=== PATIENT | female | born 1985 | race Caucasian/White ===

== ENCOUNTER 2016-12-07 17:28 | Emergency (ER) | payer BC ==
[2016-12-07 18:07] VITALS: BP 111/76
[2016-12-07] MEDS ORDERED: Ondansetron ODT TAB* 4 MG PO ONE (18:43)
--- NOTE | 2016-12-07 18:56 | UC ---
Ishan Calabrese Rebecca, scribed for Malathi Kohli MD on 12/07/16 at 1820 . GI Bleed HPI - HPI Summary HPI Summary: Pt is a 31 y/o F accompanied by her friend who presents to [facility] c/o hematemesis and acute on chronic abd pain. Symptoms began a few hours ago and abd pain has been constant since onset. Pain is in the RLQ, is currently ranked 7/10 and characterized as sharp. Reports two episodes of hematemesis while at work, the first more severe than the latter, with a small amount of blood present. Sx aggravated and alleviated by nothing. Pt has been taking Excedrin to treat the pain. LAst dose this am. Additionally c/o nausea, lightheadedness and dizziness. Pt attributes lightheadedness and dizziness as being secondary to a nasal cyst that is being surgically removed in 2 weeks. Denies dysuria and melena. Current abdominal pain is unlike previous pain associated with gastritis. 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 PSHx Rashad fundoplication. Denies recent sick contacts. Current menses, day #2, no h/o ovarian cysts - History Of Current Complaint Chief Complaint: [facility] [place] Stated Complaint: VOMITING Time Seen by Provider: 12/07/16 18:13 Hx Obtained From: Patient Hx Last Menstrual Period: 12/06/16 Onset/Duration: Sudden Onset, Still Present Timing: Constant Severity: Hematemesis Severity Initially: Moderate Severity Currently: Severe Pain Intensity: 7 Pain Scale Used: 0-10 Numeric Associated Pain: Discrete @ - RLQ Character: Sharp Aggravating Factor(s): Other - Nothing Alleviating Factor(s): Other - Nothing Associated Signs And Symptoms: Positive: Dizziness, Nausea, Other - Lightheadedness - Allergies/Home medications Allergies/Adverse Reactions: Allergies Allergy/AdvReac Type Severity Reaction Status Date / Time Pregabalin [From Lyrica] Allergy Severe Anaphylatic Verified 07/31/15 08:17 Shock Gabapentin Allergy Intermediate Hives Verified 07/31/15 08:17 Sulfa Drugs Allergy Intermediate Hives Verified 07/31/15 08:17 Amitriptyline [From Elavil] Allergy Unknown Verified 07/31/15 08:17 Reaction Details Amoxicillin Allergy Anaphylatic Verified 07/31/15 08:17 Shock [place] Blue FCF Allergy Unknown Verified 07/31/15 08:17 [From Jolessa] Reaction Details Bupropion [From Wellbutrin] Allergy Unknown Verified 07/31/15 08:17 Reaction Details Butalbital Allergy Unknown Verified 07/31/15 08:17 Reaction Details Carisoprodol Allergy Unknown Verified 07/31/15 08:17 Reaction Details Cefaclor Allergy Unknown Verified 07/31/15 08:17 Reaction Details Cefadroxil Allergy Unknown Verified 07/31/15 08:17 Reaction Details Cefdinir Allergy Unknown Verified 07/31/15 08:17 Reaction Details Celecoxib [From Celebrex] Allergy Unknown Verified 07/31/15 08:17 Reaction Details Cephalexin Allergy Unknown Verified 07/31/15 08:17 Reaction Details CI Pigment Blue 63 Allergy Unknown Verified 07/31/15 08:17 [From Cymbalta] Reaction Details Ciprofloxacin [From Cipro] Allergy Numbness Verified 07/31/15 08:17 And Tingling Clarithromycin Allergy Unknown Verified 07/31/15 08:17 Reaction Details Clindamycin Allergy Unknown Verified 07/31/15 08:17 [From Cleocin HCl] Reaction Details Codeine Allergy Unknown Verified 07/31/15 08:17 Reaction Details Desogestrel [From Kariva] Allergy Unknown Verified 07/31/15 08:17 Reaction Details Donepezil [From Aricept] Allergy Unknown Verified 07/31/15 08:17 Reaction Details Doxycycline Allergy Unknown Verified 07/31/15 08:17 Reaction Details Drospirenone [From Annabella] Allergy Unknown Verified 07/31/15 08:17 Reaction Details Duloxetine [From Cymbalta] Allergy Unknown Verified 07/31/15 08:17 Reaction Details Eletriptan [From Relpax] Allergy Unknown Verified 07/31/15 08:17 Reaction Details Escitalopram [From Lexapro] Allergy Unknown Verified 07/31/15 08:17 Reaction Details Ethinyl Estradiol Allergy Unknown Verified 07/31/15 08:17 [From Jolessa] Reaction Details Fluoxetine Allergy Unknown Verified 07/31/15 08:17 Reaction Details Hydrocodone Allergy Unknown Verified 07/31/15 08:17 Reaction Details Ibuprofen Allergy Unknown Verified 07/31/15 08:17 Reaction Details Lamotrigine [From Lamictal] Allergy Unknown Verified 07/31/15 08:17 Reaction Details Levofloxacin [From Levaquin] Allergy Unknown Verified 07/31/15 08:17 Reaction Details Levonorgestrel [From Jolessa] Allergy Unknown Verified 07/31/15 08:17 Reaction Details [place] Allergy Unknown Verified 07/31/15 08:17 Reaction Details Loratadine Allergy Unknown Verified 07/31/15 08:17 Reaction Details Meloxicam Allergy Unknown Verified 07/31/15 08:17 Reaction Details Metformin [From Glucophage] Allergy Unknown Verified 07/31/15 08:17 Reaction Details Metoclopramide [From Reglan] Allergy Unknown Verified 07/31/15 08:17 Reaction Details Naproxen [From Treximet] Allergy Unknown Verified 07/31/15 08:17 Reaction Details Norethindrone [From Necon] Allergy Unknown Verified 07/31/15 08:17 Reaction Details Pioglitazone [From Actos] Allergy Unknown Verified 07/31/15 08:17 Reaction Details Propranolol Allergy Unknown Verified 07/31/15 08:17 Reaction Details Red Dye [From Jolessa] Allergy Unknown Verified 07/31/15 08:17 Reaction Details Rizatriptan [From Maxalt] Allergy Unknown Verified 07/31/15 08:17 Reaction Details Sertraline [From Zoloft] Allergy Unknown Verified 07/31/15 08:17 Reaction Details Sulfamethoxazole Allergy Unknown Verified 07/31/15 08:17 w/Trimethoprim Reaction [From Bactrim] Details Sumatriptan [From Imitrex] Allergy Unknown Verified 07/31/15 08:17 Reaction Details Topiramate [From Topamax] Allergy Unknown Verified 07/31/15 08:17 Reaction Details Tramadol Allergy Unknown Verified 07/31/15 08:17 Reaction Details Trazodone Allergy Unknown Verified 07/31/15 08:17 Reaction Details Venlafaxine [From Effexor] Allergy Unknown Verified 07/31/15 08:17 Reaction Details Zolmitriptan [From Zomig] Allergy Unknown Verified 07/31/15 08:17 Reaction Details sprintec Allergy Unknown Uncoded 07/31/15 08:17 Reaction Details VINYL Allergy problems Uncoded 07/31/15 08:17 with breathing PMH/Surg Hx/FS Hx/Imm Hx Previously Healthy: No - insulin resistance, pcos, sinus cysts Endocrine History Of: Reports: Thyroid Disease - Hoshimotos Denies: Diabetes, Hyperthyroidism, Hypothyroidism, Dyslipidemia Cardiovascular History Of: Denies: Cardiac Disorders, Hypertension, Pacemaker/ICD, Myocardial Infarction , Congestive Heart Failure, Atrial Fibrillation, Deep Vein Thrombosis, Bleeding Disorders Respiratory History Of: Reports: Asthma Denies: COPD, Bronchitis, Pneumonia, Pulmonary Embolism GI/ History Of: Denies: Gastroesophageal Reflux, Ulcer, Gastrointestinal Bleed, Gall Bladder Disease, Kidney Stones, Diverticulitis, Renal Disease, Urosepsis Neurological History Of: Reports: Migraine - ROUTINE MEDICATION FOR Denies: TIA, CVA, Dementia, Seizures Psychological History Of: Denies: Anxiety, Depression, Bipolar Disorder, Schizophrenia, Post Traumatic Stress Disorder Cancer History Of: Denies: Lung Cancer, Colorectal Cancer, Breast Cancer, Prostate Cancer, Cervical Cancer Other History Of: Negative For: HIV, Hepatitis B, Hepatitis C, Anticoagulant Therapy - Surgical History Surgical History: Yes Surgery Procedure, Year, and Place: leep procedure 2013, foot operation 2015, fundoplication - Family History Known Family History: Positive: Cardiac Disease, Hypertension - Social History Occupation: Employed Full-time Lives: Alone Alcohol Use: None Substance Use Type: None Smoking Status (MU): Former Smoker Amount Used/How Often: 1 PPD X 6 MONTHS Have You Smoked in the Last Year: No When Did the Patient Quit Smoking/Using Tobacco: 2009 Review of Systems Constitutional: Negative Skin: Negative Eyes: Negative ENT: Negative Respiratory: Negative Cardiovascular: Negative Gastrointestinal: Abdominal Pain - RLQ, Other - nausea, hematemesis 2x Genitourinary: Negative Motor: Negative Neurovascular: Negative Musculoskeletal: Negative Neurological: Other - Lightheadedness and dizziness (secondary to nasal cyst) Psychological: Negative All Other Systems Reviewed And Are Negative: Yes Physical Exam Triage Information Reviewed: Yes Appearance: Well-Appearing, No Pain Distress, Well-Nourished, Other: - Pt laughing, interacting, intermittently expresses pain Vital Signs: Initial Vital Signs Temp 98.0 F 12/07/16 18:01 Pulse 68 12/07/16 18:01 Resp 18 12/07/16 18:01 BP 111/76 12/07/16 18:01 Pulse Ox 100 12/07/16 18:01 Vital Signs Reviewed: Yes Eye Exam: Normal ENT Exam: Normal Dental Exam: Normal Neck exam: Normal Neck: Positive: Supple, Nontender, No Lymphadenopathy Respiratory Exam: Normal Respiratory: Positive: Chest non-tender Cardiovascular Exam: Normal Cardiovascular: Positive: RRR, No Murmur Abdomen Description: Positive: Soft. Negative: Nontender - + TTP right mid abdomen. No guarding , no rebound. abd soft + BS No suprapubic discomfort Bowel Sounds: Positive: Present Musculoskeletal Exam: Normal Musculoskeletal: Positive: Strength Intact Neurological Exam: Normal Neurological: Positive: Alert Skin Exam: Normal Bleed Course/Dx - Course Course Of Treatment: Pt with right LQ pain, vomit x 2 with hemetemsis today. Pt with h/o gastritis s/p fundoplication - states feels different. Pt is taking excedrin for sinus cyst- scheduled for surgery. diff includes gastroenteritis, gastris, low suspicion but possible appendicitis. will give zofran ODT. transfer to ED for further eval. Pt by private car - in agreement with plan - Differential Dx/Diagnosis Provider Diagnoses: hematemesis. RLQ abd pain - Physician Notification/Consults Discussed Patient Care With: Dr. Angelo - [facility] [place] to ED for eval Time Discussed With Above Provider: 18:45 Instructed by Provider To: Transfer Discharge - Discharge Plan Condition: Stable Disposition: OTHER Discharge Disposition Comment: transfer to [facility] [place] for further eval Patient Education Materials: Abdominal Pain (ED), Hematemesis (ED) Referrals: Maritza Hector NP [Primary Care Provider] - Additional Instructions: Go directly to the emergency department at [facility]. They are expecting you Do not eat or drink anything until you are further evaluated Contact your doctor or return with questions or concerns The documentation as recorded by the Ishan larsen Rebecca accurately reflects the service I personally performed and the decisions made by me, Malathi Kohli MD.
== END 2016-12-07 19:05 | disposition left against medical advice (07) ==
LOC: UCEAST 17:28
DX: K92.0 Hematemesis (principal); R10.31 Right lower quadrant pain; E06.3 Autoimmune thyroiditis; J45.909 Unspecified asthma, uncomplicated; G43.909 Migraine, unspecified, not intractable, without status migrainosus; Z88.6 Allergy status to analgesic agent; Z88.1 Allergy status to other antibiotic agents; Z88.2 Allergy status to sulfonamides; Z88.8 Allergy status to other drugs, medicaments and biological substances; Z91.048 Other nonmedicinal substance allergy status
CPT/HCPCS: 99212; A9270-GY; G0463

== ENCOUNTER 2016-12-07 19:54 | Emergency (ER) | payer BC ==
[2016-12-07 20:04] VITALS: BP 98/74
[2016-12-07 20:42] LABS: Hematocrit 39 % (35-47); Hemoglobin 12.9 g/dl (12.0-16.0); Mean Corpuscular HGB Conc 33 g/dl (31-36); Mean Corpuscular Hemoglobin 30 pg (27-31); Mean Corpuscular Volume 91 fL (80-97); Mean Platelet Volume 10 um3 (7.4-10.4); Red Cell Distribution Width 13 % (10.5-15); White Blood Count 7.6 10^3/ul (3.5-10.8)
[2016-12-07 20:57] LABS: ALT 27 U/L (7-52); AST 28 U/L (13-39); Albumin 3.8 g/dL (3.2-5.2); Alkaline Phosphatase 59 U/L (34-104); Anion Gap 8 mmol/L (2-11); BUN/Creatinine Ratio 20.5 (8-20); Blood Urea Nitrogen 16 mg/dL (6-24); CO2 Carbon Dioxide 26 mmol/L (22-32); Calcium 9.3 mg/dL (8.6-10.3); Chloride 102 mmol/L (101-111); EGFR African American 110.1 (>60); EGFR Non-African American 85.6 (>60); Globulin 3.2 g/dL (2-4); Glucose 132 mg/dL (70-100); Lipase 19 U/L (11.0-82.0); Potassium 3.4 mmol/L (3.5-5.0); Sodium 136 mmol/L (133-145)
[2016-12-07 21:49] LABS: Urine Bacteria Absent (Absent); Urine Bilirubin Negative (Negative); Urine Glucose Negative (Negative); Urine Nitrite Negative (Negative)
[2016-12-07] MEDS ORDERED: Ondansetron ODT TAB* 4 MG PO ONE (21:53)
[2016-12-07] MEDS ORDERED: Al Hydrox/Mg Hydrox/Simet LIQ* 30 ML UDC PO ONE (21:53)
[2016-12-07] MEDS ORDERED: Lidocaine 2% VISCOUS* 15 ML UDC PO ONE (21:53)
[2016-12-07] MEDS ORDERED: Omeprazole CAP* 20 MG PO ONE (21:53)
--- NOTE | 2016-12-08 06:54 | ED ---
Lakshmi Calabrese Anna, scribed for Devin Callahan MD on 12/07/16 at 2128 . GI/ HPI - HPI Summary HPI Summary: Patient is a 31 y/o female coming to [facility] presenting with the sudden onset of hematemesis that began today. She had two episodes of hematemesis and one episode of emesis without blood, accompanied by nausea. The hematemesis had flecks of blood. She had chills throughout the day. She has had abdominal pain of severity 8/10 that began one week ago. It feels like a burning pain which has not been alleviated by the use of antacids. Denies diarrhea, melena, fever, diaphoresis. She had hematochezia a few weeks ago, which has since resolved. Denies known sick contacts. She has been taking Excedrin for sinus pain secondary to a cyst in the sinus cavity. She is on Abx at baseline. She previously took Zantac 325 mg/day and Omeprazole, but she does not take them anymore. She was seen at [facility] [place] today for the same symptoms before she was sent here. Patient medications were reviewed this visit. 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 Pain Intensity: 8 - Allergy/Home Medications Allergies/Adverse Reactions: Allergies Allergy/AdvReac Type Severity Reaction Status Date / Time Pregabalin [From Lyrica] Allergy Severe Anaphylatic Verified 12/07/16 20:18 Shock Gabapentin Allergy Intermediate Hives Verified 12/07/16 20:18 Sulfa Drugs Allergy Intermediate Hives Verified 12/07/16 20:18 Amitriptyline [From Elavil] Allergy Unknown Verified 12/07/16 20:18 Reaction Details Amoxicillin Allergy Anaphylatic Verified 12/07/16 20:18 Shock [place] Blue FCF Allergy Unknown Verified 12/07/16 20:18 [From Jolessa] Reaction Details Bupropion [From Wellbutrin] Allergy Unknown Verified 12/07/16 20:18 Reaction Details Butalbital Allergy Unknown Verified 12/07/16 20:18 Reaction Details Carisoprodol Allergy Unknown Verified 12/07/16 20:18 Reaction Details Cefaclor Allergy Unknown Verified 12/07/16 20:18 Reaction Details Cefadroxil Allergy Unknown Verified 12/07/16 20:18 Reaction Details Cefdinir Allergy Unknown Verified 12/07/16 20:18 Reaction Details Celecoxib [From Celebrex] Allergy Unknown Verified 12/07/16 20:18 Reaction Details Cephalexin Allergy Unknown Verified 12/07/16 20:18 Reaction Details CI Pigment Blue 63 Allergy Unknown Verified 12/07/16 20:18 [From Cymbalta] Reaction Details Ciprofloxacin [From Cipro] Allergy Numbness Verified 12/07/16 20:18 And Tingling Clarithromycin Allergy Unknown Verified 12/07/16 20:18 Reaction Details Clindamycin Allergy Unknown Verified 12/07/16 20:18 [From Cleocin HCl] Reaction Details Codeine Allergy Unknown Verified 12/07/16 20:18 Reaction Details Desogestrel [From Kariva] Allergy Unknown Verified 12/07/16 20:18 Reaction Details Donepezil [From Aricept] Allergy Unknown Verified 12/07/16 20:18 Reaction Details Doxycycline Allergy Unknown Verified 12/07/16 20:18 Reaction Details Drospirenone [From Annabella] Allergy Unknown Verified 12/07/16 20:18 Reaction Details Duloxetine [From Cymbalta] Allergy Unknown Verified 12/07/16 20:18 Reaction Details Eletriptan [From Relpax] Allergy Unknown Verified 12/07/16 20:18 Reaction Details Escitalopram [From Lexapro] Allergy Unknown Verified 12/07/16 20:18 Reaction Details Ethinyl Estradiol Allergy Unknown Verified 12/07/16 20:18 [From Jolessa] Reaction Details Fluoxetine Allergy Unknown Verified 12/07/16 20:18 Reaction Details Hydrocodone Allergy Unknown Verified 12/07/16 20:18 Reaction Details Ibuprofen Allergy Unknown Verified 12/07/16 20:18 Reaction Details Lamotrigine [From Lamictal] Allergy Unknown Verified 12/07/16 20:18 Reaction Details Levofloxacin [From Levaquin] Allergy Unknown Verified 12/07/16 20:18 Reaction Details Levonorgestrel [From Jolessa] Allergy Unknown Verified 12/07/16 20:18 Reaction Details [place] Allergy Unknown Verified 12/07/16 20:18 Reaction Details Loratadine Allergy Unknown Verified 12/07/16 20:18 Reaction Details Meloxicam Allergy Unknown Verified 12/07/16 20:18 Reaction Details Metformin [From Glucophage] Allergy Unknown Verified 12/07/16 20:18 Reaction Details Metoclopramide [From Reglan] Allergy Unknown Verified 12/07/16 20:18 Reaction Details Naproxen [From Treximet] Allergy Unknown Verified 12/07/16 20:18 Reaction Details Norethindrone [From Necon] Allergy Unknown Verified 12/07/16 20:18 Reaction Details Pioglitazone [From Actos] Allergy Unknown Verified 12/07/16 20:18 Reaction Details Propranolol Allergy Unknown Verified 12/07/16 20:18 Reaction Details Red Dye [From Jolessa] Allergy Unknown Verified 12/07/16 20:18 Reaction Details Rizatriptan [From Maxalt] Allergy Unknown Verified 12/07/16 20:18 Reaction Details Sertraline [From Zoloft] Allergy Unknown Verified 12/07/16 20:18 Reaction Details Sulfamethoxazole Allergy Unknown Verified 12/07/16 20:18 w/Trimethoprim Reaction [From Bactrim] Details Sumatriptan [From Imitrex] Allergy Unknown Verified 12/07/16 20:18 Reaction Details Topiramate [From Topamax] Allergy Unknown Verified 12/07/16 20:18 Reaction Details Tramadol Allergy Unknown Verified 12/07/16 20:18 Reaction Details Trazodone Allergy Unknown Verified 12/07/16 20:18 Reaction Details Venlafaxine [From Effexor] Allergy Unknown Verified 12/07/16 20:18 Reaction Details Zolmitriptan [From Zomig] Allergy Unknown Verified 12/07/16 20:18 Reaction Details sprintec Allergy Unknown Uncoded 12/07/16 20:18 Reaction Details VINYL Allergy problems Uncoded 12/07/16 20:18 with breathing PMH/Surg Hx/FS Hx/Imm Hx Endocrine/Hematology History: Reports: Hx Thyroid Disease - Hoshimotos Denies: Hx Anticoagulant Therapy, Hx Diabetes Cardiovascular History: Reports: Other Cardiovascular Problems/Disorders - HEART RATE GOES UP WHEN BLOOD SUGAR GETS TOO LOW Denies: Hx Congestive Heart Failure, Hx Deep Vein Thrombosis, Hx Hypertension , Hx Myocardial Infarction, Hx Pacemaker/ICD Respiratory History: Reports: Hx Asthma Denies: Hx Chronic Obstructive Pulmonary Disease (COPD), Hx Lung Cancer, Hx Pneumonia, Hx Pulmonary Embolism GI History: Reports: Hx Gastroesophageal Reflux Disease - ON OCCASION, Hx Hiatal Hernia - HAD SURGERY FOR, Other GI Disorders - GASTRITIS Denies: Hx Gall Bladder Disease, Hx Gastrointestinal Bleed, Hx Ulcer, Hx Urosepsis History: Reports: Other Problems/Disorders - KIDNEY INFECTION Denies: Hx Kidney Stones, Hx Renal Disease Musculoskeletal History: Reports: Hx Tendonitis - HX OF Sensory History: Denies: Hx Contacts or Glasses, Hx Hearing Aid Opthamlomology History: Denies: Hx Contacts or Glasses Neurological History: Reports: Hx Headaches - ROUTINE MEDICATION FOR, Hx Migraine - ROUTINE MEDICATION FOR Denies: Hx Dementia, Hx Seizures, Hx Transient Ischemic Attacks (TIA) Psychiatric History: Reports: Hx Panic Disorder - ANXIETY Denies: Hx Anxiety, Hx Depression, Hx Schizophrenia, Hx Bipolar Disorder - Surgical History Surgery Procedure, Year, and Place: leep procedure 2013, foot operation 2016, fundoplication Hx Anesthesia Reactions: No - Immunization History Date of Tetanus Vaccine: utd - 2009 Date of Influenza Vaccine: none Infectious Disease History: No Infectious Disease History: Denies: Hx Clostridium Difficile, Hx Hepatitis, Hx Human Immunodeficiency Virus (HIV), Hx of Known/Suspected MRSA, Hx Shingles, Hx Tuberculosis, Hx Known/ Suspected VRSA, History Other Infectious Disease, Traveled Outside the [place] in Last 30 Days - Family History Known Family History: Positive: Cardiac Disease, Hypertension - Social History Alcohol Use: None Substance Use Type: Reports: None Smoking Status (MU): Former Smoker Amount Used/How Often: 1 PPD X 6 MONTHS Have You Smoked in the Last Year: No Review of Systems Positive: Chills. Negative: Fever, Skin Diaphoresis Negative: Erythema Negative: Sore Throat Negative: Chest Pain Negative: Shortness Of Breath, Cough Gastrointestinal: Other - Denies melena Positive: Abdominal Pain, Vomiting, Nausea. Negative: Diarrhea Negative: dysuria, hematuria Negative: Myalgia, Edema Negative: Rash Neurological: Other - Denies dizziness All Other Systems Reviewed And Are Negative: Yes Physical Exam - Summary Physical Exam Summary: Constitutional: Well-developed, Well-nourished, Alert. (-) Distressed Skin: Warm, Dry HENT: Normocephalic; Atraumatic Eyes: Conjunctiva normal Neck: Musculoskeletal ROM normal neck. (-) JVD, (-) Stridor, (-) Tracheal deviation Cardio: Rhythm regular, rate normal, Heart sounds normal; Intact distal pulses; The pedal pulses are 2+ and symmetric. Radial pulses are 2+ and symmetric. (-) Murmur Pulmonary/Chest wall: Effort normal. (-) Respiratory distress, (-) Wheezes, (-) Rales Abd: Soft, (-) Tenderness, (-) Distension, (-) Guarding, (-) Rebound Musculoskeletal: (-) Edema Lymph: (-) Cervical adenopathy Neuro: Alert, Oriented x3 Psych: Mood and affect Normal Triage Information Reviewed: Yes Vital Signs On Initial Exam: Initial Vitals Temp Pulse Resp BP Pulse Ox 97.8 F 80 18 98/74 100 12/07/16 20:03 12/07/16 20:03 12/07/16 20:03 12/07/16 20:03 12/07/16 20:03 Vital Signs Reviewed: Yes - [place] Coma Scale Coma Scale Total: 15 Diagnostics - Vital Signs Vital Signs Temp Pulse Resp BP Pulse Ox 12/07/16 20:14 98.8 F 66 14 98/74 99 12/07/16 20:03 97.8 F 80 18 98/74 100 - Laboratory Lab Results: Lab Results 12/07/16 12/07/16 Range/Units 20:30 20:30 WBC 7.6 (3.5-10.8) 10^3/ul RBC 4.30 (4.0-5.4) 10^6/ul Hgb 12.9 (12.0-16.0) g/dl Hct 39 (35-47) % MCV 91 (80-97) fL MCH 30 (27-31) pg MCHC 33 (31-36) g/dl RDW 13 (10.5-15) % Plt Count 243 (150-450) 10^3/ul MPV 10 (7.4-10.4) um3 Neut % (Auto) 47.5 (38-83) % Lymph % (Auto) 44.2 (25-47) % [place] % (Auto) 6.5 (1-9) % Eos % (Auto) 1.1 (0-6) % Baso % (Auto) 0.7 (0-2) % Absolute Neuts (auto) 3.6 (1.5-7.7) 10^3/ul Absolute Lymphs (auto) 3.4 (1.0-4.8) 10^3/ul Absolute Monos (auto) 0.5 (0-0.8) 10^3/ul Absolute Eos (auto) 0.1 (0-0.6) 10^3/ul Absolute Basos (auto) 0.1 (0-0.2) 10^3/ul Absolute Nucleated RBC 0.01 10^3/ul Nucleated RBC % 0.1 Sodium 136 (133-145) mmol/L Potassium 3.4 L (3.5-5.0) mmol/L Chloride 102 (101-111) mmol/L Carbon Dioxide 26 (22-32) mmol/L Anion Gap 8 (2-11) mmol/L BUN 16 (6-24) mg/dL Creatinine 0.78 (0.51-0.95) mg/dL Est GFR ( Amer) 110.1 (>60) Est GFR (Non-Af Amer) 85.6 (>60) BUN/Creatinine Ratio 20.5 H (8-20) Glucose 132 H (70-100) mg/dL Calcium 9.3 (8.6-10.3) mg/dL Total Bilirubin 0.20 (0.2-1.0) mg/dL AST 28 (13-39) U/L ALT 27 (7-52) U/L Alkaline Phosphatase 59 (34-104) U/L Total Protein 7.0 (6.4-8.9) g/dL Albumin 3.8 (3.2-5.2) g/dL Globulin 3.2 (2-4) g/dL Albumin/Globulin Ratio 1.2 (1-3) Lipase 19 (11.0-82.0) U/L Beta HCG, Quant < 0.60 mIU/mL Result Diagrams: 12/07/16 20:30 12/07/16 20:30 Lab Statement: Any lab studies that have been ordered have been reviewed, and results considered in the medical decision making process. GIGU Course/Dx - Course Assessment/Plan: Patient is a 31 y/o female coming to [facility] presenting with the sudden onset of hematemesis that began today. Labs reveal potassium of 3.4, BUN/ Creatinine ratio of 20.5, glucose of 132. UA reveals 3+ blood, 3+ RBC, present squamous epithelial cells, and present ascorbic acid. Patient was given GI cocktail, Prilosec, and Zofran in the ED course. Patient was advised to stop using Excedrin. She will be discharged home with instructions for gastritis and a prescription for Zofran and Protonix. - Diagnoses Provider Diagnoses: NSAID induced gastritis Discharge - Discharge Plan Condition: Stable Disposition: HOME Prescriptions: Ondansetron ODT TAB* [Zofran 4 MG Odt TAB*] 4 mg PO Q8H PRN #12 tab.odt PRN Reason: Nausea/Vomiting Pantoprazole Sodium [Protonix] 20 mg PO DAILY #30 tab Patient Education Materials: Ondansetron (By mouth), Pantoprazole (By mouth), Safe Use of NSAIDs (ED) Referrals: Maritza Hector NP [Primary Care Provider] - Additional Instructions: Stop taking Excedrin and follow up with your primary care provider within 48 hours. RETURN TO THE EMERGENCY DEPARTMENT FOR CHANGING OR WORSENING SYMPTOMS The documentation as recorded by the Lakshmi larsen Anna accurately reflects the service I personally performed and the decisions made by , Devin Callahan MD.
== END 2016-12-07 22:28 | disposition home or self-care (01) ==
LOC: ED 19:54
DX: K29.71 Gastritis, unspecified, with bleeding (principal); T39.395A Adverse effect of other nonsteroidal anti-inflammatory drugs [NSAID], initial encounter; Y92.9 Unspecified place or not applicable; E06.3 Autoimmune thyroiditis; K21.9 Gastro-esophageal reflux disease without esophagitis; Z88.2 Allergy status to sulfonamides; Z88.0 Allergy status to penicillin
CPT/HCPCS: 36415; 80053; 81003; 81015; 83690; 84702; 85025; 99282; A9270-GY

== ENCOUNTER 2017-02-01 12:01 | Emergency (ER) | payer BC ==
[2017-02-01 12:44] VITALS: BP 110/64
--- NOTE | 2017-02-01 12:47 | UC ---
Throat Pain/Nasal Foreign HPI - HPI Summary HPI Summary: Sinus pain and cough - History of Current Complaint Hx Obtained From: Patient Hx Last Menstrual Period: 01/31/17 ?: No Onset/Duration: Gradual Onset, Worse Since - past 2 days Severity: Moderate Pain Intensity: 7 Cough: Nonproductive Associated Signs & Symptoms: Positive: Sinus Discomfort, Nasal Discharge, Other - burning in ears <Hailey Larios - Last Filed: 02/01/17 13:42> <Malathi Kohli - Last Filed: 02/03/17 08:03> - History of Current Complaint Chief Complaint: UCRespiratory Stated Complaint: SINUS COMPLAINT Time Seen by Provider: 02/01/17 12:41 - Allergies/Home Medications Allergies/Adverse Reactions: Allergies Allergy/AdvReac Type Severity Reaction Status Date / Time Pregabalin [From Lyrica] Allergy Severe Anaphylatic Verified 02/01/17 12:46 Shock Gabapentin Allergy Intermediate Hives Verified 02/01/17 12:46 Sulfa Drugs Allergy Intermediate Hives Verified 02/01/17 12:46 Amitriptyline [From Elavil] Allergy Unknown Verified 02/01/17 12:46 Reaction Details Amoxicillin Allergy Anaphylatic Verified 02/01/17 12:46 Shock [place] [facility] Allergy Unknown Verified 02/01/17 12:46 [From Jolessa] Reaction Details Bupropion [From Wellbutrin] Allergy Unknown Verified 02/01/17 12:46 Reaction Details Butalbital Allergy Unknown Verified 02/01/17 12:46 Reaction Details Carisoprodol Allergy Unknown Verified 02/01/17 12:46 Reaction Details Cefaclor Allergy Unknown Verified 02/01/17 12:46 Reaction Details Cefadroxil Allergy Unknown Verified 02/01/17 12:46 Reaction Details Cefdinir Allergy Unknown Verified 02/01/17 12:46 Reaction Details Celecoxib [From Celebrex] Allergy Unknown Verified 02/01/17 12:46 Reaction Details Cephalexin Allergy Unknown Verified 02/01/17 12:46 Reaction Details CI Pigment Blue 63 Allergy Unknown Verified 02/01/17 12:46 [From Cymbalta] Reaction Details Ciprofloxacin [From Cipro] Allergy Numbness Verified 02/01/17 12:46 And Tingling Clarithromycin Allergy Unknown Verified 02/01/17 12:45 Reaction Details Clindamycin Allergy Unknown Verified 02/01/17 12:45 [From Cleocin HCl] Reaction Details Codeine Allergy Unknown Verified 02/01/17 12:46 Reaction Details Desogestrel [From Kariva] Allergy Unknown Verified 02/01/17 12:46 Reaction Details Donepezil [From Aricept] Allergy Unknown Verified 02/01/17 12:46 Reaction Details Doxycycline Allergy Unknown Verified 02/01/17 12:46 Reaction Details Drospirenone [From Annabella] Allergy Unknown Verified 02/01/17 12:46 Reaction Details Duloxetine [From Cymbalta] Allergy Unknown Verified 02/01/17 12:46 Reaction Details Eletriptan [From Relpax] Allergy Unknown Verified 02/01/17 12:46 Reaction Details Escitalopram [From Lexapro] Allergy Unknown Verified 02/01/17 12:46 Reaction Details Ethinyl Estradiol Allergy Unknown Verified 02/01/17 12:46 [From Jolessa] Reaction Details Fluoxetine Allergy Unknown Verified 02/01/17 12:46 Reaction Details Hydrocodone Allergy Unknown Verified 02/01/17 12:46 Reaction Details Ibuprofen Allergy Unknown Verified 02/01/17 12:46 Reaction Details Lamotrigine [From Lamictal] Allergy Unknown Verified 02/01/17 12:46 Reaction Details Levofloxacin [From Levaquin] Allergy Unknown Verified 02/01/17 12:46 Reaction Details Levonorgestrel [From Jolessa] Allergy Unknown Verified 02/01/17 12:46 Reaction Details [place] Allergy Unknown Verified 02/01/17 12:46 Reaction Details Loratadine Allergy Unknown Verified 02/01/17 12:46 Reaction Details Meloxicam Allergy Unknown Verified 02/01/17 12:46 Reaction Details Metformin [From Glucophage] Allergy Unknown Verified 02/01/17 12:46 Reaction Details Metoclopramide [From Reglan] Allergy Unknown Verified 12/07/16 20:18 Reaction Details Naproxen [From Treximet] Allergy Unknown Verified 12/07/16 20:18 Reaction Details Norethindrone [From Necon] Allergy Unknown Verified 02/01/17 12:46 Reaction Details Pioglitazone [From Actos] Allergy Unknown Verified 02/01/17 12:46 Reaction Details Propranolol Allergy Unknown Verified 02/01/17 12:46 Reaction Details Red Dye [From Jolessa] Allergy Unknown Verified 02/01/17 12:46 Reaction Details Rizatriptan [From Maxalt] Allergy Unknown Verified 02/01/17 12:46 Reaction Details Sertraline [From Zoloft] Allergy Unknown Verified 02/01/17 12:46 Reaction Details Sulfamethoxazole Allergy Unknown Verified 02/01/17 12:46 w/Trimethoprim Reaction [From Bactrim] Details Sumatriptan [From Imitrex] Allergy Unknown Verified 02/01/17 12:46 Reaction Details Topiramate [From Topamax] Allergy Unknown Verified 02/01/17 12:46 Reaction Details Tramadol Allergy Unknown Verified 02/01/17 12:46 Reaction Details Trazodone Allergy Unknown Verified 02/01/17 12:46 Reaction Details Venlafaxine [From Effexor] Allergy Unknown Verified 02/01/17 12:46 Reaction Details Zolmitriptan [From Zomig] Allergy Unknown Verified 02/01/17 12:46 Reaction Details sprintec Allergy Unknown Uncoded 02/01/17 12:46 Reaction Details VINYL Allergy problems Uncoded 02/01/17 12:46 with breathing PMH/Surg Hx/FS Hx/Imm Hx Previously Healthy: No Endocrine History: Thyroid Disease, Other Other Endocrine History: insulin resistant Respiratory History: Asthma Neurological History: Migraine Other History Of: Negative For: HIV, Hepatitis B, Hepatitis C, Anticoagulant Therapy - Surgical History Surgical History: Yes Surgery Procedure, Year, and Place: leep procedure 2013, foot operation 2016, fundoplication - Family History Known Family History: Positive: Cardiac Disease, Hypertension - Social History Occupation: Employed Full-time Lives: With Family Alcohol Use: None Substance Use Type: None Smoking Status (MU): Former Smoker Amount Used/How Often: 1 PPD X 6 MONTHS Have You Smoked in the Last Year: No When Did the Patient Quit Smoking/Using Tobacco: 2009 - Immunization History Hx Tetanus, Diphtheria Vaccination: Yes Vaccination Up to Date: Yes <Hailey Larios - Last Filed: 02/01/17 13:42> Review of Systems Constitutional: Fatigue Skin: Negative Eyes: Negative ENT: Sore Throat, Ear Ache, Nasal Discharge, Sinus Congestion, Sinus Pain/ Tenderness Respiratory: Cough Cardiovascular: Negative Gastrointestinal: Negative Genitourinary: Negative Motor: Negative Neurovascular: Negative Musculoskeletal: Negative Neurological: Headache Psychological: Negative All Other Systems Reviewed And Are Negative: Yes <Hailey Larios - Last Filed: 02/01/17 13:42> Physical Exam Triage Information Reviewed: Yes Appearance: Well-Nourished, Ill-Appearing - mild, Pain Distress - mild Vital Signs Reviewed: Yes Eye Exam: Normal Eyes: Positive: Conjunctiva Clear, Other: - sinus shiners ENT Exam: Normal ENT: Positive: Normal ENT inspection, Hearing grossly normal, Pharynx normal, Nasal congestion, Nasal drainage, TMs normal. Negative: Tonsillar swelling, Tonsillar exudate, Trismus, Muffled/hoarse voice Dental Exam: Normal Neck exam: Normal Neck: Positive: Supple, Nontender Respiratory Exam: Normal Respiratory: Positive: Chest non-tender, No respiratory distress, No accessory muscle use, Wheezing - bilateral Cardiovascular Exam: Normal Cardiovascular: Positive: RRR, No Murmur, Pulses Normal, Brisk Capillary Refill Musculoskeletal Exam: Normal Musculoskeletal: Positive: Strength Intact, ROM Intact, No Edema Neurological Exam: Normal Neurological: Positive: Alert, Muscle Tone Normal Psychological Exam: Normal Skin Exam: Normal <Hailey Larios - Last Filed: 02/01/17 13:42> Vital Signs: Initial Vital Signs Temp 98.6 F 02/01/17 12:38 Pulse 81 02/01/17 12:38 Resp 20 02/01/17 12:38 BP 110/64 02/01/17 12:38 Pulse Ox 100 02/01/17 12:38 <Malathi Kohli - Last Filed: 02/03/17 08:03> Re-Evaluation - Re-Evaluation First Eval Change: Improved - wheeze resolved increase aeration feeling better <Hailey Larios - Last Filed: 02/01/17 13:42> Throat Pain/Nasal Course/Dx - Course Assessment/Plan: flonase, flovent, z-pac follow with pcp, check with [facility] to see if they can assist you in getting your flovent-- - Differential Dx/Diagnosis Differential Diagnosis/HQI/PQRI: Pharyngitis, Sinusitis, URI Provider Diagnoses: Sinusitis, Bronchospasm <Hailey Larios - Last Filed: 02/01/17 13:42> Discharge <Hailey Larios - Last Filed: 02/01/17 13:42> <Malathi Kohli - Last Filed: 02/03/17 08:03> - Discharge Plan Condition: Stable Disposition: HOME Prescriptions: Azithromycin TAB* [Zithromax TAB (Z-LEILA) 250 mg #6 tabs] 2 tab PO .TODAY, THEN 1 DAILY #1 leila Fluticasone HFA 110 mcg(NF) [Flovent HFA 110 mcg(NF)] 1 puff INH BID #1 mdi Fluticasone NASAL SPRAY 50MCG* [Flonase NASAL SPRAY 50MCG*] 2 spray BOTH NARES DAILY #1 btl Patient Education Materials: Sinusitis (ED), Bronchospasm (ED), How to Use a Metered-Dose Inhaler and a Spacer (ED) Referrals: Maritza Hector CONTRACT NEGOTIATION MANAGER [Primary Care Provider] - 1 Week Additional Instructions: Consider calling the [facility] and /or [facility] for assistance in paying for your medication-- -Best Wishes Niyah Attestation Statement User Type: Provider - I was available for consult. This patient was seen by the ANGELINE. The patient was not presented to, seen by, or examined by me. -Sharon <Malathi Kohli - Last Filed: 02/03/17 08:03>
[2017-02-01] MEDS ORDERED: Albuterol/Ipratropium NEB.SOL* Albuterol 2.5 MG/Ipratropium 0.5 MG 3 ML INH ONE (12:54)
== END 2017-02-01 13:48 | disposition home or self-care (01) ==
LOC: UCEAST 12:01
DX: Z87.891 Personal history of nicotine dependence (principal); J32.9 Chronic sinusitis, unspecified; J98.01 Acute bronchospasm
CPT/HCPCS: 99212; A9270-GY; G0463

== ENCOUNTER 2017-06-16 13:24 | Emergency (ER) | payer BC ==
[2017-06-16 13:46] VITALS: BP 111/79
--- NOTE | 2017-06-16 14:06 | UC ---
Throat Pain/Nasal Foreign HPI - HPI Summary HPI Summary: 32 y/o female DM type I presents to the urgent care c/o sore throat, productive cough and sinus pain and fever sine 06/14/2017. Pt reports she has been coughing on and off since 01/2017 that she was here. However her symptoms are getting worse the past 2 days, with CALDERÓN, sinus pain and SOB. Pt has been using her albuterol inhaler more often. She states Hx of chronic sinusitis. She has an appt with linter operator next week and ENT for surgery on 06/2017. Pt has been taking Tylenol to alleviate symptoms. Pt denies chest pain, abdominal pain, N/V/ D, urinary symptoms. - History of Current Complaint Chief Complaint: UCRespiratory Stated Complaint: CHEEK PAIN, FEVER, SORE THROAT Time Seen by Provider: 06/16/17 14:04 Hx Obtained From: Patient Hx Last Menstrual Period: 03/2017 ?: No Onset/Duration: Gradual Onset, Lasting Weeks - Hx of chronic sinusitis, Still Present, Worse Since - 2 days ago Severity: Moderate Pain Intensity: 7 Pain Scale Used: 0-10 Numeric Cough: Productive - with green sputum Associated Signs & Symptoms: Positive: Wheezing, Sinus Discomfort, Nasal Discharge - yellowish discharge - Epiglottits Risk Factors Epiglottis Risk Factors: Negative - Allergies/Home Medications Allergies/Adverse Reactions: Allergies Allergy/AdvReac Type Severity Reaction Status Date / Time Pregabalin [From Lyrica] Allergy Severe Anaphylatic Verified 06/16/17 13:47 Shock Gabapentin Allergy Intermediate Hives Verified 06/16/17 13:47 Sulfa Drugs Allergy Intermediate Hives Verified 06/16/17 13:47 Amitriptyline [From Elavil] Allergy Unknown Verified 06/16/17 13:47 Reaction Details Amoxicillin Allergy Anaphylatic Verified 06/16/17 13:47 Shock [place] [facility] Allergy Unknown Verified 06/16/17 13:47 [From Jolessa] Reaction Details Bupropion [From Wellbutrin] Allergy Unknown Verified 06/16/17 13:47 Reaction Details Butalbital Allergy Unknown Verified 06/16/17 13:47 Reaction Details Carisoprodol Allergy Unknown Verified 06/16/17 13:47 Reaction Details Cefaclor Allergy Unknown Verified 06/16/17 13:47 Reaction Details Cefadroxil Allergy Unknown Verified 06/16/17 13:47 Reaction Details Cefdinir Allergy Unknown Verified 06/16/17 13:47 Reaction Details Celecoxib [From Celebrex] Allergy Unknown Verified 06/16/17 13:47 Reaction Details Cephalexin Allergy Unknown Verified 06/16/17 13:47 Reaction Details CI Pigment Blue 63 Allergy Unknown Verified 06/16/17 13:47 [From Cymbalta] Reaction Details Ciprofloxacin [From Cipro] Allergy Numbness Verified 06/16/17 13:47 And Tingling Clarithromycin Allergy Unknown Verified 06/16/17 13:47 Reaction Details Clindamycin Allergy Unknown Verified 06/16/17 13:47 [From Cleocin HCl] Reaction Details Codeine Allergy Unknown Verified 06/16/17 13:47 Reaction Details Desogestrel [From Kariva] Allergy Unknown Verified 06/16/17 13:47 Reaction Details Donepezil [From Aricept] Allergy Unknown Verified 06/16/17 13:47 Reaction Details Doxycycline Allergy Unknown Verified 06/16/17 13:47 Reaction Details Drospirenone [From Annabella] Allergy Unknown Verified 06/16/17 13:47 Reaction Details Duloxetine [From Cymbalta] Allergy Unknown Verified 06/16/17 13:47 Reaction Details Eletriptan [From Relpax] Allergy Unknown Verified 06/16/17 13:47 Reaction Details Escitalopram [From Lexapro] Allergy Unknown Verified 06/16/17 13:47 Reaction Details Ethinyl Estradiol Allergy Unknown Verified 06/16/17 13:47 [From Jolessa] Reaction Details Fluoxetine Allergy Unknown Verified 06/16/17 13:47 Reaction Details Hydrocodone Allergy Unknown Verified 06/16/17 13:47 Reaction Details Ibuprofen Allergy Unknown Verified 06/16/17 13:47 Reaction Details Lamotrigine [From Lamictal] Allergy Unknown Verified 06/16/17 13:47 Reaction Details Levofloxacin [From Levaquin] Allergy Unknown Verified 06/16/17 13:47 Reaction Details Levonorgestrel [From Jolessa] Allergy Unknown Verified 06/16/17 13:47 Reaction Details [place] Allergy Unknown Verified 06/16/17 13:47 Reaction Details Loratadine Allergy Unknown Verified 06/16/17 13:47 Reaction Details Meloxicam Allergy Unknown Verified 06/16/17 13:47 Reaction Details Metformin [From Glucophage] Allergy Unknown Verified 06/16/17 13:47 Reaction Details Metoclopramide [From Reglan] Allergy Unknown Verified 06/16/17 13:47 Reaction Details Naproxen [From Treximet] Allergy Unknown Verified 06/16/17 13:47 Reaction Details Norethindrone [From Necon] Allergy Unknown Verified 06/16/17 13:47 Reaction Details Pioglitazone [From Actos] Allergy Unknown Verified 06/16/17 13:47 Reaction Details Propranolol Allergy Unknown Verified 06/16/17 13:47 Reaction Details Red Dye [From Jolessa] Allergy Unknown Verified 06/16/17 13:47 Reaction Details Rizatriptan [From Maxalt] Allergy Unknown Verified 06/16/17 13:47 Reaction Details Sertraline [From Zoloft] Allergy Unknown Verified 06/16/17 13:47 Reaction Details Sulfamethoxazole Allergy Unknown Verified 06/16/17 13:47 w/Trimethoprim Reaction [From Bactrim] Details Sumatriptan [From Imitrex] Allergy Unknown Verified 06/16/17 13:47 Reaction Details Topiramate [From Topamax] Allergy Unknown Verified 06/16/17 13:47 Reaction Details Tramadol Allergy Unknown Verified 06/16/17 13:47 Reaction Details Trazodone Allergy Unknown Verified 06/16/17 13:47 Reaction Details Venlafaxine [From Effexor] Allergy Unknown Verified 06/16/17 13:47 Reaction Details Zolmitriptan [From Zomig] Allergy Unknown Verified 06/16/17 13:47 Reaction Details sprintec Allergy Unknown Uncoded 06/16/17 13:47 Reaction Details VINYL Allergy problems Uncoded 06/16/17 13:47 with breathing PMH/Surg Hx/FS Hx/Imm Hx Previously Healthy: Yes Endocrine History: Diabetes - Type I Other Endocrine History: Hashimotos thyroditis, PCOS Respiratory History: Asthma GI/ History: Ulcer Other History Of: Negative For: HIV, Hepatitis B, Hepatitis C, Anticoagulant Therapy - Surgical History Surgical History: Yes Surgery Procedure, Year, and Place: leep procedure 2013, foot operation 2016, fundoplication - Family History Known Family History: Positive: Cardiac Disease, Hypertension - Social History Occupation: Employed Full-time Lives: With Family Alcohol Use: None Substance Use Type: None Smoking Status (MU): Former Smoker Amount Used/How Often: 1 PPD X 6 MONTHS Have You Smoked in the Last Year: No When Did the Patient Quit Smoking/Using Tobacco: 2009 - Immunization History Most Recent Influenza Vaccination: unknown Hx Tetanus, Diphtheria Vaccination: Yes Vaccination Up to Date: Yes Review of Systems Constitutional: Fever - subjective at home Skin: Negative Eyes: Negative ENT: Sore Throat, Nasal Discharge, Sinus Congestion, Sinus Pain/Tenderness Respiratory: Shortness Of Breath, Cough - productive,, Other - wheezing Cardiovascular: Negative Gastrointestinal: Negative Genitourinary: Negative Motor: Negative Neurovascular: Negative Musculoskeletal: Negative Neurological: Negative Psychological: Negative Is Patient Immunocompromised?: No All Other Systems Reviewed And Are Negative: Yes Physical Exam Triage Information Reviewed: Yes Vital Signs: Initial Vital Signs Temp 97.4 F 06/16/17 13:41 Pulse 88 06/16/17 13:41 Resp 16 06/16/17 13:41 BP 111/79 06/16/17 13:41 Pulse Ox 100 06/16/17 13:41 - Additional Comments Vital Signs Reviewed: Yes General: well developed, well nourished female sitting in the examining table w/ o any apparent distress Eyes: Positive: Conjunctiva Clear - PERRLA, EOMI, fundi grossly normal ENT: Positive: Normal ENT inspection, Hearing grossly normal, Pharynx with mild erythema, Nasal congestion - edematous and erythematous nasal mucosa, Nasal drainage - yellowish drainage, TMs normal. Negative: Tonsillar swelling, Tonsillar exudate Neck: Positive: Supple, Nontender, No Lymphadenopathy Respiratory: no orthopnea or dyspnea. Able to speak in full sentences, no retractions or accessory muscle use, no tripod position, stridor, or head bobbing. mild scattered wheezing and rhonchi in upper posterior lungs, no crackles or rales. Cardiovascular: Positive: RRR, No Murmur, Pulses Normal, Brisk Capillary Refill Abdomen Description: Positive: Nontender, No Organomegaly, Soft. Negative: CVA Tenderness (R), CVA Tenderness (L) Bowel Sounds: Positive: Present Musculoskeletal Exam: Normal Musculoskeletal: Positive: Strength Intact, ROM Intact, No Edema Neurological Exam: Normal Psychological Exam: Normal Skin Exam: Normal Throat Pain/Nasal Course/Dx - Course Assessment/Plan: 32 y/o female DM type I presents to the urgent care c/o sore throat, productive cough and sinus pain and fever sine 06/14/2017. Pt reports she has been coughing on and off since 01/2017 that she was here. However her symptoms are getting worse the past 2 days, with CALDERÓN, sinus pain and SOB. Pt has been using her albuterol inhaler more often. She states Hx of chronic sinusitis. She has an appt with linter operator next week and ENT for surgery on 2016. Pt has been taking Tylenol to alleviate symptoms. Pt denies chest pain, abdominal pain, N/V/D, urinary symptoms. Hx obtained. Pt with acute sinusitis and B/L posterior lungs with wheezing and rhinchi on examination. Chest X-ray ordered r/o pneumonia. Impression: no acute cariopulmonary disease observed. Pt w/ multiplemedication allergies like Prednisone. Pt given albuterol neb treatment. Pt's lungs cleared. Pt Rx Z-michael which she has taking before for sinusitis. Strongly advised to f/u with [place] ENT in [place] for further management. Pt unable to get the nebulizer machine since her insurance doesn't cover for it. Pt explained D/C instructions. Pt understood and agreed with plan of care. - Differential Dx/Diagnosis Differential Diagnosis/HQI/PQRI: Influenza, Laryngitis, Mononucleosis, Pharyngitis, Sinusitis, Tonsillitis, URI, Other - bronchitis, asthma exacerbation, pneumonia Provider Diagnoses: 1- Acute sinustis. 2- Asthma exacerbation Discharge - Discharge Plan Condition: Stable Disposition: HOME Prescriptions: Albuterol HFA INHALER* [Ventolin HFA Inhaler*] 1 - 2 puff INH Q4H PRN #1 mdi PRN Reason: Wheezing Azithromyxin MICHAEL (NF) [Z-Michael (Zithromax) 250 mg tabs #6] 2 tab PO .TODAY, THEN 1 DAILY #6 tab Fluticasone NASAL SPRAY 50MCG* [Flonase NASAL SPRAY 50MCG*] 2 spray BOTH NARES DAILY #1 btl Patient Education Materials: Asthma (ED), Sinusitis (ED) Referrals: Maritza Hector UTILITY TRACTOR OPERATOR [Primary Care Provider] - 2 Days Additional Instructions: 1- Please increase fluid intake and rest. take full course of antibiotic to avoid resistance 2-Use Flonase as directed to help drain fluid. Also buy saline drops to clear sinuses 3-Use the albuterol inhaler to alleviate SOB and wheezing, increase fluid intake , eat well and rest. 4-Return to the clinic or PCP if symptoms do not improve for further management and treatment 5- If you develope severe SOB and wheezing please go immediately to the ER for further management
[2017-06-16] MEDS ORDERED: Albuterol/Ipratropium NEB.SOL* Albuterol 2.5 MG/Ipratropium 0.5 MG 3 ML INH ONE (14:26)
--- NOTE | 2017-06-16 14:54 | RAD ---
INDICATION: Cough, wheezing and shortness of breath COMPARISON: Most recent comparison chest x-rays dated April 23, 2016 TECHNIQUE: PA and lateral views of the chest were obtained. FINDINGS: The heart and mediastinum are normal in size and contour. At the right lung base there is faint linear density unchanged since the prior chest x-ray. Otherwise the lungs are grossly clear. There is no evidence of large pleural effusion. Visualized bones are normal for the patient's age. Surgical clips are again seen overlying the left upper abdomen. There is no radiographic evidence of free air beneath the diaphragm IMPRESSION: LINEAR DENSITY AT THE RIGHT LUNG BASE IS SIMILAR TO THE PRIOR CHEST X-RAY POSSIBLY REPRESENTING SCARRING IN THIS OTHERWISE NONACUTE CHEST X-RAY.
== END 2017-06-16 15:27 | disposition home or self-care (01) ==
LOC: UCEAST 13:24
DX: J01.90 Acute sinusitis, unspecified (principal); J45.901 Unspecified asthma with (acute) exacerbation
CPT/HCPCS: 71020; 87651; 99212; A9270-GY; G0463

== ENCOUNTER 2017-09-21 10:54 | Emergency (ER) | payer BC, OTHER ==
[2017-09-21 11:08] VITALS: BP 123/76
--- NOTE | 2017-09-29 15:05 | UC ---
Lamonte Calabrese Thomas, scribed for Ele Bonner DO on 09/21/17 at 1120 . General HPI - HPI Summary HPI Summary: The patient is a 32 year old female complaining of chills, fever (Tmax 100), dizziness (when lying flat), n/v, body aches, abd dicomfort and generalized weakness that began six days ago. Prior to the last 6 days, pt had other sx of cough, st, sinus congestion that are ongoing and for which she is on azithro. She currently rates the pain 03/30. The patient had episodes of diarrhea between six and three days ago. She reports that she has been vomiting for the last six days. She denies dysuria. The patient is employed at [employer]. She is concerned that she will be fired due to calling off work because she has been sick. pt very concerned about her blood sugar, demanding a finger stick. pt believes that she is at risk of having low blood sugar because she did not take glumetza( metforin) which she refers to as her "insulin pill". - History of Current Complaint Chief Complaint: UCRespiratory Stated Complaint: FEVER, AND SORE THROAT Time Seen by Provider: 09/21/17 11:01 Hx Obtained From: Patient Hx Last Menstrual Period: 09/10/17 Onset/Duration: Lasting Days - 6, Still Present Timing: Constant Onset Severity: Moderate Current Severity: Severe Pain Intensity: 9 Associated Signs & Symptoms: Positive: Agitation, Abdominal Pain, Cough, Dizziness, Diarrhea, Decreased Oral Intake, Fever, Headache, Nausea, Vomiting, Weakness, Other - chills, subjective fever, vomiting, dizziness, body aches, generalized weakness - Allergy/Home Medications Allergies/Adverse Reactions: Allergies Allergy/AdvReac Type Severity Reaction Status Date / Time amitriptyline Allergy Unknown Verified 09/21/17 11:34 Reaction Details amoxicillin Allergy Anaphylatic Verified 09/21/17 11:34 Shock bupropion Allergy Unknown Verified 09/21/17 11:34 Reaction Details butalbital Allergy Unknown Verified 09/21/17 11:34 Reaction Details carisoprodol Allergy Unknown Verified 09/21/17 11:36 Reaction Details cefaclor Allergy Unknown Verified 09/21/17 11:34 Reaction Details cefadroxil Allergy Unknown Verified 09/21/17 11:34 Reaction Details cefdinir Allergy Unknown Verified 09/21/17 11:39 Reaction Details celecoxib Allergy Unknown Verified 09/21/17 11:41 Reaction Details cephalexin Allergy Unknown Verified 09/21/17 11:39 Reaction Details ciprofloxacin Allergy Numbness Verified 09/21/17 11:39 And Tingling clarithromycin Allergy Unknown Verified 09/21/17 11:39 Reaction Details clindamycin Allergy Unknown Verified 09/21/17 11:44 Reaction Details codeine Allergy Unknown Verified 09/21/17 11:44 Reaction Details desogestrel Allergy Unknown Verified 09/21/17 11:44 Reaction Details donepezil Allergy Unknown Verified 09/21/17 11:44 Reaction Details doxycycline Allergy Unknown Verified 09/21/17 11:44 Reaction Details drospirenone Allergy Unknown Verified 09/21/17 11:44 Reaction Details duloxetine [From Cymbalta] Allergy Unknown Verified 09/21/17 11:39 Reaction Details eletriptan Allergy Unknown Verified 09/21/17 11:49 Reaction Details escitalopram Allergy Unknown Verified 09/21/17 11:49 Reaction Details ethinyl estradiol Allergy Unknown Verified 09/21/17 11:34 [From Jolessa] Reaction Details fluoxetine Allergy Unknown Verified 09/21/17 11:49 Reaction Details gabapentin Allergy Hives Verified 09/21/17 11:34 hydrocodone Allergy Unknown Verified 09/21/17 11:49 Reaction Details ibuprofen Allergy Unknown Verified 09/21/17 11:53 Reaction Details lamotrigine [From Lamictal] Allergy Unknown Verified 09/21/17 11:53 Reaction Details levofloxacin [From Levaquin] Allergy Unknown Verified 09/21/17 11:53 Reaction Details levonorgestrel [From Jolessa] Allergy Unknown Verified 09/21/17 11:34 Reaction Details lithium Allergy Unknown Verified 09/21/17 11:53 Reaction Details loratadine Allergy Unknown Verified 09/21/17 11:53 Reaction Details meloxicam Allergy Unknown Verified 09/21/17 11:53 Reaction Details metformin Allergy Unknown Verified 09/21/17 11:53 Reaction Details metoclopramide [From Reglan] Allergy Unknown Verified 09/21/17 11:57 Reaction Details naproxen Allergy Unknown Verified 09/21/17 11:58 Reaction Details norethindrone Allergy Unknown Verified 09/21/17 11:57 [From Necon 0.5/35 (21)] Reaction Details pioglitazone [From Actos] Allergy Unknown Verified 09/21/17 11:57 Reaction Details pregabalin Allergy Anaphylatic Verified 09/21/17 11:34 Shock propranolol Allergy Unknown Verified 09/21/17 11:58 Reaction Details red dye Allergy Unknown Verified 09/21/17 11:57 Reaction Details rizatriptan [From Maxalt] Allergy Unknown Verified 09/21/17 11:57 Reaction Details sertraline [From Zoloft] Allergy Unknown Verified 09/21/17 11:57 Reaction Details Sulfa (Sulfonamide Allergy Hives Verified 09/21/17 11:34 Antibiotics) sulfamethoxazole Allergy Unknown Verified 09/21/17 12:01 [From Bactrim] Reaction Details sumatriptan [From Imitrex] Allergy Unknown Verified 09/21/17 12:01 Reaction Details topiramate [From Topamax] Allergy Unknown Verified 09/21/17 12:01 Reaction Details tramadol Allergy Unknown Verified 09/21/17 12:01 Reaction Details trazodone Allergy Unknown Verified 09/21/17 12:01 Reaction Details trimethoprim [From Bactrim] Allergy Unknown Verified 09/21/17 12:01 Reaction Details venlafaxine [From Effexor] Allergy Unknown Verified 09/21/17 12:01 Reaction Details zolmitriptan [From Zomig] Allergy Unknown Verified 09/21/17 12:02 Reaction Details CI pigment blue Allergy Unknown Uncoded 09/21/17 11:57 Reaction Details sprintec Allergy Unknown Uncoded 06/16/17 13:47 Reaction Details triximet Allergy Unknown Uncoded 09/21/17 11:57 Reaction Details VINYL Allergy problems Uncoded 06/16/17 13:47 with breathing Home Medications: Home Medications Acetaminophen [Acetaminophen Extra Strength] 500 mg PO Q6H PRN 09/21/17 [ History Confirmed 09/21/17] Azelastine 0.15% NASAL(NF) [Astepro 0.15% NASAL (NF)] 1 spray NASAL BID [History Confirmed 09/21/17] Budesonide/Formote 80/4.5(NF) [Symbicort 80/4.5 (NF)] 1 puff INH BID PRN [History Confirmed 09/21/17] metFORMIN* [Glucophage 500 MG TAB *] 500 mg PO DAILY 09/21/17 [History Confirmed 09/21/17] PMH/Surg Hx/FS Hx/Imm Hx Endocrine History: Diabetes - prediabetic, Other - Noy Other Endocrine History: Noy Neurological History: Migraine Other History Of: Negative For: HIV, Hepatitis B, Hepatitis C, Anticoagulant Therapy - Surgical History Surgical History: Yes Surgery Procedure, Year, and Place: leep procedure 2013, foot operation 2016, fundoplication - Family History Known Family History: Positive: Cardiac Disease, Hypertension - Social History Occupation: Employed Full-time Alcohol Use: None Substance Use Type: None Smoking Status (MU): Former Smoker Amount Used/How Often: 1 PPD X 6 MONTHS Have You Smoked in the Last Year: No When Did the Patient Quit Smoking/Using Tobacco: 2009 - Immunization History Most Recent Influenza Vaccination: unknown Hx Tetanus, Diphtheria Vaccination: Yes Vaccination Up to Date: Yes Review of Systems Constitutional: Fever - subjective, Chills ENT: Sore Throat, Ear Ache, Sinus Congestion, Sinus Pain/Tenderness Respiratory: Cough Gastrointestinal: Vomiting, Diarrhea, Nausea, Other - discomfort Genitourinary: Negative Musculoskeletal: Myalgia Neurological: Weakness - generalized, Other - Dizziness Psychological: Anxious, Other - agitation Is Patient Immunocompromised?: No All Other Systems Reviewed And Are Negative: Yes Physical Exam - Summary Physical Exam Summary: phyical exam is limited to what could be gathered on initial inspection as pt became increasingly hostile to providers and staff, ultimately leaving the clinic against medical advise before an exam could be done. Triage Information Reviewed: Yes Appearance: Well-Appearing, No Pain Distress, Well-Nourished Vital Signs: Initial Vital Signs Temp 98.7 F 09/21/17 11:02 Pulse 95 09/21/17 11:02 Resp 16 09/21/17 11:02 BP 123/76 09/21/17 11:02 Pulse Ox 99 09/21/17 11:02 Vital Signs Reviewed: Yes Eyes: Positive: Conjunctiva Clear. Negative: Discharge ENT: Positive: Hearing grossly normal. Negative: Muffled voice, Hoarse voice Musculoskeletal Exam: Normal Neurological: Positive: Alert, Muscle Tone Normal Psychological: Positive: Decreased Age Appropriate Behavior, Other: - agitated, hostile, poor insight into her her condition and current tx Skin Exam: Normal Course/Dx - Course Course Of Treatment: pt was hostile as i entered the room. prior to my encounter with her, she had fired 2 nurses. when trying to get a history from pt, i attempted to verify that pt was not actually on insulin, obviously, if she was that would have an affected on our management. it did become clear that the medication that pt was referring to was not actually insulin. however , that inquiry seemed to anger pt at which point she told me that she wanted another doctor. after leaving the room to ask one of the midlevels to see the pt, the pt emerged from the room shouting obscenities and telling us she was going to [place]. pt left before evaluation was complete. - Differential Dx - Multi-Symptom Provider Diagnoses: n/v, dizziness, body aches, uri Discharge - Discharge Plan Condition: Stable Disposition: AGAINST MEDICAL ADVICE Referrals: Marysol Peng MD [Primary Care Provider] - The documentation as recorded by the Lamonte larsen Thomas accurately reflects the service I personally performed and the decisions made by me, Ele Bonnre DO.
== END 2017-09-21 12:29 | disposition left against medical advice (07) ==
LOC: UCEAST 10:54
DX: J06.9 Acute upper respiratory infection, unspecified (principal); R11.2 Nausea with vomiting, unspecified; R42 Dizziness and giddiness; M79.1 Myalgia; R73.03 Prediabetes; E06.3 Autoimmune thyroiditis; G43.909 Migraine, unspecified, not intractable, without status migrainosus; Z88.6 Allergy status to analgesic agent; Z88.1 Allergy status to other antibiotic agents; Z88.5 Allergy status to narcotic agent; Z88.2 Allergy status to sulfonamides; Z88.8 Allergy status to other drugs, medicaments and biological substances; Z87.891 Personal history of nicotine dependence
CPT/HCPCS: 87502; 87651; 99212; G0463

== ENCOUNTER 2017-09-21 13:50 | Emergency (ER) | payer BC ==
[2017-09-21 14:59] LABS: ABS Basophils 0.1 10^3/ul (0-0.2); ABS Eosinophils 0 10^3/ul (0-0.6); ABS Lymphocytes 2.3 10^3/ul (1.0-4.8); ABS Monocytes 0.4 10^3/ul (0-0.8); ABS Neutrophils 7.8 10^3/ul (1.5-7.7); ABS Nucleated RBC 0 10^3/ul; Eosinophil % 0.4 % (0-6); Hematocrit 40 % (35-47); Hemoglobin 13.3 g/dl (12.0-16.0); Lymphocyte % 21.9 % (25-47); Mean Corpuscular HGB Conc 34 g/dl (31-36); Mean Corpuscular Hemoglobin 31 pg (27-31); Mean Corpuscular Volume 91 fL (80-97); Mean Platelet Volume 9 um3 (7.4-10.4); Nucleated Red Blood Cells % 0; Platelet Count 254 10^3/ul (150-450); Red Blood Count 4.37 10^6/ul (4.0-5.4); Red Cell Distribution Width 13 % (10.5-15); White Blood Count 10.7 10^3/ul (3.5-10.8)
[2017-09-21 15:13] LABS: EGFR Non-African American 90.4 (>60)
[2017-09-21] MEDS ORDERED: Ciprofloxacin TAB* 500 MG PO ONE (16:40)
[2017-09-21 16:54] VITALS: BP 00/0
--- NOTE | 2017-09-21 22:29 | ED ---
Throat Pain/Nasal Congestion - HPI Summary HPI Summary: Patient is a 32-year-old female sent here from for multiple complaints. Symptoms include sinus pain, dizziness, nausea, vomiting, and weakness for approx 1 month. Pt says she thinks she might have mono. She is tearful on exam and angry, stating she has gone through 4 courses of Z-Paks given to her by her LOADER TECHNICIAN with no improvement of her sinus pressure. She is allergic to everything except for Z-Michael she states. Her allergy list is 55 medications long and states she is unable to take anything. She is seen by a her primary and an ENT physician who refuses to do surgery. She is angry about the surgeon not willing to provide the surgery and states she needs another antibiotic. She is requesting to be admitted for her diffuse symptoms. - History of Current Complaint Chief Complaint: EDGeneral Time Seen by Provider: 09/21/17 16:13 Hx Obtained From: Patient Onset/Duration: Gradual Onset Severity: Severe Associated Signs And Symptoms: Positive: Negative - Epiglottits Risk Factors Epiglottis Risk Factors: Negative - Allergies/Home Medications Allergies/Adverse Reactions: Allergies Allergy/AdvReac Type Severity Reaction Status Date / Time amitriptyline Allergy Unknown Verified 09/21/17 11:34 Reaction Details amoxicillin Allergy Anaphylatic Verified 09/21/17 11:34 Shock bupropion Allergy Unknown Verified 09/21/17 11:34 Reaction Details butalbital Allergy Unknown Verified 09/21/17 11:34 Reaction Details carisoprodol Allergy Unknown Verified 09/21/17 11:36 Reaction Details cefaclor Allergy Unknown Verified 09/21/17 11:34 Reaction Details cefadroxil Allergy Unknown Verified 09/21/17 11:34 Reaction Details cefdinir Allergy Unknown Verified 09/21/17 11:39 Reaction Details celecoxib Allergy Unknown Verified 09/21/17 11:41 Reaction Details cephalexin Allergy Unknown Verified 09/21/17 11:39 Reaction Details ciprofloxacin Allergy Numbness Verified 09/21/17 11:39 And Tingling clarithromycin Allergy Unknown Verified 09/21/17 11:39 Reaction Details clindamycin Allergy Unknown Verified 09/21/17 11:44 Reaction Details codeine Allergy Unknown Verified 09/21/17 11:44 Reaction Details desogestrel Allergy Unknown Verified 09/21/17 11:44 Reaction Details donepezil Allergy Unknown Verified 09/21/17 11:44 Reaction Details doxycycline Allergy Unknown Verified 09/21/17 11:44 Reaction Details drospirenone Allergy Unknown Verified 09/21/17 11:44 Reaction Details duloxetine [From Cymbalta] Allergy Unknown Verified 09/21/17 11:39 Reaction Details eletriptan Allergy Unknown Verified 09/21/17 11:49 Reaction Details escitalopram Allergy Unknown Verified 09/21/17 11:49 Reaction Details ethinyl estradiol Allergy Unknown Verified 09/21/17 11:34 [From Jolessa] Reaction Details fluoxetine Allergy Unknown Verified 09/21/17 11:49 Reaction Details gabapentin Allergy Hives Verified 09/21/17 11:34 hydrocodone Allergy Unknown Verified 09/21/17 11:49 Reaction Details ibuprofen Allergy Unknown Verified 09/21/17 11:53 Reaction Details lamotrigine [From Lamictal] Allergy Unknown Verified 09/21/17 11:53 Reaction Details levofloxacin [From Levaquin] Allergy Unknown Verified 09/21/17 11:53 Reaction Details levonorgestrel [From Jolessa] Allergy Unknown Verified 09/21/17 11:34 Reaction Details lithium Allergy Unknown Verified 09/21/17 11:53 Reaction Details loratadine Allergy Unknown Verified 09/21/17 11:53 Reaction Details meloxicam Allergy Unknown Verified 09/21/17 11:53 Reaction Details metformin Allergy Unknown Verified 09/21/17 11:53 Reaction Details metoclopramide [From Reglan] Allergy Unknown Verified 09/21/17 11:57 Reaction Details naproxen Allergy Unknown Verified 09/21/17 11:58 Reaction Details norethindrone Allergy Unknown Verified 09/21/17 11:57 [From Necon 0.5/35 (21)] Reaction Details pioglitazone [From Actos] Allergy Unknown Verified 09/21/17 11:57 Reaction Details pregabalin Allergy Anaphylatic Verified 09/21/17 11:34 Shock propranolol Allergy Unknown Verified 09/21/17 11:58 Reaction Details red dye Allergy Unknown Verified 09/21/17 11:57 Reaction Details rizatriptan [From Maxalt] Allergy Unknown Verified 09/21/17 11:57 Reaction Details sertraline [From Zoloft] Allergy Unknown Verified 09/21/17 11:57 Reaction Details Sulfa (Sulfonamide Allergy Hives Verified 09/21/17 11:34 Antibiotics) sulfamethoxazole Allergy Unknown Verified 09/21/17 12:01 [From Bactrim] Reaction Details sumatriptan [From Imitrex] Allergy Unknown Verified 09/21/17 12:01 Reaction Details topiramate [From Topamax] Allergy Unknown Verified 09/21/17 12:01 Reaction Details tramadol Allergy Unknown Verified 09/21/17 12:01 Reaction Details trazodone Allergy Unknown Verified 09/21/17 12:01 Reaction Details trimethoprim [From Bactrim] Allergy Unknown Verified 09/21/17 12:01 Reaction Details venlafaxine [From Effexor] Allergy Unknown Verified 09/21/17 12:01 Reaction Details zolmitriptan [From Zomig] Allergy Unknown Verified 09/21/17 12:02 Reaction Details CI pigment blue Allergy Unknown Uncoded 09/21/17 11:57 Reaction Details sprintec Allergy Unknown Uncoded 06/16/17 13:47 Reaction Details triximet Allergy Unknown Uncoded 09/21/17 11:57 Reaction Details VINYL Allergy problems Uncoded 06/16/17 13:47 with breathing PMH/Surg Hx/FS Hx/Imm Hx Previously Healthy: Yes Endocrine/Hematology History: Reports: Hx Diabetes - pre-diabetic, Hx Thyroid Disease - Hoshimotos Denies: Hx Anticoagulant Therapy Cardiovascular History: Reports: Other Cardiovascular Problems/Disorders - HEART RATE GOES UP WHEN BLOOD SUGAR GETS TOO LOW Denies: Hx Congestive Heart Failure, Hx Deep Vein Thrombosis, Hx Hypertension , Hx Myocardial Infarction, Hx Pacemaker/ICD Respiratory History: Reports: Hx Asthma Denies: Hx Chronic Obstructive Pulmonary Disease (COPD), Hx Lung Cancer, Hx Pneumonia, Hx Pulmonary Embolism GI History: Reports: Hx Gastroesophageal Reflux Disease - ON OCCASION, Hx Hiatal Hernia - HAD SURGERY FOR, Other GI Disorders - GASTRITIS Denies: Hx Gall Bladder Disease, Hx Gastrointestinal Bleed, Hx Ulcer, Hx Urosepsis History: Reports: Other Problems/Disorders - KIDNEY INFECTION Denies: Hx Kidney Stones, Hx Renal Disease Musculoskeletal History: Reports: Hx Tendonitis - HX OF Sensory History: Denies: Hx Contacts or Glasses, Hx Hearing Aid Opthamlomology History: Denies: Hx Contacts or Glasses Neurological History: Reports: Hx Headaches - ROUTINE MEDICATION FOR, Hx Migraine - ROUTINE MEDICATION FOR Denies: Hx Dementia, Hx Seizures, Hx Transient Ischemic Attacks (TIA) Psychiatric History: Reports: Hx Panic Disorder - ANXIETY Denies: Hx Anxiety, Hx Depression, Hx Schizophrenia, Hx Bipolar Disorder - Surgical History Surgery Procedure, Year, and Place: leep procedure 2014, foot operation 2016, fundoplication Hx Anesthesia Reactions: No - Immunization History Date of Tetanus Vaccine: utd - 2009 Date of Influenza Vaccine: none Infectious Disease History: No Infectious Disease History: Denies: Hx Clostridium Difficile, Hx Hepatitis, Hx Human Immunodeficiency Virus (HIV), Hx of Known/Suspected MRSA, Hx Shingles, Hx Tuberculosis, Hx Known/ Suspected VRSA, History Other Infectious Disease, Traveled Outside the [place] in Last 30 Days - Family History Known Family History: Positive: Cardiac Disease, Hypertension - Social History Occupation: Employed Part-time, Student Lives: With Family Alcohol Use: None Hx Substance Use: No Substance Use Type: Reports: None Hx Tobacco Use: No Smoking Status (MU): Former Smoker Amount Used/How Often: 1 PPD X 6 MONTHS Have You Smoked in the Last Year: No Review of Systems Constitutional: Negative Negative: Fever, Chills, Fatigue, Skin Diaphoresis Eyes: Negative Positive: Other - sinus pressure Respiratory: Negative Genitourinary: Negative Positive: no symptoms reported, see HPI Musculoskeletal: Negative Neurological: Negative All Other Systems Reviewed And Are Negative: Yes Physical Exam Triage Information Reviewed: Yes Vital Signs On Initial Exam: Initial Vitals Temp Pulse Resp BP Pulse Ox 99.0 F 85 15 121/78 100 09/21/17 14:02 09/21/17 14:02 09/21/17 14:02 09/21/17 14:02 09/21/17 14:02 Vital Signs Reviewed: Yes Appearance: Positive: Well-Appearing, Well-Nourished Skin: Positive: Warm, Skin Color Reflects Adequate Perfusion Head/Face: Positive: Normal Head/Face Inspection Eyes: Positive: EOMI, SHEREEN, Conjunctiva Clear ENT: Positive: Sinus tenderness. Negative: Pharynx normal, Pharyngeal erythema , Nasal congestion, Nasal drainage, Tonsillar swelling, Tonsillar exudate Neck: Positive: Supple, No Lymphadenopathy Respiratory/Lung Sounds: Positive: Clear to Auscultation, Breath Sounds Present Cardiovascular: Positive: RRR, Pulses are Symmetrical in both Upper and Lower Extremities Musculoskeletal: Positive: Normal, Strength/ROM Intact Neurological: Positive: Speech Normal Psychiatric: Positive: Anxious, Patient Uncooperative for Exam Diagnostics - Vital Signs Vital Signs Temp Pulse Resp BP Pulse Ox 09/21/17 16:52 0 F 0 0 00/0 100 09/21/17 14:02 99.0 F 85 15 121/78 100 - Laboratory Lab Results: Lab Results 09/21/17 09/21/17 09/21/17 Range/Units 14:50 14:50 14:50 WBC 10.7 (3.5-10.8) 10^3/ul RBC 4.37 (4.0-5.4) 10^6/ul Hgb 13.3 (12.0-16.0) g/dl Hct 40 (35-47) % MCV 91 (80-97) fL MCH 31 (27-31) pg MCHC 34 (31-36) g/dl RDW 13 (10.5-15) % Plt Count 254 (150-450) 10^3/ul MPV 9 (7.4-10.4) um3 Neut % (Auto) 73.0 (38-83) % Lymph % (Auto) 21.9 L (25-47) % [place] % (Auto) 3.9 (0-7) % Eos % (Auto) 0.4 (0-6) % Baso % (Auto) 0.8 (0-2) % Absolute Neuts (auto) 7.8 H (1.5-7.7) 10^3/ul Absolute Lymphs (auto) 2.3 (1.0-4.8) 10^3/ul Absolute Monos (auto) 0.4 (0-0.8) 10^3/ul Absolute Eos (auto) 0 (0-0.6) 10^3/ul Absolute Basos (auto) 0.1 (0-0.2) 10^3/ul Absolute Nucleated RBC 0 10^3/ul Nucleated RBC % 0 Sodium 132 L (133-145) mmol/L Potassium 3.7 (3.5-5.0) mmol/L Chloride 99 L (101-111) mmol/L Carbon Dioxide 27 (22-32) mmol/L Anion Gap 6 (2-11) mmol/L BUN 16 (6-24) mg/dL Creatinine 0.74 (0.51-0.95) mg/dL Est GFR ( Amer) 116.2 (>60) Est GFR (Non-Af Amer) 90.4 (>60) BUN/Creatinine Ratio 21.6 H (8-20) Glucose 111 H (70-100) mg/dL Lactic Acid 1.1 (0.5-2.0) mmol/L Calcium 9.4 (8.6-10.3) mg/dL Total Bilirubin 0.20 (0.2-1.0) mg/dL AST 17 (13-39) U/L ALT 17 (7-52) U/L Alkaline Phosphatase 59 (34-104) U/L C-Reactive Protein 2.59 (< 5.00) mg/L Total Protein 7.0 (6.4-8.9) g/dL Albumin 3.9 (3.2-5.2) g/dL Globulin 3.1 (2-4) g/dL Albumin/Globulin Ratio 1.3 (1-3) Monoscreen Negative (Negative) Result Diagrams: 09/21/17 14:50 09/21/17 14:50 Lab Statement: Any lab studies that have been ordered have been reviewed, and results considered in the medical decision making process. EENT Course/Dx - Course Course Of Treatment: During the course of treatment, I have discussed at length with the patient that she will need to change her antibiotic she would like to feel improvement. Likely all of her symptoms are stemming from a fourth course in a row of the azithromycin lasting 1 month. I have encouraged she take doxycycline or Levaquin. She states she is allergic to both, but has taken Cipro in the past without issues. Again, she states she would like to be admitted. I discussed with her that we will not admit based on her allergies and medications to ride her the medication she would like which is IV medications. I have advised she speak with one of our ENT surgeons as per surgeon refuses to do a treatment. She states she is seen 6 doctors for this and all of them think it's psych related. I am agreeing with this diagnosis. However, I am agreeing to the patient to switch her antibiotic and give her an ENT follow-up but have made it clear that I am not sure she is having a true sinus infection. There is pressure and pain with palpation of the maxillary sinuses and frontal sinuses but she is also tearful and angry and stating she has diffuse pain at 10 out of 10. I believe a lot of this is psychosomatic and I have discussed with her a psych evaluation. She denies any suicidal or homicidal ideations and is declining everything except antibiotics. Have also offered her Flonase, nasal rinses encouraged warm packs. She gets angry at the suggestions stating she has used them all. I have given her a prescription for Cipro 7 days and she will follow up with ENT this week. - Diagnoses Provider Diagnoses: Sinusitis Discharge - Discharge Plan Condition: Stable Disposition: HOME Prescriptions: Ciprofloxacin TAB* [Cipro 500 MG TAB*] 500 mg PO BID #14 tab predniSONE TAB* [Deltasone TAB*] 50 mg PO DAILY #5 tab MDD 1 Patient Education Materials: Sinusitis (ED), Warm Compress or Soak (ED) Forms: *Work Release Referrals: Jeffery Patel MD [Medical Doctor] - Marysol Peng MD [Primary Care Provider] - Additional Instructions: Follow up with Dr. Patel
== END 2017-09-21 16:52 | disposition home or self-care (01) ==
LOC: ED 13:50
DX: J32.9 Chronic sinusitis, unspecified (principal); Z87.891 Personal history of nicotine dependence; R73.03 Prediabetes; K21.9 Gastro-esophageal reflux disease without esophagitis; F41.9 Anxiety disorder, unspecified; G43.909 Migraine, unspecified, not intractable, without status migrainosus
CPT/HCPCS: 36415; 80053; 83605; 85025; 86140; 86308; 99282; A9270-GY

== ENCOUNTER 2018-11-21 16:21 | Emergency (ER) | payer BC ==
--- OUTSIDE RECORDS SUMMARY | 2018-11-21 16:34 | XMS REPORT | Continuity of Care Document ---
:1985 External Reference #:[id number] Author Name MALINA Self Address [address] [place] [address] Care Team Providers Name Role Phone Cristin Choi M.D. Care Team Information Assembler Cards And Announcements Unavailable Annetta Johnson DO. Primary Care Physician Unavailable Payers Date Identification Numbers Payment Provider Subscriber Effective: 2016 Policy Number: [id number] / Of [facility] Shannan Paula Group Name: [employer] [address] [address] PayID: [id number] [place] [address] Advance Directives Description No Information Available Problems Date Description Provider Status Onset: 06/24/2017 Chronic rhinitis Sherry Peters M.D. Active Onset: 06/24/2017 Ingestion dermatitis due to food Sherry Peters M.D. Active Onset: 06/24/2017 Mild persistent asthma Sherry Peters M.D. Active Onset: 06/24/2017 Toxic effect of venom of bees, Sherry Peters M.D. Active accidental (unintentional), subsequent encounter Onset: 03/31/2018 Allergic rhinitis due to pollen Sherry Peters M.D. Active Onset: 03/31/2018 Allergic rhinitis Sherry Peters M.D. Active Onset: 03/31/2018 Uncomplicated moderate persistent Sherry Peters M.D. 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 Home Environment Has central air Home Environment Stairs are present Home Environment There is no basement Home Environment Cotton Comforter Home Environment Mattress is not encased in an allergy proof case Home Environment Regular Mattress Home Environment Pillows are not encased in an allergy proof case Home Environment Pillows are polyester Home Environment Does not use a dehumidifier Home Environment There are no draperies in the home Home Environment The home is not shakila Home Environment The floors are carpeted Home Environment Uses baseboard heating Home Environment Water Source: [facility] Home Environment Lives in a newer 2nd floor apartment [facility] Smoke-Free Home is smoke-free Smoke-Free Work is smoke-free Pets 2 cats Pets Animals sleep in bedroom 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 - [employer] ETOH Use Denies alcohol use Tobacco Use Start: Unknown End: Patient is a former quit in 2008 Unknown smoker Recreational Drug Use Denies Drug Use Allergies, Adverse Reactions, Alerts Date Description Reaction Status Severity Comments 11/28/2008 Amoxicillin Active 11/28/2008 Cephalexin Active 06/26/2017 Sulfa Antibiotics Hives Active 06/26/2017 Gabapentin Active 06/26/2017 Codeine Active 06/26/2017 Tramadol Active 06/26/2017 Vicodin Active 06/26/2017 Ibuprofen Difficulty breathing Active 06/26/2017 Xanax Active 06/26/2017 Doxycycline Active 06/26/2017 Bactrim Active 06/26/2017 Clarithromycin Active 06/26/2017 Butabarbital Active 06/26/2017 Carisoprodol Active 06/26/2017 Cefadroxil Active 06/26/2017 Cefdinir Active 06/26/2017 Clindamycin Active 06/26/2017 Elavil Active 06/26/2017 Metformin Active generic only 06/26/2017 Topamax Active 06/26/2017 Trazodone Active 06/26/2017 Imitrex Active 06/26/2017 Zoloft Active 06/26/2017 Zomig Active 06/26/2017 Eggs Nausea and Vomiting Active 06/26/2017 Metoclopramide Active 06/26/2017 Tegaderm Active 06/26/2017 Estradiol / Estriol / Active Norethindrone 06/26/2017 Propranolol Active 06/26/2017 Singulair Active 06/26/2017 peanut butter vomiting Active Medications Medication Date Status Form Strength Qnty SIG Indications Ordering Provider Symbicort 06/05/ Active Aerosol 80-4.5mcg/ 10.200 2 puffs Sherry M 2018 Act gm inhalation Fran, twice a day Vickie Ventolin HFA 12/23/ Active Aerosol 108(90Base 18gm 2 puffs Paty 2017 ) mcg/Act every 4 [place], hours as 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 OFFICER-C needed for cough, shortness of breath or chest tighntess Verapamil HCL / Active Tablets 80mg once a day Unknown 0000 Glumetza / Active Tablets ER 500mg once a day Unknown 0000 24HR Pantoprazole / Active Tablets DR 40mg Unknown Sodium 0000 Epipen 2-Michael / Active Solution 0.3mg/0.3M 2units use as Paty 0000 Auto-Injec L directed Uldrich, t 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 OFFICER-C Ranitidine HCL / Active Tablets 300mg Mestad, 0000 MD Italo Azelastine HCL / Active Solution 0.15% instill 2 Unknown (Nasal) 0000 sprays into each nostril twice a day Apri / Active Tablets 0.15-30mg- Unknown 0000 mcg Qnasl / Active Aerosol 80mcg/Act 1-2 sprays Unknown 0000 in each nostril daily Zyrtec Allergy / Active Tablets 10mg 1 every day Unknown 0000 Spiriva / Active Aerosol 1.25mcg/Ac 1units 2 puffs Sherry M Respimat 0000 t once daily Vickie Peters Azithromycin / Active Tablets 250mg Unknown 0000 Prednisone / Active Tablets 10mg Unknown 0000 Immunizations CPT Code Status Date Vaccine Lot # [id number] Given Unknown Influenza Vaccine 01459 Given Unknown Influenza Vaccine 29846 Given Unknown Influenza Vaccine Vital Signs Date Vital Result Comment 10/26/2018 10:05am Height 66.5 inches 5'6.50" Weight 174.00 lb Weight 78.926 kg Respiratory Rate 20 /min Heart Rate 76 /min O2 % BldC Oximetry 97 % BP Systolic 104 mmHg BP Diastolic 69 mmHg Asthma Control Test 10 Fractional Exhaled Nitric Oxide 15 BMI (Body Mass Index) 27.7 kg/m2 10/06/2018 8:44am Height 66.5 inches 5'6.50" Weight 161.00 lb Weight 73.030 kg Respiratory Rate 16 /min Heart Rate 98 /min O2 % BldC Oximetry 99 % BP Systolic 104 mmHg BP Diastolic 65 mmHg Asthma Control Test 10 BMI (Body Mass Index) 25.6 kg/m2 09/24/2018 2:15pm Height 66.5 inches 5'6.50" Weight 164.00 lb Per patient Weight 74.390 kg Respiratory Rate 18 /min Heart Rate 93 /min Body Temperature 98.8 F O2 % BldC Oximetry 99 % BP Systolic 106 mmHg BP Diastolic 62 mmHg Asthma Control Test 7 BMI (Body Mass Index) 26.1 kg/m2 06/23/2018 8:47am Height 66.5 inches 5'6.50" Weight 168.00 lb Weight 76.205 kg Respiratory Rate 18 /min Heart Rate 80 /min Body Temperature 96.5 F O2 % BldC Oximetry 99 % BP Systolic 109 mmHg BP Diastolic 74 mmHg Asthma Control Test 24 BMI (Body Mass Index) 26.7 kg/m2 05/27/2018 1:45pm Height 66.5 inches 5'6.50" Weight 168.00 lb Weight 76.205 kg Respiratory Rate 16 /min Heart Rate 70 /min Body Temperature 98.4 F O2 % BldC Oximetry 98 % BP Systolic 123 mmHg BP Diastolic 68 mmHg BMI (Body Mass Index) 26.7 kg/m2 03/31/2018 11:11am Height 66.5 inches 5'6.50" Weight 164.00 lb patient stated Weight 74.390 kg Respiratory Rate 16 /min Heart Rate 95 /min O2 % BldC Oximetry 99 % BP Systolic 103 mmHg BP Diastolic 66 mmHg Asthma Control Test 11 BMI (Body Mass Index) 26.1 kg/m2 01/27/2018 2:19pm Height 66.5 inches 5'6.50" Weight 155.00 lb refused weight. Weight 70.308 kg Respiratory Rate 18 /min Heart Rate 84 /min O2 % BldC Oximetry 97 % BP Systolic 94 mmHg BP Diastolic 63 mmHg Asthma Control Test 19 BMI (Body Mass Index) 24.6 kg/m2 12/23/2017 11:32am Height 66.5 inches 5'6.50" Weight 161.00 lb Weight 73.030 kg Respiratory Rate 12 /min Heart Rate 97 /min O2 % BldC Oximetry 98 % BP Systolic 102 mmHg BP Diastolic 70 mmHg BMI (Body Mass Index) 25.6 kg/m2 06/24/2017 8:56am Height 66.5 inches 5'6.50" Weight 145.00 lb Weight 65.772 kg Respiratory Rate 18 /min Heart Rate 75 /min O2 % BldC Oximetry 97 % BP Systolic 102 mmHg BP Diastolic 62 mmHg BMI (Body Mass Index) 23.1 kg/m2 Results Test Date Facility Test Result H/L Range Note Laboratory test 06/27/2017 [facility] Cat Epithelium <0.35 kU/L [address] [address] [phone] Dog Dander Allergen IgE <0.35 kU/L 2 Dermatophagoides farinae IgE <0.35 kU/L 3 Dermatophagoides pteronyssinus <0.35 kU/L 4 Silver Birch IgE <0.35 kU/L 5 Bullard Allergen IgE <0.35 kU/L 6 [place] Maple IgE <0.35 kU/L 7 White Hiren Allergen IgE <0.35 kU/L 8 [place] Allergen IgE <0.35 kU/L 9 Nye Tree Allergen IgE <0.35 kU/L 10 Andrew Grass Allergen IgE <0.35 kU/L 11 Orchard Grass Allergen IgE <0.35 kU/L 12 Common Ragweed (Short) Allerge <0.35 kU/L 13 Fagan Elder Allergen IgE <0.35 kU/L 14 Rough Pigweed Allergen IgE <0.35 kU/L 15 Cocklebur Allergen IgE <0.35 kU/L 16 Alternaria tenuis IgE Allergen <0.35 kU/L 17 Aspergillus Fumigatus IgE <0.35 kU/L 18 Rast Shrimp <0.35 kU/L 19 Rast Lobster <0.35 kU/L 20 Rast Crab <0.35 kU/L 21 Rast White Face Hornet <0.35 kU/L 22 Rast Yellow Hornet <0.35 kU/L 23 Rast Yellow Jacket <0.35 kU/L 24 Rast Paperwasp Venom <0.35 kU/L 25 Rast Honeybee Venom <0.35 kU/L 26 Tryptase 4.1 ng/mL <11.5 27 Serbian Plantain Allergen IgE <0.35 kU/L 28 Siddiqui's Quarter Allergen IgE <0.35 kU/L 29 1 Class 0 (Negative <0.35) Test Performed by: [place] [address] 2 Class 0 (Negative <0.35) Test Performed by: [place] [address] 3 Class 0 (Negative <0.35) Test Performed by: [place] [address] 4 Class 0 (Negative <0.35) Test Performed by: [place] [address] 5 Class 0 (Negative <0.35) Test Performed by: [place] [address] 6 Class 0 (Negative <0.35) Test Performed by: [place] [address] 7 Class 0 (Negative <0.35) Test Performed by: [place] [address] 8 Class 0 (Negative <0.35) Test Performed by: [place] [address] 9 Class 0 (Negative <0.35) Test Performed by: [place] [address] 10 Class 0 (Negative <0.35) Test Performed by: [place] [address] 11 Class 0 (Negative <0.35) Test Performed by: [place] [address] 12 Class 0 (Negative <0.35) Test Performed by: [place] [address] 13 Class 0 (Negative <0.35) Test Performed by: [place] [address] 14 Class 0 (Negative <0.35) Test Performed by: [place] [address] 15 Class 0 (Negative <0.35) Test Performed by: [place] [address] 16 Class 0 (Negative <0.35) Test Performed by: [place] [address] 17 Class 0 (Negative <0.35) Test Performed by: [place] [address] 18 Class 0 (Negative <0.35) Test Performed by: [place] [address] 19 Class 0 (Negative <0.35) Test Performed by: [place] [address] 20 Class 0 (Negative <0.35) Test Performed by: [place] [address] 21 Class 0 (Negative <0.35) Test Performed by: [place] [address] 22 Class 0 (Negative <0.35) Test Performed by: [place] [address] 23 Class 0 (Negative <0.35) Test Performed by: [place] [address] 24 Class 0 (Negative <0.35) Test Performed by: [place] [address] 25 Class 0 (Negative <0.35) Test Performed by: [place] [address] 26 Class 0 (Negative <0.35) Test Performed by: [place] [address] 27 Test Performed by: [facility] [place] [address] [place] [address] 28 Class 0 (Negative <0.35) Test Performed by: [place] [address] 29 Class 0 (Negative <0.35) Test Performed by: [place] [address] Procedures Date Code Description Status 10/26/2018 10720 Nitric Oxide Gas Determination Completed 01/27/2018 75728 Skin Test Scratch # Of Units ____ Completed 01/27/2018 07650 Skin Test Scratch # Of Units ____ Completed 12/23/2017 44984 Pre PFT Completed 06/24/2017 59342 Pulmonary Function Test Completed 11/28/2008 24062 Pulmonary Function Test Completed Encounters Type Date Location Provider Dx Diagnosis Office Visit 10/26/2018 [place] Paty Cordero, J45.40 Moderate persistent 10:00a 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 OFFICER-C asthma, uncomplicated J30.1 Allergic rhinitis due to pollen J31.0 Chronic rhinitis J30.89 Other allergic rhinitis Office Visit 10/06/2018 8:40a [facility] Sherry Armstrong J30.89 Other allergic Vickie Peters rhinitis J45.40 Moderate persistent asthma, uncomplicated L27.2 Dermatitis due to ingested food Office Visit 09/24/2018 2:20p [place] Paty Cordero, J30.89 Other allergic 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 OFFICER-C rhinitis J45.40 Moderate persistent asthma, uncomplicated J30.1 Allergic rhinitis due to pollen Office Visit 06/23/2018 8:40a [place] [facility] Sherry Armstrong J31.0 Chronic Vickie Peters rhinitis J30.89 Other allergic rhinitis J45.40 Moderate persistent asthma, uncomplicated J30.1 Allergic rhinitis due to pollen L27.2 Dermatitis due to ingested food Office Visit 05/27/2018 1:40p [facility] Paty Cordero, J31.0 Chronic rhinitis 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 OFFICER-C J30.89 Other allergic rhinitis J45.40 Moderate persistent asthma, uncomplicated Office Visit 03/31/2018 11:00a [facility] Sherry Armstrong J31.0 Chronic Vickie Peters rhinitis J30.1 Allergic rhinitis due to pollen J30.89 Other allergic rhinitis L27.2 Dermatitis due to ingested food J45.40 Moderate persistent asthma, uncomplicated J06.9 Acute upper respiratory infection, unspecified Office Visit 01/27/2018 2:40p [facility] Paty Cordero J31.0 Chronic rhinitis 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 OFFICER-C L27.2 Dermatitis due to ingested food J30.1 Allergic rhinitis due to pollen J30.89 Other allergic rhinitis Office Visit 12/23/2017 11:20a [facility] Sherry Armstrong J31.0 Chronic Vickie Peters rhinitis L27.2 Dermatitis due to ingested food J45.30 Mild persistent asthma, uncomplicated T63.441D Toxic effect of venom of bees, accidental, subs Office Visit 06/24/2017 9:00a [facility] Sherry Armstrong J31.0 Chronic Vickie Peters rhinitis L27.2 Dermatitis due to ingested food J45.30 Mild persistent asthma, uncomplicated T63.441D Toxic effect of venom of bees, accidental, subs Office Visit 11/28/2008 10:15a Leonie Soriano MD 472.0 Rhinitis Chronic 693.1 Dermatitis Due To Food 995.1 Edema Angioneurotic Not Elsewhere Class 493.90 Asthma Unspec W/O Status Asthmaticus Plan of Treatment Future Appointment(s):01/15/2019 3:00 pm - Sherry Peters M.D. at [id number] 11:00 am - [facility] - SILVIA Self-CJ45.40 Moderate persistent asthma, abyzfouyzzxubH14.1 Allergic rhinitis due to vunacuO02.0 Chronic hehbcgzzO79.89 Other allergic rhinitisRecommendations:Continue all medications as prescribed.Refrain from wearing perfumes/scented colognes while visitingour office. Your lungs were clear to the bases, no pneumonia Continue the Spiriva 2 puffs daily Continue the Qnasl 2 puffs twice a day Continue the Symbicort 2 puffs twice a day Continue the Azelestine 2 spray daily Continue the Ventolin 2 puffs every 4 hours as needed for cough, shortness of breath, chest congestion or wheezing.Monitor Albuterol use. If using more than 2x/week, please call the office as your asthma medications may need to be adjusted. Continue the Zyrtec 1 daily
--- OUTSIDE RECORDS SUMMARY | 2018-11-21 16:34 | XMS REPORT | Continuity of Care Document ---
:1985 External Reference #:[id number] Author Name Sherry Peters M.D. Address [address] [place] [address] Care Team Providers Name Role Phone Cristin Choi M.D. Care Team Information Psych Specialist Unavailable Annetta Johnson DO. Primary Care Physician Unavailable Payers Date Identification Numbers Payment Provider Subscriber Effective: 2016 Policy Number: [id number] /BS Of CN Shannan Paula Group Name: [employer] [address] [address] PayID: [id number] [place] [address] Advance Directives Description No Information Available Problems Active Problems Provider Date Chronic rhinitis Sherry Peters M.D. Onset: 06/24/2017 Ingestion dermatitis due to food Sherry Peters M.D. Onset: 06/24/2017 Mild persistent asthma Sherry Peters M.D. Onset: 06/24/2017 Toxic effect of venom of bees, accidental Sherry Peters M.D. Onset: 11/2016 (unintentional), subsequent encounter Allergic rhinitis due to pollen Sherry Peters M.D. Onset: 03/31/2018 Allergic rhinitis Sherry Peters M.D. Onset: 03/31/2018 Uncomplicated moderate persistent asthma Sherry Peters M.D. 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[employer] ETOH Use Denies alcohol use Tobacco Use Start: Unknown End: Patient is a former quit in 2008 Unknown smoker Recreational Drug Use Denies Drug Use Allergies, Adverse Reactions, Alerts Active Allergies Reaction Severity Comments Date Amoxicillin 11/28/2008 Cephalexin 11/28/2008 Sulfa Antibiotics Hives 06/26/2017 Gabapentin 06/26/2017 Codeine 06/26/2017 Tramadol 06/26/2017 Vicodin 06/26/2017 Ibuprofen Difficulty breathing 06/26/2017 Xanax 06/26/2017 Doxycycline 06/26/2017 Bactrim 06/26/2017 Clarithromycin 06/26/2017 Butabarbital 06/26/2017 Carisoprodol 06/26/2017 Cefadroxil 06/26/2017 Cefdinir 06/26/2017 Clindamycin 06/26/2017 Elavil 06/26/2017 Metformin generic only 06/26/2017 Topamax 06/26/2017 Trazodone 06/26/2017 Imitrex 06/26/2017 Zoloft 06/26/2017 Zomig 06/26/2017 Eggs Nausea and Vomiting 06/26/2017 Metoclopramide 06/26/2017 Tegaderm 06/26/2017 Estradiol / Estriol / 06/26/2017 Norethindrone Propranolol 06/26/2017 Singulair 06/26/2017 peanut butter vomiting 06/26/2017 Medications Active Medications SIG Qnty Indications Ordering Date Provider Symbicort 2 puffs 10.200gm Sherry M 12/23/2017 80-4.5mcg/Act inhalation twice Vickie Peters Aerosol a day Ventolin HFA 2 puffs every 4 18gm Paty 12/23/2017 hours as needed MALINA Cordero 108(90Base) mcg/Act for cough, Aerosol shortness of breath or chest tighntess Verapamil HCL once a day Unknown 80mg Tablets Glumetza once a day Unknown 500mg Tablets ER 24HR Pantoprazole Sodium Unknown 40mg Tablets DR Hassan 2-Michael use as directed 2units Paty MALINA Cordero 0.3mg/0.3ML Solution Auto-Inject Ranitidine HCL Mestad, Italo, 300mg MD Tablets Azelastine HCL instill 2 sprays 30ml Lisa (Nasal) into each nostril LOTTIE Davila-C 0.15% Solution twice a day Apri Unknown 0.15-30mg-mcg Tablets Qnasl 1-2 sprays in 10.600gm Lisa 80mcg/Act Aerosol each nostril GiovanniRPA-C daily Zyrtec Allergy 1 every day Unknown 10mg Tablets Spiriva Respimat 2 puffs once 1units Lisa daily LOTTIE Davila-C 1.25mcg/Act Aerosol Prednisone Unknown 10mg Tablets Ciprofloxacin HCL Unknown 500mg Tablets Immunizations CPT Code Status Date Vaccine Lot # [id number] Given Unknown Pneumococcal Vaccine 80052 Given Unknown Influenza Vaccine 67447 Given Unknown Influenza Vaccine 05007 Given Unknown Influenza Vaccine 05796 Given Unknown Influenza Vaccine Vital Signs Date Vital Result Comment 11/10/2018 11:09am Height 66.5 inches 5'6.50" Weight 171.00 lb Weight 77.566 kg Respiratory Rate 20 /min Heart Rate 95 /min O2 % BldC Oximetry 98 % BP Systolic 109 mmHg BP Diastolic 77 mmHg Asthma Control Test 10 Fractional Exhaled Nitric Oxide 18 BMI (Body Mass Index) 27.2 kg/m2 10/26/2018 10:05am Height 66.5 inches 5'6.50" Weight [...] Result H/L Range Note Laboratory test 06/27/2017 [facility] Cat Epithelium <0.35 kU/L [address] [place] [address] [phone] Dog Dander Allergen IgE <0.35 kU/L 2 Dermatophagoides farinae IgE <0.35 kU/L 3 Dermatophagoides pteronyssinus <0.35 kU/L 4 Silver Birch IgE <0.35 kU/L 5 [place] Allergen IgE <0.35 kU/L 6 [place] Maple IgE <0.35 kU/L 7 White Hiren Allergen IgE <0.35 kU/L 8 [place] Allergen IgE <0.35 kU/L 9 [place] Allergen IgE <0.35 kU/L 10 Andrew [...] kU/L 26 Tryptase 4.1 ng/mL <11.5 27 [place] Plantain Allergen IgE <0.35 kU/L 28 Siddiqui's Quarter Allergen IgE <0.35 kU/L 29 1 Class 0 (Negative <0.35) Test Performed by: [facility] [place] [address] 2 Class 0 (Negative <0.35) Test Performed by: [place] [address] 3 Class 0 (Negative <0.35) Test Performed by: [facility] [address] [place] [address] [place] [address] 4 Class 0 (Negative <0.35) Test Performed by: [place] [address] 5 Class 0 (Negative <0.35) Test Performed by: [place] [address] 6 Class 0 (Negative <0.35) Test Performed by: [place] [address] 7 Class 0 (Negative <0.35) Test Performed by: [facility] [address] [place] [address] 8 Class 0 (Negative <0.35) Test Performed by: [facility] [address] [place] [address] 9 Class 0 (Negative <0.35) Test Performed by: [place] [address] 10 Class 0 (Negative <0.35) Test Performed by: [facility] [address] [place] [address] 11 Class 0 (Negative <0.35) Test Performed by: [facility] [address] [place] [address] 12 Class 0 (Negative <0.35) Test Performed by: [facility] [address] [place] [address] 13 Class 0 (Negative <0.35) Test Performed by: [facility] [address] [place] [address] 14 Class 0 (Negative <0.35) Test Performed by: [place] [address] 15 Class 0 (Negative <0.35) Test Performed by: [place] [address] 16 Class 0 (Negative <0.35) Test Performed by: [place] [address] 17 Class 0 (Negative <0.35) Test Performed by: [place] [address] 18 Class 0 (Negative <0.35) Test Performed by: [place] [address] 19 Class 0 (Negative <0.35) Test Performed by: [place] [address] 20 Class 0 (Negative <0.35) Test Performed by: [place] [address] 21 Class 0 (Negative <0.35) Test Performed by: [place] [address] 22 Class 0 (Negative <0.35) Test Performed by: [place] [address] 23 Class 0 (Negative <0.35) Test Performed by: [place] [address] 24 Class 0 (Negative <0.35) Test Performed by: [place] [address] 25 Class 0 (Negative <0.35) Test Performed by: [address] [address] 26 Class 0 (Negative <0.35) Test Performed by: [address] [address] 27 Test Performed by: [facility] [address] [place] [address] 28 Class 0 (Negative <0.35) Test Performed by: [address] [address] 29 Class 0 (Negative <0.35) Test Performed by: [address] [address] Procedures Date Code Description Status 11/10/2018 58763 Nitric Oxide Gas Determination Completed 11/10/2018 49239 Pre PFT Completed 10/26/2018 57726 Nitric Oxide Gas Determination Completed 01/27/2018 25917 Skin Test Scratch # Of Units ____ Completed 01/27/2018 46862 Skin Test Scratch # Of Units ____ Completed 12/23/2017 53263 Pre PFT Completed 06/24/2017 21128 Pulmonary Function Test Completed 11/28/2008 15574 Pulmonary Function Test Completed Encounters Type Date Location Provider Dx Diagnosis Office Visit 11/10/2018 [facility] Paty Cordero J45.40 Moderate persistent 11:00a SPOOL CLEANER HAND-C asthma, uncomplicated J30.1 Allergic rhinitis due to pollen J30.89 Other allergic rhinitis Office Visit 10/26/2018 10:00a [place] Paty Cordero J45.40 Moderate persistent SPOOL CLEANER HAND-C asthma, uncomplicated J30.1 Allergic rhinitis due to pollen J31.0 Chronic rhinitis J30.89 Other allergic rhinitis Office Visit 10/06/2018 8:40a [facility] Sherry Armstrong J30.89 Other allergic Vickie Peters rhinitis J45.40 Moderate persistent asthma, uncomplicated L27.2 Dermatitis due to ingested food Office Visit 09/24/2018 2:20p [place] Paty Cordero J30.89 Other allergic SPOOL CLEANER HAND-C rhinitis J45.40 Moderate persistent asthma, uncomplicated J30.1 Allergic rhinitis due to pollen Office Visit 06/23/2018 8:40a [facility] Sherry Armstrong J31.0 Chronic Vickie Peters rhinitis J30.89 Other allergic rhinitis J45.40 Moderate persistent asthma, uncomplicated J30.1 Allergic rhinitis due to pollen L27.2 Dermatitis due to ingested food Office Visit 05/27/2018 1:40p [facility] Paty Cordero J31.0 Chronic rhinitis SPOOL CLEANER HAND-C J30.89 Other allergic rhinitis J45.40 Moderate persistent asthma, uncomplicated Office Visit 03/31/2018 11:00a [facility] Sherry Armstrong J31.0 Leobardo Peters M.D. rhinitis J30.1 Allergic rhinitis due to pollen J30.89 Other allergic rhinitis L27.2 Dermatitis due to ingested food J45.40 Moderate persistent asthma, uncomplicated J06.9 Acute upper respiratory infection, unspecified Office Visit 01/27/2018 2:40p [facility] Paty Uldrich, J31.0 Chronic rhinitis SPOOL CLEANER HAND-C L27.2 Dermatitis due to ingested food J30.1 Allergic rhinitis due to pollen J30.89 Other allergic rhinitis Office Visit 12/23/2017 11:20a [place] [facility] Sherry Murphy31.0 Chronic Vickie Peters rhinitis L27.2 Dermatitis due to ingested food J45.30 Mild persistent asthma, uncomplicated T63.441D Toxic effect of venom of bees, accidental, subs Office Visit 06/24/2017 9:00a [place] [facility] Sherry Armstrong J31.0 Leobardo Peters M.D. rhinitis L27.2 Dermatitis due to ingested food J45.30 Mild persistent asthma, uncomplicated T63.441D Toxic effect of venom of bees, accidental, subs Office Visit 11/28/2008 10:15a [place] Meri Soriano MD 472.0 Rhinitis Chronic 693.1 Dermatitis Due To Food 995.1 Edema Angioneurotic Not Elsewhere Class 493.90 Asthma Unspec W/O Status Asthmaticus Plan of Treatment Future Appointment(s):01/15/2019 3:00 pm - Sherry Peters M.D. at [id number] - Paty Cordero, SPOOL CLEANER HAND-CJ45.40 Moderate persistent asthma, tfwbtlmokshzbD02.1 Allergic rhinitis due to olnbmyL76.89 Other allergic rhinitisNew Labs:Amoxicillin Rast Class Ige, Ordered: 11/10/18Recommendations: Continue all medications as prescribed.Refrain from wearing perfumes/scented colognes while visitingour office. Get the lab done Continue the Spiriva 2 puffs daily, may stop the medication and see if it makes a difference. Continue the Qnasl 2 puffs twice a [...]
--- OUTSIDE RECORDS SUMMARY | 2018-11-21 16:34 | XMS REPORT | Continuity of Care Document ---
:1985 External Reference #:[id number] Author Name Rodolfo Herron M.D. Address [address] [place] [address] Care Team Providers Name Role Phone Cristin Choi M.D. 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 Home Environment Has central air Home Environment [...] Uses baseboard heating Home Environment Water Source: [facility] Home Environment Lives in a newer 2nd floor apartment [facility] Smoke-Free Home is smoke-free Smoke-Free Work is smoke-free Pets 2 cats Pets Animals sleep in bedroom 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[employer] ETOH Use Denies alcohol use [...] Strength Qnty SIG Indications Ordering Provider Symbicort 12/23/ Active Aerosol 80-4.5mcg/ 10.200 2 puffs Sherry M 2018 Act gm inhalation Fran, twice a day Vickie Ventolin HFA 12/23/ Active Aerosol 108(90Base 18gm 2 puffs Paty 2017 ) mcg/Act every 4 [place], hours as LOGGING ASSISTANT-C needed for cough, shortness of breath or chest tighntess Verapamil HCL / Active Tablets 80mg once a day Unknown 0000 Glumetza / Active Tablets ER 500mg once a day Unknown 0000 24HR Pantoprazole / Active Tablets DR 40mg Unknown Sodium 0000 Epipen 2-Michael / Active Solution 0.3mg/0.3M 2units use as Paty 0000 Auto-Injec L directed Uldrich, t LOGGING ASSISTANT-C Ranitidine HCL / Active Tablets 300mg Mestad, [...] CPT Code Status Date Vaccine Lot # [id number] Given Unknown Influenza Vaccine 06568 Given Unknown Influenza Vaccine 17742 Given Unknown Influenza Vaccine Vital Signs Date [...] Result H/L Range Note Laboratory test 06/27/[address] [facility] Cat Epithelium <0.35 kU/L [address] [place] [address] [phone] Dog Dander Allergen IgE <0.35 kU/L 2 Dermatophagoides farinae IgE <0.35 kU/L 3 Dermatophagoides pteronyssinus <0.35 kU/L 4 [place] IgE <0.35 kU/L 5 [place] Allergen IgE <0.35 kU/L 6 [place] Maple IgE <0.35 kU/L 7 [place] Allergen IgE <0.35 kU/L 8 [place] Allergen IgE <0.35 kU/L 9 [place] Allergen IgE <0.35 kU/L 10 Andrew [...] kU/L 26 Tryptase 4.1 ng/mL <11.5 27 [place] Plantain Allergen IgE <0.35 kU/L 28 Siddiqui's Quarter Allergen IgE <0.35 kU/L 29 1 Class 0 (Negative <0.35) Test Performed by: [place] [address] 2 Class 0 (Negative <0.35) Test Performed by: [place] [address] 3 Class 0 (Negative <0.35) Test Performed by: [place] [address] 4 Class 0 (Negative <0.35) Test Performed by: [place] [address] 5 Class 0 (Negative <0.35) Test Performed by: [place] [address] 6 Class 0 (Negative <0.35) Test Performed by: [place] [address] 7 Class 0 (Negative <0.35) Test Performed by: [place] [address] 8 Class 0 (Negative <0.35) Test Performed by: [place] [address] 9 Class 0 (Negative <0.35) Test Performed by: [place] [address] 10 Class 0 (Negative <0.35) Test Performed by: [place] [address] 11 Class 0 (Negative <0.35) Test Performed by: [place] [address] 12 Class 0 (Negative <0.35) Test Performed by: [place] [address] 13 Class 0 (Negative <0.35) Test Performed by: [place] [address] 14 Class 0 (Negative <0.35) Test Performed by: [place] [address] 15 Class 0 (Negative <0.35) Test Performed by: [place] [address] 16 Class 0 (Negative <0.35) Test Performed by: [place] [address] 17 Class 0 (Negative <0.35) Test Performed by: [place] [address] 18 Class 0 (Negative <0.35) Test Performed by: [place] [address] 19 Class 0 (Negative <0.35) Test Performed by: [place] [address] 20 Class 0 (Negative <0.35) Test Performed by: [place] [address] 21 Class 0 (Negative <0.35) Test Performed by: [place] [address] 22 Class 0 (Negative <0.35) Test Performed by: [place] [address] 23 Class 0 (Negative <0.35) Test Performed by: [place] [address] 24 Class 0 (Negative <0.35) Test Performed by: [place] [address] 25 Class 0 (Negative <0.35) Test Performed by: [place] [address] 26 Class 0 (Negative <0.35) Test Performed by: [place] [address] 27 Test Performed by: [facility] [address] [place] [address] 28 Class 0 (Negative <0.35) Test Performed by: [place] [address] 29 Class 0 (Negative <0.35) Test Performed by: [place] [address] Procedures Date Code Description Status 10/26/2018 11168 Nitric Oxide Gas Determination Completed 01/27/2018 71912 Skin Test Scratch # Of Units ____ Completed 01/27/2018 14320 Skin Test Scratch # Of Units ____ Completed 12/23/2017 34656 Pre PFT Completed 06/24/2017 00200 Pulmonary Function Test Completed 11/28/2008 71270 Pulmonary Function Test Completed Encounters Type Date Location Provider Dx Diagnosis Office Visit 10/26/2018 [place] Paty Cordero, J45.40 Moderate persistent 10:00a LOGGING ASSISTANT-C asthma, uncomplicated J30.1 Allergic rhinitis due to pollen J31.0 Chronic rhinitis J30.89 Other allergic rhinitis Office Visit 10/06/2018 8:40a [facility] Sherry Armstrong J30.89 Other allergic Vickie Peters rhinitis J45.40 Moderate persistent asthma, uncomplicated L27.2 Dermatitis due to ingested food Office Visit 09/24/2018 2:20p [place] Paty Cordero, J30.89 Other allergic LOGGING ASSISTANT-C rhinitis J45.40 Moderate persistent asthma, uncomplicated J30.1 Allergic rhinitis due to pollen Office Visit 06/23/2018 8:40a [facility] Sherry Armstrong J31.0 Chronic Vickie Peters rhinitis J30.89 Other allergic rhinitis J45.40 Moderate persistent asthma, uncomplicated J30.1 Allergic rhinitis due to pollen L27.2 Dermatitis due to ingested food Office Visit 05/27/2018 1:40p [facility] Paty Cordero J31.0 Chronic rhinitis LOGGING ASSISTANT-C J30.89 Other allergic rhinitis J45.40 Moderate persistent asthma, uncomplicated Office Visit 03/31/2018 11:00a [facility] Sherry Armstrong J31.0 Chronic Vickie Peters rhinitis J30.1 Allergic rhinitis due to pollen J30.89 Other allergic rhinitis L27.2 Dermatitis due to ingested food J45.40 Moderate persistent asthma, uncomplicated J06.9 Acute upper respiratory infection, unspecified Office Visit 01/27/2018 2:40p [facility] Paty Cordero J31.0 Chronic rhinitis LOGGING ASSISTANT-C L27.2 Dermatitis due to ingested food J30.1 Allergic rhinitis due to pollen J30.89 Other allergic rhinitis Office Visit 12/23/2017 11:20a [facility] Sherry Armstrong J31.0 Chronic Vickie Peters rhinitis L27.2 Dermatitis due to ingested food J45.30 Mild persistent asthma, uncomplicated T63.441D Toxic effect of venom of bees, accidental, subs Office Visit 06/24/2017 9:00a [facility] Sherry Armstrong J31.0 Chronic Vickie Peters rhinitis [...] 3:00 pm - Sherry Peters M.D. at [id number] 11:00 am - MALINA [facility] - SILVIA Self-CJ45.40 Moderate persistent asthma, iwdbawqywdavuY56.1 Allergic rhinitis due to dxwfikG08.0 Chronic duyxgywtR47.89 Other allergic rhinitisRecommendations:Continue all medications as prescribed.Refrain [...]
[2018-11-21 16:51] VITALS: BP 114/75
[2018-11-21] MEDS ORDERED: Azithromycin TAB* 250 MG PO ONE (17:12)
--- NOTE | 2018-11-21 17:12 | UC ---
Throat Pain/Nasal Foreign HPI - HPI Summary HPI Summary: 33-year-old female presents with complaints of headache, nasal congestion, sinus pressure, and general malaise for the past 4 days. States she initially thought that the headache was one of her migraines however states it is no more like the sinus infections that she has had in the past. Reports history of recurrent sinus infections and is scheduled for sinus surgery at [facility] in December. Denies fever, chills, ear pain, sore throat, cough, chest pain, wheezing , or shortness of breath. - History of Current Complaint Chief Complaint: UCGeneralIllness Stated Complaint: HEADACHE, NAUSEA Time Seen by Provider: 11/21/18 16:50 Hx Obtained From: Patient Hx Last Menstrual Period: 11/11/18 Pain Intensity: 9 - Allergies/Home Medications Allergies/Adverse Reactions: Allergies Allergy/AdvReac Type Severity Reaction Status Date / Time amitriptyline Allergy Unknown Verified 09/21/17 11:34 Reaction Details amoxicillin Allergy Anaphylatic Verified 09/21/17 11:34 Shock bupropion Allergy Unknown Verified 09/21/17 11:34 Reaction Details butalbital Allergy Unknown Verified 09/21/17 11:34 Reaction Details carisoprodol Allergy Unknown Verified 09/21/17 11:36 Reaction Details cefaclor Allergy Unknown Verified 09/21/17 11:34 Reaction Details cefadroxil Allergy Unknown Verified 09/21/17 11:34 Reaction Details cefdinir Allergy Unknown Verified 09/21/17 11:39 Reaction Details celecoxib Allergy Unknown Verified 09/21/17 11:41 Reaction Details cephalexin Allergy Unknown Verified 09/21/17 11:39 Reaction Details ciprofloxacin Allergy Numbness Verified 09/21/17 11:39 And Tingling clarithromycin Allergy Unknown Verified 09/21/17 11:39 Reaction Details clindamycin Allergy Unknown Verified 09/21/17 11:44 Reaction Details codeine Allergy Unknown Verified 09/21/17 11:44 Reaction Details desogestrel Allergy Unknown Verified 09/21/17 11:44 Reaction Details donepezil Allergy Unknown Verified 09/21/17 11:44 Reaction Details doxycycline Allergy Unknown Verified 09/21/17 11:44 Reaction Details drospirenone Allergy Unknown Verified 09/21/17 11:44 Reaction Details duloxetine [From Cymbalta] Allergy Unknown Verified 09/21/17 11:39 Reaction Details eletriptan Allergy Unknown Verified 09/21/17 11:49 Reaction Details escitalopram Allergy Unknown Verified 09/21/17 11:49 Reaction Details ethinyl estradiol Allergy Unknown Verified 09/21/17 11:34 [From Jolessa] Reaction Details fluoxetine Allergy Unknown Verified 09/21/17 11:49 Reaction Details gabapentin Allergy Hives Verified 09/21/17 11:34 hydrocodone Allergy Unknown Verified 09/21/17 11:49 Reaction Details ibuprofen Allergy Unknown Verified 09/21/17 11:53 Reaction Details lamotrigine [From Lamictal] Allergy Unknown Verified 09/21/17 11:53 Reaction Details levofloxacin [From Levaquin] Allergy Unknown Verified 09/21/17 11:53 Reaction Details levonorgestrel [From Jolessa] Allergy Unknown Verified 09/21/17 11:34 Reaction Details lithium Allergy Unknown Verified 09/21/17 11:53 Reaction Details loratadine Allergy Unknown Verified 09/21/17 11:53 Reaction Details meloxicam Allergy Unknown Verified 09/21/17 11:53 Reaction Details metformin Allergy Unknown Verified 09/21/17 11:53 Reaction Details metoclopramide [From Reglan] Allergy Unknown Verified 11/21/18 16:34 Reaction Details naproxen Allergy Unknown Verified 11/21/18 16:34 Reaction Details norethindrone Allergy Unknown Verified 11/21/18 16:34 [From Necon 0.5/35 (21)] Reaction Details pioglitazone [From Actos] Allergy Unknown Verified 11/21/18 16:34 Reaction Details pregabalin Allergy Anaphylatic Verified 11/21/18 16:34 Shock propranolol Allergy Unknown Verified 11/21/18 16:34 Reaction Details red dye Allergy Unknown Verified 11/21/18 16:34 Reaction Details rizatriptan [From Maxalt] Allergy Unknown Verified 11/21/18 16:34 Reaction Details sertraline [From Zoloft] Allergy Unknown Verified 11/21/18 16:34 Reaction Details Sulfa (Sulfonamide Allergy Hives Verified 11/21/18 16:34 Antibiotics) sulfamethoxazole Allergy Unknown Verified 11/21/18 16:34 [From Bactrim] Reaction Details sumatriptan [From Imitrex] Allergy Unknown Verified 11/21/18 16:34 Reaction Details topiramate [From Topamax] Allergy Unknown Verified 11/21/18 16:34 Reaction Details tramadol Allergy Unknown Verified 11/21/18 16:34 Reaction Details trazodone Allergy Unknown Verified 11/21/18 16:34 Reaction Details trimethoprim [From Bactrim] Allergy Unknown Verified 11/21/18 16:34 Reaction Details venlafaxine [From Effexor] Allergy Unknown Verified 11/21/18 16:34 Reaction Details zolmitriptan [From Zomig] Allergy Unknown Verified 11/21/18 16:34 Reaction Details most antibiotic Allergy Unknown Anaphylatic Uncoded 11/21/18 16:33 Shock CI pigment blue Allergy Unknown Uncoded 09/21/17 11:57 Reaction Details sprintec Allergy Unknown Uncoded 06/16/17 13:47 Reaction Details triximet Allergy Unknown Uncoded 09/21/17 11:57 Reaction Details VINYL Allergy problems Uncoded 06/16/17 13:47 with breathing Home Medications: Home Medications Azelastine 0.15% NASAL(NF) [Astepro 0.15% NASAL (NF)] 1 spray NASAL BID [History Confirmed 11/21/18] Beclomethasone Dipropionate [Qnasl] 2 spray NS DAILY 11/21/18 [History Confirmed 11/21/18] Budesonide/Formote 80/4.5(NF) [Symbicort 80/4.5 (NF)] 2 puff IN BID 11/21/18 [ History Confirmed 11/21/18] Glumetza, Brand Of Metformin 500 mg PO DAILY 11/21/18 [History] Pantoprazole TAB * [Protonix TAB*] 40 mg PO BID 11/21/18 [History Confirmed 11/06] Tiotropium [place] [Spiriva Respimat] 2 puff IN DAILY 11/21/18 [History Confirmed 11/21/18] Verapamil HCl 40 mg PO BID 11/21/18 [History Confirmed 11/21/18] raNITIdine HCl [Zantac] 300 mg PO DAILY 11/21/18 [History Confirmed 11/21/18] PMH/Surg Hx/FS Hx/Imm Hx Endocrine History: Diabetes Respiratory History: Asthma GI/ History: Gastroesophageal Reflux Neurological History: Migraine Psychological History: Bipolar Disorder Other History Of: Negative For: HIV, Hepatitis B, Hepatitis C, Anticoagulant Therapy - Surgical History Surgical History: Yes Surgery Procedure, Year, and Place: leep procedure 2014, foot operation 2016, fundoplication - Family History Known Family History: Positive: Cardiac Disease, Hypertension - Social History Occupation: Employed Full-time Lives: Alone Alcohol Use: None Substance Use Type: None Smoking Status (MU): Former Smoker Amount Used/How Often: 1 PPD X 6 MONTHS Have You Smoked in the Last Year: No When Did the Patient Quit Smoking/Using Tobacco: 2009 - Immunization History Most Recent Influenza Vaccination: unknown Hx Tetanus, Diphtheria Vaccination: Yes Vaccination Up to Date: Yes Review of Systems All Other Systems Reviewed And Are Negative: Yes Constitutional: Positive: Fatigue, Other - Malaise. Negative: Fever, Chills Eyes: Negative: Drainage, Eye Redness ENT: Positive: Nasal Discharge, Sinus Congestion, Sinus Pain/Tenderness. Negative: Sore Throat, Ear Ache Respiratory: Negative: Shortness Of Breath, Cough Cardiovascular: Negative: Palpitations, Chest Pain Gastrointestinal: Positive: Nausea. Negative: Abdominal Pain, Vomiting, Diarrhea Genitourinary: Negative: Dysuria, Hematuria, Frequency, Urgency Musculoskeletal: Positive: Negative Neurological: Positive: Headache Is Patient Immunocompromised?: No Physical Exam - Summary Physical Exam Summary: GENERAL APPEARANCE: Well developed, well nourished, alert and cooperative, and appears to be in no acute distress. EYES: Conjunctiva clear. No drainage. EARS: External auditory canals and tympanic membranes clear, hearing grossly intact. NOSE: Mild nasal congestion. Maxillary sinus tenderness. THROAT: Pharynx normal. No tonsilar inflammation, swelling, exudate, or lesions. Uvula midline. Oral cavity normal. Teeth and gingiva in good general condition. NECK: Neck supple, non-tender without lymphadenopathy. CARDIAC: Normal S1 and S2. No S3, S4 or murmurs. Rhythm is regular. There is no peripheral edema, cyanosis or pallor. Extremities are warm and well perfused. Capillary refill is less than 2 seconds. Peripheral pulses intact. LUNGS: Clear to auscultation without rales, rhonchi, wheezing or diminished breath sounds. ABDOMEN: Positive bowel sounds. Soft, nondistended, nontender. No guarding or rebound. No masses or hepatosplenomegally. MUSKULOSKELETAL: ROM intact to all extremities. No joint erythema or tenderness. Normal muscular development. Normal gait. SKIN: Skin normal color, texture and turgor with no lesions or eruptions. Triage Information Reviewed: Yes Vital Signs: Initial Vital Signs Temp 98.8 F 11/21/18 16:44 Pulse 95 11/21/18 16:44 Resp 16 11/21/18 16:44 BP 114/75 11/21/18 16:44 Pulse Ox 100 11/21/18 16:44 Vital Signs Reviewed: Yes Throat Pain/Nasal Course/Dx - Course Course Of Treatment: 33-year-old female presents with complaints of headache, nasal congestion, sinus pressure, and general malaise for the past 4 days. States she initially thought that the headache was one of her migraines however states it is no more like the sinus infections that she has had in the past. Reports history of recurrent sinus infections and is scheduled for sinus surgery at [facility] in December. Denies fever, chills, ear pain, sore throat, cough, chest pain, wheezing , or shortness of breath. Afebrile. Vital signs stable. Exam revealed mild nasal congestion and maxillary sinus tenderness and was otherwise unremarkable. Patient reports a multitude of allergies to medications and states that the only thing that has worked for her sinus infections in the past disease azithromycin. We'll treat her with a 5 day course of a azithromycin 500 mg daily. She is to continue to use her saline rinses and Qnasl as directed. She is to follow-up with her primary care provider in 3 days if symptoms are not improving. Anticipatory guidance and warning symptoms were reviewed with the patient. Verbalizes understanding and agrees with plan of care. - Differential Dx/Diagnosis Differential Diagnosis/HQI/PQRI: Sinusitis, URI, Other - Migraine Provider Diagnosis: Acute sinusitis Discharge - Sign-Out/Discharge Documenting (check all that apply): Patient Departure All imaging exams completed and their final reports reviewed: No Studies - Discharge Plan Condition: Stable Disposition: HOME Prescriptions: Azithromycin 500 mg PO DAILY #4 tab Patient Education Materials: Sinusitis (ED) Referrals: Edgard De Luna DO [Primary Care Provider] - Additional Instructions: We will treat you for a possible a sinus infection. Take azithromycin 1 tab daily for 5 days. Drink plenty of fluids to avoid dehydration especially if you are running any fever. Continue to use your saline rinse kit such as Neti Pot or NeilMed at least twice a day to help thin secretions and promote drainage of the sinuses. Use beclomethasone (Qnasl) nasal spray as directed. Take over the counter acetaminophen (Tylenol) according to directions as needed for pain or fever. Follow up with your primary care provider in 3 days if symptoms persist. Seek immediate medical attention in the emergency room if you have fever greater than 100.5 F despite taking acetaminophen or ibuprofen, have chest pain , difficulty breathing, are unable to swallow, or have any worsening of symptoms. - Billing Disposition and Condition Condition: STABLE Disposition: Home
== END 2018-11-21 17:18 | disposition home or self-care (01) ==
LOC: UCCORT 16:21
DX: J01.90 Acute sinusitis, unspecified (principal); E11.9 Type 2 diabetes mellitus without complications; K21.9 Gastro-esophageal reflux disease without esophagitis; Z88.1 Allergy status to other antibiotic agents; Z88.8 Allergy status to other drugs, medicaments and biological substances; Z79.84 Long term (current) use of oral hypoglycemic drugs; Z79.899 Other long term (current) drug therapy; Z87.891 Personal history of nicotine dependence
CPT/HCPCS: 99212; A9270-GY; G0463

== ENCOUNTER 2019-05-19 17:53 | Emergency (ER) | payer BC, OTHER ==
--- OUTSIDE RECORDS SUMMARY | 2019-05-19 19:29 | XMS REPORT | Continuity of Care Document ---
:1985 External Reference #:[id number] Author Name Heike Mcguire M.D. Address [address] [place] [address] Problems Description No Information Available Social History Type Date Description Comments Sex Unknown ETOH Use Denies alcohol use Tobacco Use Start: Unknown End: Patient is a former Quit date 2009. Unknown smoker Smoked a pack per day x 2 years Smoking Status Reviewed: 02/25/19 Patient is a former Quit date 2009. smoker Smoked a pack per day x 2 years Seat Belt/Car Seat Always uses seat belt Allergies, Adverse Reactions, Alerts Active Allergies Reaction Severity Comments Date Penicillin 12/16/2018 Sulfa Antibiotics 12/16/2018 Gabapentin 12/16/2018 Codeine 12/16/2018 Tramadol 12/16/2018 Hydrocodone 12/16/2018 Ibuprofen VOMITED BLOOD 12/16/2018 Pioglitazone Hydrochloride 12/16/2018 Alprazolam 12/16/2018 Amoxicillin 12/16/2018 Donepezil Hydrochloride 12/16/2018 Bactrim 12/16/2018 Clarithromycin 12/16/2018 Butalbital 12/16/2018 Carisoprodol 12/16/2018 Cefadroxil 12/16/2018 Cefdinir 12/16/2018 Celecoxib 12/16/2018 Clindamycin 12/16/2018 Doxycycline 12/16/2018 Amitriptyline was given for migraines 12/16/2018 per Pt Sumatriptan 12/16/2018 Kariva OCP 12/16/2018 Lamictal 12/16/2018 Levofloxacin 12/16/2018 Loratadine 12/16/2018 Rizatriptan Benzoate 12/16/2018 Meloxicam 12/16/2018 Glucophage 12/16/2018 Ethinyl Estradiol / 12/16/2018 Norethindrone Propranolol 12/16/2018 Metoclopramide 12/16/2018 Topiramate 12/16/2018 Trazodone 12/16/2018 Zoloft given for migraines per 12/16/2018 Pt Zomig 12/16/2018 Tegaderm 12/16/2018 Bees 12/16/2018 Medications Active Medications SIG Qnty Indications Ordering Provider Date Verapamil HCL 1 by mouth two 60tabs Heike Mcguire M.D. 02/11/2019 40mg times a day Tablets Pantoprazole Sodium 1 by mouth twice 60tabs Heike Mcguire M.D. 40mg a day day mfg Tablets DR gimenez Symbicort 2 puff twice a Unknown 80-4.5mcg/Act day Aerosol Ventolin HFA 2 puffs every Unknown 108(90Base) 4hrs. as needed mcg/Act Aerosol sob, wheezing, or tight cough Spiriva Respimat 2 puffs daily Unknown 1.25mcg/Act Aerosol Glumetza 1 by mouth daily Unknown 500mg Tablets ER 24HR Ranitidine HCL 1 by mouth every Unknown 300mg night at bedtime Tablets History Medications Ipratropium 3ml via neb 3 90ml Faye [place], 01/04/2019 - [place]/Albuterol Sulfate times a day as [employer] 02/25/2019 needed coughing 0.5-2.5(3)mg/3ML Solution and wheeze Immunizations CPT Code Status Date Vaccine Lot # 56879 Given 04/15/2019 Flu/Sanofi/Fluzone Iiv4 Prefilled P/F 97073 Given 08/25/2003 Meningococcal Conjugate Vaccine 43345 Given 03/02/1998 Td-Tetanus/Diphtheria /Adult (Records Only) 06077 Given 09/19/1997 Hep A Vac. Ped/Adolescent 58690 Given 02/22/1997 Hep A Vac. Ped/Adolescent 18410 Given 05/22/1995 Hep B Vac, (0-19) (3 Dose) 47175 Given 12/19/1994 Hep B Vac, (0-19) (3 Dose) 53446 Given 11/21/1994 Hep B Vac, (0-19) (3 Dose) 87602 Given 05/25/1990 MMR 76065 Given 09/27/1988 Poliomyelitis Vaccine 98782 Given 09/27/1988 DTP Or Tripedia 84231 Given 08/22/1987 Chicken Pox (Varicella) Vaccine 96876 Given 01/13/1986 Hib Titer Records Only 75289 Given 10/12/1985 Poliomyelitis Vaccine 56984 Given 10/12/1985 DTP Or Tripedia 42133 Given 05/04/1985 MMR 87946 Given 1984 Poliomyelitis Vaccine 98260 Given 1984 DTP Or Tripedia 50131 Given 1984 Poliomyelitis Vaccine 08452 Given 1984 DTP Or Tripedia 21078 Given 1984 Poliomyelitis Vaccine 08463 Given 1984 DTP Or Tripedia Vital Signs Date Vital Result Comment 04/26/2019 9:18am Weight 185.00 lb Height 66 inches 5'6" BP Systolic 124 mmHg BP Diastolic 82 mmHg Heart Rate 76 /min BMI (Body Mass Index) 29.9 kg/m2 Z68.29 A, 29.0-29.9 02/25/2019 10:09am Weight 181.00 lb Pt does not want to know weight Height 66 inches 5'6" BP Systolic 118 mmHg BP Diastolic 72 mmHg Heart Rate 76 /min BMI (Body Mass Index) 29.2 kg/m2 Results Description No Information Available Procedures Description No Information Available Medical Devices Description No Information Available Encounters Type Date Location Provider Dx Diagnosis Office Visit 04/26/2019 [facility] Heike Mcguire, F43.22 Adjustment 9:[facility] [place] disorder with anxiety G47.09 Other insomnia G47.9 Sleep disorder, unspecified Z87.11 Personal history of peptic ulcer disease G43.009 Migraine w/o aura, not intractable, w/o status migrainosus Z68.29 Body mass index (BMI) 29.0-29.9, adult Office Visit 02/25/2019 10:00a [facility] Faye Valdez, J32.9 [facility] [employer] sinusitis, unspecified F41.9 Anxiety disorder, unspecified G25.81 Restless legs syndrome Z68.29 Body mass index (BMI) 29.0-29.9, adult Office Visit 12/28/2018 2:30p [facility] Faye [place], J32.9 [facility] sinusitis, unspecified F41.9 Anxiety disorder, unspecified J30.9 Allergic rhinitis, unspecified J45.20 Mild intermittent asthma, uncomplicated Z68.29 Body mass index (BMI) 29.0-29.9, adult Assessments Date Code Description Provider 04/26/2019 F43.22 Adjustment disorder with anxiety Heike Mcguire M.D. 04/26/2019 G47.09 Other insomnia Heike Mcguire M.D. 04/26/2019 G47.9 Sleep disorder, unspecified Heike Mcguire M.D. 04/26/2019 Z87.11 Personal history of peptic ulcer disease Heike Mcguire M.D. 04/26/2019 G43.009 Migraine without aura, not intractable, Heike Mcguire M.D. without status migrainosus 04/26/2019 Z68.29 Body mass index (BMI) 29.0-29.9, adult Heike Mcguire M.D. 02/25/2019 J32.9 Chronic sinusitis, unspecified Faye [place], [facility] 02/25/2019 F41.9 Anxiety disorder, unspecified Faye [place], [facility] 02/25/2019 G25.81 Restless legs syndrome Faye [place], [facility] 02/25/2019 Z68.29 Body mass index (BMI) 29.0-29.9, adult Faye [place], [facility] 12/28/2018 J32.9 Chronic sinusitis, unspecified Faye [place], [facility] 12/28/2018 F41.9 Anxiety disorder, unspecified Faye [place], [facility] 12/28/2018 J30.9 Allergic rhinitis, unspecified Faye [place], [facility] 12/28/2018 J45.20 Mild intermittent asthma, uncomplicated Faye [place], [facility] 12/28/2018 Z68.29 Body mass index (BMI) 29.0-29.9, adult Faye [place], [facility] Plan of Treatment Future Appointment(s):07/05/2019 9:30 am - Heike Mcguire M.D. at [facility] [place]04/26/2019 - Heike Mcguire M.D.F43.22 Adjustment disorder with anxietyComments:PT C/O ANXIETY SXS. HAS BEEN PRESENT FOR A WHILE BUT IN RECENT MONTHS GOT WORSE DUE TO FEW FACTORS STATED ABOVE. PT HAS MADE AN APPT WITH THE THERAPIST TO HELP HER COPE WITH IT. PT HAS HAD ALLERGY OR INTOLERANCE TO NUMEROUS MEDS. STATES THAT SHE IS VERY SENSITIVE TO MEDS. THEREFORE PREFERS NOT TO BE STARTED ON ANY MEDS AT THIS TIME. SHE HAS MANAGED TO LIVE WITH ANXIETY FOR FEW YEARS. SO HOPING SHE WILL BE OKFollow up:. 2 XAOYAKT52.09 Other insomniaComments:WILL WORK WITH A THERAPIST AND SEE IF THAT HELPS. ALSO NOT SURE IF RECENT SINUS SURGEYR HAS CAUSED SLEEP APNEA. PT IS GOIGN TO HAVE SLEEP STUDYFollow up:.G47.9 Sleep disorder, unspecifiedNew Orders:Sleep Apnea Evaluation, Ordered: 04/26/19Comments: [id number] Personal history of peptic ulcer diseaseComments:REFILL OCXOBRBFOFFRY85.009 Migraine without aura, not intractable, without status migrainosusComments:REFILL VERAPAMILFollow up: .Z68.29 Body mass index (BMI) 29.0-29.9, adultComments:Discussed heathy diet, exercise and lifestyle. Arrangements made for followup.Follow up:.AllFollow up:. Functional Status Description No Information Available Mental Status Description No Information Available Referrals Description No Information Available
--- OUTSIDE RECORDS SUMMARY | 2019-05-19 19:29 | XMS REPORT | Continuity of Care Document ---
:1985 External Reference #:[id number] Author Name Sherry Peters M.D. Address [address] [place] [address] Care Team Providers Name Role Phone Cristin Choi M.D. Care Team Information Tennis Court Attendant [phone] Heike Mcguire M.D. Care Team Information Tennis Court Attendant [phone] Problems Active Problems Provider Date Chronic rhinitis [...] persistent asthma Sherry Peters M.D. Onset: 03/31 Social History Type Date Description Comments Sex Unknown ETOH Use Denies alcohol use Tobacco Use Start: Unknown End: Patient is a former smoker quit in 2008 Unknown Recreational Drug Use Denies Drug Use Allergies, [...] Medications SIG Qnty Indications Ordering Date Provider Flonase Sensimist 1 spray each 3units Sherry Armstrong 03/18/2019 nostril once a day Vickie Peters 27.5mcg/[place] Suspension Ventolin HFA 2 puffs every 4 18gm Patyalda Moyaosceola [facility], 12/23/2017 hours as needed for NEWSP[employer]ER REPORTER-C 108(90Base) mcg/Act cough, shortness of Aerosol breath or chest tighntess Verapamil HCL once a day Unknown 80mg Tablets Glumetza once a day Unknown 500mg Tablets ER 24HR Pantoprazole Sodium Unknown 40mg Tablets DR Hassan 2-Michael use as directed 2units Paty Cordero, NEWSP[employer]ER REPORTER-C 0.3mg/0.3ML Solution Auto-Inject Ranitidine Italo Velez MD 300mg Tablets Azelastine HCL instill 2 sprays 30ml Lisa (Nasal) into each nostril GiovanniRPA-C 0.15% twice a day Solution Apri Unknown 0.15-30mg-mcg Tablets Zyrtec Allergy 1 every day Unknown 10mg Tablets Spiriva Respimat 2 puffs once daily 1units Paty Cordero, NEWSP[employer]ER REPORTER-C 1.25mcg/Act Aerosol Symbicort 2 inhalations am&pm Unknown 160-4.5mcg/Act Aerosol Ondansetron Italo Larkin MD 4mg Tablets Dispers Immunizations CPT Code Status Date Vaccine Lot # [id number] Given Unknown Pneumococcal Vaccine 33350 Given Unknown Influenza Vaccine 30832 Given Unknown Influenza Vaccine Vital Signs Date Vital Result Comment 04/06/2019 8:47am Height 66.5 inches 5'6.50" Weight 170.00 lb Weight 77.112 kg Respiratory Rate 16 /min Heart Rate 91 /min Body Temperature 97.7 F O2 % BldC Oximetry 99 % BP Systolic 114 mmHg BP Diastolic 75 mmHg Asthma Control Test 13 Fractional Exhaled Nitric Oxide 13 BMI (Body Mass Index) 27.0 kg/m2 03/17/2019 10:53am Height 66.5 inches 5'6.50" Weight 170.00 lb patient stated Weight 77.112 kg Respiratory Rate 16 /min Heart Rate 98 /min O2 % BldC Oximetry 99 % BP Systolic 107 mmHg BP Diastolic 69 mmHg Asthma Control Test 11 BMI (Body Mass Index) 27.0 kg/m2 Results Test Date Facility Test Result H/L Range Note Laboratory test 11/11/2018 [facility] Amoxicillin <0.35 kU/ L [address] [place] [address] [phone] 1 Class 0 (Negative <0.35) Test Performed by: [facility] [address] [place] [address] Procedures Date Code Description Status 04/06/2019 74153 Nitric Oxide Gas Determination Completed 03/17/2019 53237 Ippb Completed 03/12/2019 49358 Ippb Completed 02/08/2019 21203 Pre PFT Completed 11/10/2018 79041 Nitric Oxide Gas Determination Completed 11/10/2018 18915 Pre PFT Completed 10/26/2018 85244 Nitric Oxide Gas Determination Completed Medical Devices Description No Information Available Encounters Type Date Location Provider Dx Diagnosis Office Visit 04/06/2019 [facility] Sherry Murphy30.89 Other allergic 8:40a Vickie Peters rhinitis J45.40 Moderate persistent asthma, uncomplicated J31.0 Chronic rhinitis Office Visit 03/17/2019 11:00a [facility] French Self.89 Other allergic NEWSP[employer]ER REPORTER-C rhinitis J45.40 Moderate persistent asthma, uncomplicated J31.0 Chronic rhinitis Office Visit 03/12/2019 11:00a Leonie Cordero J30.89 Other allergic [employer]SP[employer]ER REPORTER-C rhinitis J30.1 Allergic rhinitis due to pollen Office Visit 02/08/2019 11:40a Leonie Cordero J45.41 Moderate persistent [employer] REPORTER-C asthma with (acute) exacerbation J45.40 Moderate persistent asthma, uncomplicated J30.89 Other allergic rhinitis J30.1 Allergic rhinitis due to pollen J32.8 Other chronic sinusitis Office Visit 01/15/2019 3:00p Leonie Peters J45.40 Moderate persistent M.D. asthma, uncomplicated J30.89 Other allergic rhinitis J30.1 Allergic rhinitis due to pollen J32.8 Other chronic sinusitis Office Visit 01/04/2019 3:20p Leonie Cordero J45.40 Moderate persistent [employer]SP[employer]ER REPORTER-C asthma, uncomplicated J30.89 Other allergic rhinitis J06.9 Acute upper respiratory infection, unspecified Office Visit 11/10/2018 11:00a [facility] Paty J45.40 Moderate persistent Uldrich, NEWSP[employer]ER REPORTER-C asthma, uncomplicated J30.1 Allergic rhinitis due to pollen J30.89 Other allergic rhinitis Office Visit 10/26/2018 10:00a Leonie Cordero J45.40 Moderate persistent NEWSP[employer]ER REPORTER-C asthma, uncomplicated J30.1 Allergic rhinitis due to pollen J31.0 Chronic rhinitis J30.89 Other allergic rhinitis Office Visit 10/06/2018 8:40a [facility] Sherry Armstrong J30.89 Other allergic Vickie Peters rhinitis J45.40 Moderate persistent asthma, uncomplicated 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 04/06/2019 J45.40 Moderate persistent asthma, uncomplicated Sherry Peters M.D. 04/06/2019 J31.0 Chronic rhinitis Sherry Peters M.D. 03/17/2019 J30.89 Other allergic rhinitis Sherry Peters M.D. 03/17/2019 J30.89 Other allergic rhinitis Paty Cordero, NEWSPAPER REPORTER-C 03/17/2019 J45.40 Moderate persistent asthma, uncomplicated Sherry Peters M.D. 03/17/2019 J45.40 Moderate persistent asthma, uncomplicated Paty Uldrich , NEWSP[employer]ER REPORTER-C 03/17/2019 J31.0 Chronic rhinitis Sherry Peters M.D. 03/17/2019 J31.0 Chronic rhinitis Paty Uldrich, NEWSP[employer]ER REPORTER-C 03/12/2019 J30.89 Other allergic rhinitis Sherry Peters M.D. 03/12/2019 J30.89 Other allergic rhinitis Paty Uldrich, NEWSPAPER REPORTER-C 03/12/2019 J30.1 Allergic rhinitis due to pollen Sherry Peters M.D. 03/12/2019 J30.1 Allergic rhinitis due to pollen Paty Uldrich, NEWSPAPER REPORTER-C 02/08/2019 J45.41 Moderate persistent asthma with (acute) Sherry Peters M.D. exacerbation 02/08/2019 J45.41 Moderate persistent asthma with (acute) Sherry Peters M.D. exacerbation 02/08/2019 J45.40 Moderate persistent asthma, uncomplicated Sherry Peters M.D. 02/08/2019 J45.41 Moderate persistent asthma with (acute) Paty Uldrich, NEWSPAPER REPORTER-C exacerbation 02/08/2019 J45.40 Moderate persistent asthma, uncomplicated Sherry Peters M.D. 02/08/2019 J45.40 Moderate persistent asthma, uncomplicated Paty Uldrich , NEWSPAPER REPORTER-C 02/08/2019 J30.89 Other allergic rhinitis Sherry Peters M.D. 02/08/2019 J30.89 Other allergic rhinitis Paty Uldrich, NEWSPAPER REPORTER-C 02/08/2019 J30.1 Allergic rhinitis due to pollen Sherry Peters M.D. 02/08/2019 J30.1 Allergic rhinitis due to pollen Paty Uldrich, NEWSPAPER REPORTER-C 02/08/2019 J32.8 Other chronic sinusitis Paty Uldrich, NEWSPAPER REPORTER-C 01/15/2019 J45.40 Moderate persistent asthma, uncomplicated Sherry Peters M.D. 01/15/2019 J30.89 Other allergic rhinitis Sherry Peters M.D. 01/15/2019 J30.1 Allergic rhinitis due to pollen Sherry Peters M.D. 01/15/2019 J32.8 Other chronic sinusitis Sherry Peters M.D. 01/04/2019 J45.40 Moderate persistent asthma, uncomplicated Sherry Peters M.D. 01/04/2019 J45.40 Moderate persistent asthma, uncomplicated Paty Uldrich , NEWSP[employer]ER REPORTER-C 01/04/2019 J30.89 Other allergic rhinitis Sherry Peters M.D. 01/04/2019 J30.89 Other allergic rhinitis Paty Uldrich, NEWSPAPER REPORTER-C 01/04/2019 J06.9 Acute upper respiratory infection, Sherry Peters M.D. unspecified 01/04/2019 J06.9 Acute upper respiratory infection, Paty Uldrich, NEWSPAPER REPORTER-C unspecified 11/10/2018 J45.40 Moderate persistent asthma, uncomplicated Sherry Peters M.D. 11/10/2018 J45.40 Moderate persistent asthma, uncomplicated Paty Uldrich , NEWSPAPER REPORTER-C 11/10/2018 J30.1 Allergic rhinitis due to pollen Sherry Peters M.D. 11/10/2018 J30.1 Allergic rhinitis due to pollen Paty Uldrich, NEWSPAPER REPORTER-C 11/10/2018 J30.89 Other allergic rhinitis Sherry Peters M.D. 11/10/2018 J30.89 Other allergic rhinitis Paty Uldrich, NEWSPAPER REPORTER-C 10/26/2018 J45.40 Moderate persistent asthma, uncomplicated Sherry Peters M.D. 10/26/2018 J45.40 Moderate persistent asthma, uncomplicated Payt Uldrich , NEWSPAPER REPORTER-C 10/26/2018 J30.1 Allergic rhinitis due to pollen Sherry Peters M.D. 10/26/2018 J30.1 Allergic rhinitis due to pollen Paty Uldrich, NEWSPAPER REPORTER-C 10/26/2018 J31.0 Chronic rhinitis Sherry Peters M.D. 10/26/2018 J31.0 Chronic rhinitis Paty Uldrich, NEWSPAPER REPORTER-C 10/26/2018 J30.89 Other allergic rhinitis Sherry Peters M.D. 10/26/2018 J30.89 Other allergic rhinitis Paty Cordero, SILVIA-C 10/06/2018 J30.89 Other allergic rhinitis Sherry Peters M.D. 10/06/2018 J45.40 Moderate persistent asthma, uncomplicated Sherry Peters M.D. 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 Plan of Treatment Future Appointment(s):05/18/2019 8:40 am - Sherry Peters M.D. at [facility]06/25/2019 11:40 am - Sherry Peters M.D. at [id number]/06/2019 - Sherry Peters M.D.J30.89 Other allergic [id number] Moderate persistent asthma, gtsiwulwrodahO29.0 Chronic rhinitisFollow up:6 weeks, CHECK-UP/FOLLOW UP VISIT: Continued management of patient's medical care.Recommendations: Refrain from wearing perfumes/scented colognes while visiting our office. recommend continued evaluation with ENT - f/u Friday as scheduled -phone call made to Marva Breaux today - awaiting call back.continue Symbicort reduce from 160/4.5 2 puffs twice daily to 80/4.5 2 puffs twice daily; rinse mouth after use Use Albuterol 2 puffs every 4 hours as needed for cough, wheezing shortness of breath orchest tightness OR 15 mins prior to exercise. Call if using >2x/week aside from pre-exercise. continue Zyrtec 10 mg once daily continue Astelin 0.15 2 inhalations 2x/day continue Flonase sensimist 2 sprays to each nostril once daily Continue strict avoidance of shellfish. Refer to your emergency plan in case of accidental ingestion/exposure. EpiPen pt has; indications for use reviewed and technique demonstrated Refer to [email or web address].org for further information. Functional Status Description No Information Available Mental Status Description No Information Available Referrals Description No Information Available
[2019-05-19 19:35] VITALS: BP 116/71
[2019-05-19] MEDS ORDERED: Ondansetron ODT TAB* 4 MG PO ONE (20:07)
--- NOTE | 2019-05-19 20:14 | UC ---
Throat Pain/Nasal Foreign HPI - HPI Summary HPI Summary: 34 year old female presents with a constellation of complaints. She states that since 05/10/2019 she has "felt out of it". States has had intermittent nausea and vomiting several times a week. Reports she is supposed to be seeing her PCP next week for this and get some blood work done. Over the last couple days she has also developed some nasal congestion, bilateral ear pain, and a sore throat. States she is concerned she has an ear infection. She was evaluated earlier today at [facility] urgent care for same symptoms and diagnosed with a viral illness. Reports had negative flu test there. States she has felt "hot and cold" but no measured fever. Denies ear drainage, dysphagia, chest pain, SOB , abdominal pain, diarrhea, dysuria, frequency, urgency, or hematuria. - History of Current Complaint Chief Complaint: UCGeneralIllness Stated Complaint: VOMITING, SORE THROAT Time Seen by Provider: 05/19/19 19:39 Hx Obtained From: Patient Hx Last Menstrual Period: 05/11/19 Pain Intensity: 8 - Allergies/Home Medications Allergies/Adverse Reactions: Allergies Allergy/AdvReac Type Severity Reaction Status Date / Time amitriptyline Allergy Unknown Verified 05/19/19 19:35 Reaction Details amoxicillin Allergy Anaphylatic Verified 05/19/19 19:35 Shock bupropion Allergy Unknown Verified 05/19/19 19:35 Reaction Details butalbital Allergy Unknown Verified 05/19/19 19:35 Reaction Details carisoprodol Allergy Unknown Verified 05/19/19 19:35 Reaction Details cefaclor Allergy Unknown Verified 05/19/19 19:35 Reaction Details cefadroxil Allergy Unknown Verified 05/19/19 19:35 Reaction Details cefdinir Allergy Unknown Verified 05/19/19 19:35 Reaction Details celecoxib Allergy Unknown Verified 05/19/19 19:35 Reaction Details cephalexin Allergy Unknown Verified 05/19/19 19:35 Reaction Details ciprofloxacin Allergy Numbness Verified 05/19/19 19:35 And Tingling clarithromycin Allergy Unknown Verified 05/19/19 19:35 Reaction Details clindamycin Allergy Unknown Verified 05/19/19 19:35 Reaction Details codeine Allergy Unknown Verified 05/19/19 19:35 Reaction Details desogestrel Allergy Unknown Verified 05/19/19 19:35 Reaction Details donepezil Allergy Unknown Verified 05/19/19 19:35 Reaction Details doxycycline Allergy Unknown Verified 05/19/19 19:35 Reaction Details drospirenone Allergy Unknown Verified 05/19/19 19:35 Reaction Details duloxetine [From Cymbalta] Allergy Unknown Verified 05/19/19 19:35 Reaction Details eletriptan Allergy Unknown Verified 05/19/19 19:35 Reaction Details escitalopram Allergy Unknown Verified 05/19/19 19:35 Reaction Details ethinyl estradiol Allergy Unknown Verified 05/19/19 19:35 [From Jolessa] Reaction Details fluoxetine Allergy Unknown Verified 05/19/19 19:35 Reaction Details gabapentin Allergy Hives Verified 05/19/19 19:35 hydrocodone Allergy Unknown Verified 05/19/19 19:35 Reaction Details ibuprofen Allergy Unknown Verified 05/19/19 19:35 Reaction Details lamotrigine [From Lamictal] Allergy Unknown Verified 05/19/19 19:35 Reaction Details levofloxacin [From Levaquin] Allergy Unknown Verified 05/19/19 19:35 Reaction Details levonorgestrel [From Jolessa] Allergy Unknown Verified 05/19/19 19:35 Reaction Details lithium Allergy Unknown Verified 05/19/19 19:35 Reaction Details loratadine Allergy Unknown Verified 05/19/19 19:35 Reaction Details meloxicam Allergy Unknown Verified 05/19/19 19:35 Reaction Details metformin Allergy Unknown Verified 05/19/19 19:35 Reaction Details metoclopramide [From Reglan] Allergy Unknown Verified 05/19/19 19:35 Reaction Details naproxen Allergy Unknown Verified 05/19/19 19:35 Reaction Details norethindrone Allergy Unknown Verified 05/19/19 19:35 [From Necon 0.5/35 (21)] Reaction Details pioglitazone [From Actos] Allergy Unknown Verified 05/19/19 19:35 Reaction Details pregabalin Allergy Anaphylatic Verified 05/19/19 19:35 Shock propranolol Allergy Unknown Verified 05/19/19 19:35 Reaction Details red dye Allergy Unknown Verified 05/19/19 19:35 Reaction Details rizatriptan [From Maxalt] Allergy Unknown Verified 05/19/19 19:35 Reaction Details sertraline [From Zoloft] Allergy Unknown Verified 05/19/19 19:35 Reaction Details Sulfa (Sulfonamide Allergy Hives Verified 05/19/19 19:35 Antibiotics) sulfamethoxazole Allergy Unknown Verified 05/19/19 19:35 [From Bactrim] Reaction Details sumatriptan [From Imitrex] Allergy Unknown Verified 05/19/19 19:35 Reaction Details topiramate [From Topamax] Allergy Unknown Verified 05/19/19 19:35 Reaction Details tramadol Allergy Unknown Verified 05/19/19 19:35 Reaction Details trazodone Allergy Unknown Verified 05/19/19 19:35 Reaction Details trimethoprim [From Bactrim] Allergy Unknown Verified 05/19/19 19:35 Reaction Details venlafaxine [From Effexor] Allergy Unknown Verified 05/19/19 19:35 Reaction Details zolmitriptan [From Zomig] Allergy Unknown Verified 05/19/19 19:35 Reaction Details most antibiotic Allergy Unknown Anaphylatic Uncoded 05/19/19 19:35 Shock CI pigment blue Allergy Unknown Uncoded 05/19/19 19:35 Reaction Details sprintec Allergy Unknown Uncoded 05/19/19 19:35 Reaction Details triximet Allergy Unknown Uncoded 05/19/19 19:35 Reaction Details VINYL Allergy problems Uncoded 05/19/19 19:35 with breathing Home Medications: Home Medications Desogestrel-Ethinyl Estradiol [Desogest-Eth Estra 0.15-0.03MG] 1 each PO DAILY 05/19/19 [History Confirmed 05/19/19] Ondansetron ODT TAB* [Zofran 4 MG Odt TAB*] 4 mg PO Q6H PRN 05/19/19 [History Confirmed 05/19/19] PMH/Surg Hx/FS Hx/Imm Hx - Additional Past Medical History Additional PMH: "Autoimmune disorder" Other History Of: Negative For: HIV, Hepatitis B, Hepatitis C, Anticoagulant Therapy - Surgical History Surgical History: Yes Surgery Procedure, Year, and Place: leep procedure 2013, foot operation 2016, fundoplication, sinus endoscopy - Family History Known Family History: Positive: Cardiac Disease, Hypertension - Social History Alcohol Use: None Substance Use Type: None Smoking Status (MU): Former Smoker Amount Used/How Often: 1 PPD X 6 MONTHS Have You Smoked in the Last Year: No When Did the Patient Quit Smoking/Using Tobacco: 2009 - Immunization History Most Recent Influenza Vaccination: unknown Hx Tetanus, Diphtheria Vaccination: Yes Vaccination Up to Date: Yes Review of Systems All Other Systems Reviewed And Are Negative: Yes Constitutional: Positive: Chills, Fatigue Skin: Negative: Rash Eyes: Negative: Drainage, Eye Redness ENT: Positive: Sore Throat, Ear Ache. Negative: Nasal Discharge, Sinus Congestion, Sinus Pain/Tenderness Respiratory: Negative: Shortness Of Breath, Cough Cardiovascular: Negative: Palpitations, Chest Pain Gastrointestinal: Positive: Vomiting, Nausea. Negative: Abdominal Pain, Diarrhea Genitourinary: Negative: Dysuria, Hematuria, Frequency, Urgency Musculoskeletal: Positive: Negative Neurological: Negative: Headache Is Patient Immunocompromised?: No Physical Exam - Summary Physical Exam Summary: GENERAL APPEARANCE: Well developed, well nourished, alert and cooperative, and appears to be in no acute distress. EYES: Conjunctiva clear. No drainage. EARS: External auditory canals and tympanic membranes clear, hearing grossly intact. NOSE: No nasal discharge. THROAT: Pharynx normal. No tonsilar inflammation, swelling, exudate, or lesions. Uvula midline. NECK: Neck supple, non-tender without lymphadenopathy. CARDIAC: Normal S1 and S2. No S3, S4 or murmurs. Rhythm is regular. There is no peripheral edema, cyanosis or pallor. Extremities are warm and well perfused. Capillary refill is less than 2 seconds. Peripheral pulses intact. LUNGS: Clear to auscultation without rales, rhonchi, wheezing or diminished breath sounds. ABDOMEN: Positive bowel sounds. Soft, nondistended, nontender. No guarding or rebound. No masses or hepatosplenomegally. No CVA tenderness. MUSKULOSKELETAL: ROM intact to all extremities. No joint erythema or tenderness. Normal muscular development. Normal gait. SKIN: Skin normal color, texture and turgor with no lesions or eruptions. Triage Information Reviewed: Yes Vital Signs: Initial Vital Signs Temp 98.2 F 05/19/19 19:30 Pulse 90 05/19/19 19:30 Resp 16 05/19/19 19:30 BP 116/71 05/19/19 19:30 Pulse Ox 100 05/19/19 19:30 Vital Signs Reviewed: Yes Throat Pain/Nasal Course/Dx - Course Course Of Treatment: 34 year old female presents with a constellation of complaints. She states that since 05/10/2019 she has "felt out of it". States has had intermittent nausea and vomiting several times a week. Reports she is supposed to be seeing her PCP next week for this and get some blood work done. Over the last couple days she has also developed some nasal congestion, bilateral ear pain, and a sore throat. States she is concerned she has an ear infection. She was evaluated earlier today at [facility] urgent care for same symptoms and diagnosed with a viral illness. Reports had negative flu test there. States she has felt "hot and cold" but no measured fever. Denies ear drainage, dysphagia, chest pain, SOB , abdominal pain, diarrhea, dysuria, frequency, urgency, or hematuria. Afebrile. Vital signs stable. Patient had an overal unremarkable exam. Since she reports that she had a negative flu test earlier recommended that we rule out strep especially with her history of sore throat, nausea, and vomiting. Rapid strep test was negative. Reviewed results with patient. She continued to report persistent nausea and was requesting that lab work be drawn so that she could have it for her appointment with her primary next week to which I agreed. A CBC and BMP were ordered along with a dose of ondansetron for her nausea. Nursing then informed me that the patient declined the labs and requested to take the ondansetron for use at home later. Patient was counseled to continue with symptomatic treatment for her symptoms and follow up with her PCP in 2 days for recheck of her symptoms. Anticipatory guidance and warning symptoms were reviewed with the patient. Verbalizes understanding and agrees with POC. - Differential Dx/Diagnosis Differential Diagnosis/HQI/PQRI: Mononucleosis, Peritonsillar Abscess, Pharyngitis, Tonsillitis, URI, Other - gastroenteritis Provider Diagnosis: Viral syndrome Discharge ED - Sign-Out/Discharge Documenting (check all that apply): Patient Departure All imaging exams completed and their final reports reviewed: No Studies - Discharge Plan Condition: Stable Disposition: HOME Patient Education Materials: Viral Syndrome (ED) Referrals: Eric Armas MD [Primary Care Provider] - 2 Days Additional Instructions: Your history and exam are consistent with a viral infection. Viral infections do not respond to antibiotics and are limited to the treatment of symptoms. Viral infections typically run their course in 7-10 days. Drink plenty of fluids to avoid dehydration especially if you are running any fever. Use a saline rinse kit such as Neti Pot or NeilMed at least twice a day to help thin secretions and promote drainage of the sinuses. Take over the counter acetaminophen (Tylenol) or ibuprofen (Advil, Motrin) according to directions as needed for pain or fever. Use salt water gargles several times a day if you have a sore throat. We gave you a dose of ondansetron in the clinic tonight for the nausea. You may continue to use your ondansetron as directed at home. Drink plenty of fluids. Try to drink small amounts frequently to avoid filling your stomach to full which can cause vomiting. If you are still having vomiting, start with a clear liquid diet including soup broths, Jello, popsicles, and augustus-manda with carbonation stirred out of it. You may then advance to a bland diet including saltine crackers, toast, bananas , rice, and applesauce. Then return to a normal diet as tolerated. Follow up here or with your primary care provider in 2 days if symptoms persist. Seek immediate medical attention in the emergency room if you develop fever greater than 100.5 F, you are unable to swallow, difficulty breathing, have severe abdominal pain, persistent vomiting, blood in your vomit or stool, or any worsening of symptoms. - Billing Disposition and Condition Condition: STABLE Disposition: Home
== END 2019-05-19 20:35 | disposition home or self-care (01) ==
LOC: UCCORT 17:53
DX: B34.9 Viral infection, unspecified (principal); J02.9 Acute pharyngitis, unspecified; R53.83 Other fatigue; R11.2 Nausea with vomiting, unspecified; H92.09 Otalgia, unspecified ear; Z88.0 Allergy status to penicillin; Z88.1 Allergy status to other antibiotic agents; Z88.5 Allergy status to narcotic agent; Z88.8 Allergy status to other drugs, medicaments and biological substances; Z88.2 Allergy status to sulfonamides; Z91.041 Radiographic dye allergy status; Z91.09 Other allergy status, other than to drugs and biological substances; Z87.891 Personal history of nicotine dependence
CPT/HCPCS: 87651; 99212; A9270-GY; G0463

== ENCOUNTER 2019-07-01 09:50 | Emergency (ER) | payer BC ==
--- OUTSIDE RECORDS SUMMARY | 2019-07-01 11:00 | XMS REPORT | Continuity of Care Document ---
:1985 External Reference #:[id number] Author Name Sherry Peters M.D. Address [address] [place] [id number] Care Team Providers Name Role Phone Mary Freeman NP Care Team Information Agriculture Technician [phone] Problems Active Problems Provider Date Chronic rhinitis [...] Medications SIG Qnty Indications Ordering Date Provider Levocetirizine 1 by mouth every 30tabs J30.89 Sherry Armstrong 06/25/2019 Dihydrochloride day Vickie Peters 5mg Tablets Ventolin HFA 2 puffs every 4 18gm Paty 12/23/2017 108(90Base) hours as needed Uldrich, [employer] mcg/Act Aerosol for cough, shortness of breath or chest tighntess Xyzal Allergy 24HR once daily at Unknown 5mg Tablets bedtime Flonase Sensimist 1 spray each Unknown 27.5mcg/Enola nostril once a Suspension day Symbicort 2 inhalations Unknown 160-4.5mcg/Act am&pm Aerosol Hydroxychloroquine 1 tab by mouth Unknown Sulfate twice daily. 200mg Tablets Ondansetron Mestad, Italo, 4mg Tablets Dispers Spiriva Respimat 2 puffs once 1units Paty 1.25mcg/Act daily Uldrich, [employer] Aerosol Zyrtec Allergy 1 every day Unknown 10mg Tablets Apri Unknown 0.15-30mg-mcg Tablets Azelastine HCL (Nasal) instill 2 sprays 30ml Lisa Reliance, 0.15% into each nostril RPA-C Solution twice a day Ranitidine HCL Mestad, Italo, 300mg Tablets Epipen 2-Michael use as directed 2units Paty 0.3mg/0.3ML MALINA Cordero Solution Auto-Inject Pantoprazole Sodium Unknown 40mg Tablets DR Glumetsusan once a day Unknown 500mg Tablets ER 24HR Verapamil HCL once a day Unknown 80mg Tablets History Medications Symbicort 2 puffs inhalation 30.6gm Paty Cordero, 04/08/2019 - 80-4.5mcg/Act twice a day [employer] 06/25/2019 Aerosol Medications Administered in Office Medication SIG Qnty Indications Ordering Provider Date Injection Allergy Injection 05/26/2019 Injection Immunizations CPT Code Status Date Vaccine Lot # 52977 Given Unknown Pneumococcal Vaccine 28574 Given Unknown Influenza Vaccine 48071 Given Unknown Influenza Vaccine 36620 Given Unknown Influenza Vaccine Vital Signs Date Vital Result Comment 06/25/2019 11:55am Height 66.5 inches 5'6.50" Weight 180.00 lb Weight 81.648 kg Respiratory Rate 20 /min Heart Rate 88 /min O2 % BldC Oximetry 99 % BP Systolic 106 mmHg BP Diastolic 67 mmHg Asthma Control Test 12 BMI (Body Mass Index) 28.6 kg/m2 05/20/2019 11:26am Height 66.5 inches 5'6.50" Weight 170.00 lb Weight 77.112 kg Respiratory Rate 16 /min Heart Rate 88 /min O2 % BldC Oximetry 98 % BP Systolic 107 mmHg BP Diastolic 77 mmHg Asthma Control Test 24 BMI (Body Mass Index) 27.0 kg/m2 Results Description No Information Available Procedures Date Code Description Status 05/26/2019 85954 Injection Completed 05/20/2019 21867 Skin Test Scratch # Of Units ____ Completed 04/06/2019 30982 Nitric Oxide Gas Determination Completed 03/17/2019 75837 Ippb Completed 03/12/2019 26464 Ippb Completed 02/08/2019 31925 Pre PFT Completed Medical Devices Description No Information Available Encounters Type Date Location Provider Dx Diagnosis Office Visit 05/20/2019 Leonie Cordero, J30.89 Other allergic 11:20a [facility] rhinitis J45.40 Moderate persistent asthma, uncomplicated J31.0 Chronic rhinitis J30.1 Allergic rhinitis due to pollen J30.81 Allergic rhinitis due to animal (cat) (dog) hair and dander Office Visit 04/06/2019 8:40a [facility] Sherry Armstrong J30.89 Other allergic Vickie Peters rhinitis J45.40 Moderate persistent asthma, uncomplicated J31.0 Chronic rhinitis Office Visit 03/17/2019 11:00a [facility] Paty Cordero J30.89 Other allergic [employer] rhinitis J45.40 Moderate persistent asthma, uncomplicated J31.0 Chronic rhinitis Office Visit 03/12/2019 11:00a [place] Paty Cordero J30.89 Other allergic [employer] rhinitis J30.1 Allergic rhinitis due to pollen Office Visit 02/08/2019 11:40a [place] Paty Cordero J45.41 Moderate persistent [employer] asthma with (acute) exacerbation J45.40 Moderate persistent asthma, uncomplicated J30.89 Other allergic rhinitis J30.1 Allergic rhinitis due to pollen J32.8 Other chronic sinusitis Office Visit 01/15/2019 3:00p [place] Sherry Peters J45.40 Moderate persistent M.D. asthma, uncomplicated J30.89 Other allergic rhinitis J30.1 Allergic rhinitis due to pollen J32.8 Other chronic sinusitis Office Visit 01/04/2019 3:20p [place]ie Cordero J45.40 Moderate persistent [employer] asthma, uncomplicated J30.89 Other allergic rhinitis J06.9 Acute upper respiratory infection, unspecified Assessments Date Code Description Provider 06/25/2019 J30.89 Other allergic rhinitis Sherry Peters M.D. 06/25/2019 J30.2 Other seasonal allergic rhinitis Sherry Peters M.D. 06/25/2019 J30.81 Allergic rhinitis due to animal (cat) (dog) Sehrry Peters M.D. hair and dander 06/25/2019 J45.40 Moderate persistent asthma, uncomplicated Sherry Peters M.D. 05/26/2019 J30.89 Other allergic rhinitis Sherry Peters M.D. 05/26/2019 J30.89 Other allergic rhinitis Allergy Injection 05/26/2019 J30.2 Other seasonal allergic rhinitis Sherry Peters M.D. 05/26/2019 J30.2 Other seasonal allergic rhinitis Allergy Injection 05/26/2019 J30.81 Allergic rhinitis due to animal (cat) (dog) Sherry Peters M.D. hair and dander 05/26/2019 J30.81 Allergic rhinitis due to animal (cat) (dog) Allergy Injection hair and dander 05/20/2019 J30.89 Other allergic rhinitis Sherry Peters M.D. 05/20/2019 J30.89 Other allergic rhinitis Patyalda Cordero, [facility] 05/20/2019 J45.40 Moderate persistent asthma, uncomplicated Sherry Peters M.D. 05/20/2019 J45.40 Moderate persistent asthma, uncomplicated Patyalda Moyaich , [employer] 05/20/2019 J31.0 Chronic rhinitis Sherry Peters M.D. 05/20/2019 J31.0 Chronic rhinitis Paty Cordero, [facility] 05/20/2019 J30.1 Allergic rhinitis due to pollen Sherry Peters M.D. 05/20/2019 J30.1 Allergic rhinitis due to pollen Patyalda Cordero, [facility] 05/20/2019 J30.81 Allergic rhinitis due to animal (cat) (dog) Sherry Peters M.D. hair and dander 05/20/2019 J30.81 Allergic rhinitis due to animal (cat) (dog) [facility] hair [facility]ander 04/06/2019 J30.89 Other allergic rhinitis Sherry Peters M.D. 04/06/2019 J45.40 Moderate persistent asthma, uncomplicated Sherry Peters M.D. 04/06/2019 J31.0 Chronic rhinitis Sherry Peters M.D. 03/17/2019 J30.89 Other allergic rhinitis Sherry Peters M.D. 03/17/2019 J30.89 Other allergic rhinitis Paty Cordero, [facility] 03/17/2019 J45.40 Moderate persistent asthma, uncomplicated Sherry Peters M.D. 03/17/2019 J45.40 Moderate persistent asthma, uncomplicated Patyalda Cordero , [employer] 03/17/2019 J31.0 Chronic rhinitis Sherry Peters M.D. 03/17/2019 J31.0 Chronic rhinitis Paty Uldrich, [employer] 03/12/2019 J30.89 Other allergic rhinitis Sherry Peters M.D. 03/12/2019 J30.89 Other allergic rhinitis Paty Uldrich, [employer] 03/12/2019 J30.1 Allergic rhinitis due to pollen Sherry Peters M.D. 03/12/2019 J30.1 Allergic rhinitis due to pollen Paty Uldrich, [employer] 02/08/2019 J45.41 Moderate persistent asthma with (acute) Sherry Peters M.D. exacerbation 02/08/2019 J45.41 Moderate persistent asthma with (acute) Sherry Peters M.D. exacerbation 02/08/2019 J45.40 Moderate persistent asthma, uncomplicated Sherry Peters M.D. 02/08/2019 J45.41 Moderate persistent asthma with (acute) Paty Uldrich, [employer] exacerbation 02/08/2019 J45.40 Moderate persistent asthma, uncomplicated Sherry Peters M.D. 02/08/2019 J45.40 Moderate persistent asthma, uncomplicated Paty Uldrich , [employer] 02/08/2019 J30.89 Other allergic rhinitis Sherry Peters M.D. 02/08/2019 J30.89 Other allergic rhinitis Paty Uldrich, [employer] 02/08/2019 J30.1 Allergic rhinitis due to pollen Sherry Peters M.D. 02/08/2019 J30.1 Allergic rhinitis due to pollen Paty Uldrich, [employer] 02/08/2019 J32.8 Other chronic sinusitis Paty Uldrich, [employer] 01/15/2019 J45.40 Moderate persistent asthma, uncomplicated Sherry Peters M.D. 01/15/2019 J30.89 Other allergic rhinitis Sherry Peters M.D. 01/15/2019 J30.1 Allergic rhinitis due to pollen Sherry Peters M.D. 01/15/2019 J32.8 Other chronic sinusitis Sherry Peters M.D. 01/04/2019 J45.40 Moderate persistent asthma, uncomplicated Sherry Peters M.D. 01/04/2019 J45.40 Moderate persistent asthma, uncomplicated Paty Cordero , [employer] 01/04/2019 J30.89 Other allergic rhinitis Sherry Peters M.D. 01/04/2019 J30.89 Other allergic rhinitis Paty CorderoSILVIA-C 01/04/2019 J06.9 Acute upper respiratory infection, Sherry Peters M.D. unspecified 01/04/2019 J06.9 Acute upper respiratory infection, Paty CorderoOLINDAP-C unspecified Plan of Treatment Future Appointment(s):08/10/2019 11:40 am - Sherry [facility] M.D. at [facility]06/25/2019 - Sherry Peters M.D.J30.89 Other allergic qteeqqquU13.2 Other seasonal allergic kpamynbyS88.81 Allergic rhinitis due to animal (cat) ( dog) hair and nljemuE74.40 Moderate persistent asthma, uncomplicatedNew Medication:Levocetirizine Dihydrochloride 5 mgRecommendations:Refrain from wearing perfumes/scented colognes while visiting our office. continue Symbicort - poz676/4.5 2 puffs twice daily x 2 weeks, then reduce to 80/4.5 2 puffs twice daily; rinse mouth after use Use Albuterol 2 puffs every 4 hours as needed for cough, wheezing shortness of breath or chest tightness OR 15 mins prior to exercise. Call if using >2x/week aside from pre-exercise. start Levocetirizine 5 mg once daily (stop Zyrtec) continue Astelin 0.15 2 inhalations 2x/day continue Flonase sensimist 2 sprays to each nostril once daily Continue strict avoidance of shellfish. Refer to your emergency plan in case of accidental ingestion/exposure. EpiPen pt has; indications for use reviewed and technique demonstrated Refer to [email or web address] for further information. do not recommend IT continue ENT, rheumatology, PCP f/u Functional Status Description No Information Available Mental Status Description No Information Available Referrals Description No Information Available
--- OUTSIDE RECORDS SUMMARY | 2019-07-01 11:00 | XMS REPORT | Summary of Care ---
:1985 Author Organization [facility] Address [address] [place] [address] Care Team Providers Name Role Phone Rae Tijerina INSURANCE SALESPERSON Primary Care Provider Reason for Referral Consultation (Routine) Status Reason Specialty Diagnoses / Referred By Referred To Procedures Contact Contact Open Specialty Sleep Medicine Diagnoses Insomnia, unspecified type Fatigue, unspecified type Gage Bradley, [facility] MD PhD Hospital Required [address] [place] [address] 2nd Floor [address] [place], [place] [address] [address] [place], [place] Phone: [phone] Phone: Email: Fax: [email or web address] [phone] du Scheduling Instructions PLEASE NOTE: If "MSLT" is selected from the "Study Type" below, then a "Comprehensive Polysomnography (in-Center)" must be ordered as well. Reason for Visit Reason Comments New Patient Diagnostic Medical (Routine) Status Reason Specialty Diagnoses / Referred By Referred To Contact Procedures Contact Open Pulmonology Diagnoses Sleep apnea-like behavior Heike Mcguire MD Pulmonology [address] [place] [address] Provider-Based [address] [address] 2nd Floor, [address] Phone: [place], [place] [phone] Encounter Details Date Type Department Care Team Description 06/01/2019 Office Visit [facility] at Gage Bradley MD Insomnia, unspecified type (Primary Dx); Counts Include [address] [facility] PhD Fatigue, unspecified type [place] [address] [facility] [address] [facility] 2nd Floor [address], [address] [place] [id number] [phone] Allergies Active Allergy Reactions Severity Noted Date Comments Pioglitazone Hydrochloride Hives 08/25/2012 Alprazolam Other (See Comments) Low 08/25/2012 Amitriptyline Itching 01/16/2019 Amitriptyline Hcl 08/25/2012 Amoxicillin Hives, Anaphylaxis High 08/25/2012 Donepezil Hydrochloride 08/25/2012 Bactrim Nausea And Vomiting Medium 08/25/2012 Bee Venom Anaphylaxis High 11/20/2017 Dicyclomine Hcl Nausea Only 10/02/2018 Bupropion 01/16/2019 Butalbital 08/25/2012 Cefaclor 01/16/2019 Cefadroxil 08/25/2012 Cefdinir Hives Medium 08/25/2012 Cephalexin 01/16/2019 Clarithromycin 08/25/2012 Clindamycin 01/16/2019 Clindamycin Hcl 08/25/2012 Clindamycin Hcl 08/25/2012 Codeine Nausea And Vomiting 04/28/2012 Codeine Hydrobromide Nausea And Vomiting Low 08/25/2012 Duloxetine Hcl 08/25/2012 Desogestrel 01/16/2019 Desogestrel-Ethinyl 08/25/2012 Estradiol Donepezil 08/25/2012 Doxycycline 08/25/2012 Drospirenone 01/16/2019 Duloxetine 01/16/2019 Amitriptyline Hcl 08/25/2012 Eletriptan 01/16/2019 Eletriptan Hydrobromide 08/25/2012 Escitalopram 01/16/2019 Ethinyl Estradiol 01/16/2019 Fluoxetine 01/16/2019 Gabapentin 04/28/2012 Lips and face turned purple. Hydrocodone 08/25/2012 Hydrocodone-Acetaminophen 04/28/2012 Sees flashing lights Ibuprofen Shortness Of Breath High 08/25/2012 Ibuprofen Medium 07/07/2012 Difficulty with breathing. Able to take ecxedrin. Sumatriptan Base Anaphylaxis High 08/25/2012 Lamotrigine 08/25/2012 Levofloxacin In D5w 01/16/2019 Levofloxacin 08/25/2012 Levofloxacin 08/25/2012 Patient has tolerated cipro [place] 01/16/2019 Loratadine 08/25/2012 Rizatriptan Benzoate 08/25/2012 Meloxicam 08/25/2012 Metformin 01/16/2019 Metformin And Related Diarrhea Low 08/25/2012 Metoclopramide 08/25/2012 Metoclopramide Hcl 08/25/2012 Naproxen 01/16/2019 Norethin-Eth Estrad 08/25/2012 Biphasic Norethindrone 01/16/2019 Norgestimate-Eth Estradiol 08/25/2012 Nutritional Supplements Rash Low 04/28/2012 Nutritional Supplements Rash Low 04/28/2012 Penicillins 01/03/2012 Pioglitazone 08/25/2012 Pregabalin Anaphylaxis High 04/28/2012 Lips and face turned purple Propranolol 08/25/2012 Red Dye 01/16/2019 Eletriptan Hydrobromide 08/25/2012 Rizatriptan 01/16/2019 Rizatriptan Benzoate 08/25/2012 Sertraline Hcl 08/25/2012 Sertraline Hcl 08/25/2012 Norgestimate-Eth Estradiol 08/25/2012 Sulfa Antibiotics Hives Medium 04/28/2012 Breathing problems Sulfamethoxazole 01/16/2019 Sulfamethoxazole-Trimethop 08/25/2012 rim Sumatriptan 08/25/2012 Sumatriptan-Naproxen 08/25/2012 Sodium Tegaderm 04/19/2015 Topiramate 08/25/2012 Topiramate 08/25/2012 Tramadol Other (See Comments) Low 04/28/2012 Gets angry Trazodone 01/16/2019 Trazodone And Nefazodone 08/25/2012 Trimethoprim 01/16/2019 Venlafaxine 01/16/2019 Lecithin-Isopropyl Nausea And Vomiting 01/19/2019 Palmitate Midazolam High 04/09/2019 Extreme dizziness/nausea Hydrocodone-Acetaminophen 04/28/2012 Sees flashing lights Vinyl Ether 01/16/2019 Drospirenone-Ethinyl 08/25/2012 Estradiol Zolmitriptan 08/25/2012 Zomig 08/25/2012 documented as of this encounter (statuses as of 06/07/2019) Medications Medication Sig Dispensed Refills Start End Date Status Date Multiple Vitamin Take 1 tablet by 0 Active (MULTIVITAMIN PO) mouth daily. Calcium Take by mouth. 0 Active Citrate-Vitamin D (CALCIUM + D PO) EPINEPHrine (EPIPEN 0 Active 1:1000) 0.3 8 MG/0.3ML SOAJ Tiotropium [place] Inhale 1.25 mcg 0 Active Monohydrate into the lungs (SPIRIVA RESPIMAT) 1.25 MCG/ACT AERS albuterol (VENTOLIN Inhale into the 0 Active HFA) 108 (90 Base) lungs 8 MCG/ACT inhaler budesonide-formoter Inhale into the 0 Active ol (SYMBICORT) lungs 80-4.5 MCG/ACT inhaler fluticasone 2 sprays by Nasal 16 g 12 01/31/20 Active (FLONASE) 50 route Two Times 9 20 MCG/ACT nasal spray Daily ondansetron Take 1 tablet by 45 tablet 6 Active (ZOFRAN-ODT) 4 MG mouth every 8 9 disintegrating (eight) hours as tabletIndications: needed for Nausea and vomiting Nausea in adult GLUMETZA 500 MG 24 Take 1 tablet by 30 tablet 11 02/11/20 Active hr mouth daily with 9 20 tabletIndications: breakfast Patient PCOS (polycystic needs ovarian syndrome) spear fisher Amneal metroNIDAZOLE 1 applicator 70 g 2 Active (METROGEL) 0.75 % vaginally every 9 vaginal night for 5 gelIndications: BV nights (bacterial vaginosis) progesterone Take 1 capsule by 30 capsule 11 02/17/20 Active (PROMETRIUM) 100 MG mouth nightly PRN 9 20 capsuleIndications: bleeding Menorrhagia with regular cycle pantoprazole Take 1 tablet by 60 tablet 3 03/22/20 Active (PROTONIX) 40 MG mouth Two Times 9 20 tabletIndications: Daily Gastric ulcer without hemorrhage or perforation, unspecified chronicity verapamil (CALAN) Take 1 tablet by 60 tablet 1 03/27/20 Active 40 MG tablet mouth Two Times 9 20 Daily azelastine 2 sprays by Nasal 30 mL 12 03/27/20 Active (ASTELIN) 0.1 % route Two Times 9 20 nasal Daily Use in each sprayIndications: nostril as Nasal congestion, directed Sinus congestion Sodium 50 mLs by Nasal 100 each 12 Active Chloride-Sodium route Two Times 9 Bicarb 2300-700 MG Daily PACK Apri 0.15-30 MG-MCG TAKE 1 TABLET BY 84 tablet 8 Active Oral Tablet MOUTH ONCE DAILY 9 (desogestrel-ethiny l estradiol)Indicatio ns: PCOS (polycystic ovarian syndrome) Terconazole 0.8 % INSERT ONE 20 g 0 Active Vaginal Cream APPLICATORFUL 9 (TERAZOL VAGINALLY AT 3)Indications: BEDTIME UNTIL Yeast vaginitis TUBE IS EMPTY Terconazole 0.8 % 1 applicatorful 20 g 0 06/07/20 Active Vaginal Cream into vagina 9 19 (TERAZOL nightly until 3)Indications: tube is empty. Yeast vaginitis ranitidine (ZANTAC) Take 1 tablet by 30 tablet 13 06/03/20 Discontinued 300 MG mouth nightly 9 19 tabletIndications: Gastric ulcer without hemorrhage or perforation, unspecified chronicity documented as of this encounter (statuses as of 06/07/2019) Active Problems Patient Care Coordination Note Pt discharged herself from [facility]. Future medication requests to be forwarded to Primary Care Provider. Problem Noted Date Insomnia 06/07/2019 Frequent infections 06/01/2019 Pain in both hands 06/01/2019 Pain in both feet 06/01/2019 Chronic sinusitis 01/14/2019 Prediabetes 10/05/2018 Chronic maxillary sinusitis 10/05/2018 Overview: Dr. Moran Iron deficiency anemia due to chronic blood loss 05/22/2018 Overview: Dr. Wilkins. Noy's thyroiditis 11/20/2016 HSIL (high grade squamous intraepithelial lesion) on Pap smear of cervix 07/12 Medication side effects 02/02/2013 LGSIL (low grade squamous intraepithelial dysplasia) 12/04/2012 Intractable migraine with aura 07/07/2012 Overview: Chiropracter PCOS (polycystic ovarian syndrome) 07/07/2012 Overview: Dr. Larkin Multiple thyroid nodules Overview: Transferred to [place] GERD (gastroesophageal reflux disease) Nasal sinus polyp Maxillary sinus mass Mucous retention cyst of maxillary sinus Acute recurrent sinusitis documented as of this encounter (statuses as of 06/07/2019) Resolved Problems Problem Noted Date Resolved Date Noy's thyroiditis 11/20/2016 10/05/2018 HGSIL on Pap smear of cervix 12/18/2012 10/05/2018 Abdominal pain 09/15/2012 10/05/2018 Dizziness 07/07/2012 10/05/2018 Migraine 10/05/2018 Fatigue 10/05/2018 documented as of this encounter (statuses as of 06/07/2019) Immunizations Name Administration Dates Next Due Influenza Quad IM Pres Free (0.5 mL dose) 05/07/2018 Pneumococcal Polysaccharide PPV23 11/02/2018 documented as of this encounter Social History Tobacco Use Types Packs/Day Years Used Date Former Smoker 2 Quit: 10/05/2009 Smokeless Tobacco: Never Used Comments: quit 2009 (was 1ppd x age 14) Alcohol Use Drinks/Week oz/Week Comments No quit 2009 Sex Assigned at Date Recorded Not on file Job Start Date Occupation Industry Not on file Not on file Not on file Travel History Travel Start Travel End No recent travel history available. documented as of this encounter Last Filed Vital Signs Vital Sign Reading Time Taken Comments Blood Pressure 142/89 06/01/2019 1:45 PM EST Pulse 91 06/01/2019 1:45 PM EST Temperature 37.3 06/01/2019 1:45 PM EST C (99.1 F) Respiratory Rate 16 06/01/2019 1:45 PM EST Oxygen Saturation 100% 06/01/2019 1:45 PM EST Inhaled Oxygen Concentration - - Weight 83.5 kg (184 lb) 06/01/2019 1:45 PM EST Height 167.6 cm (5' 6") 06/01/2019 1:45 PM EST Body Mass Index 29.7 06/01/2019 1:45 PM EST documented in this encounter Progress Notes Gage Bradley MD PhD - 06/01/2019 3:30 PM EST REASON FOR VISIT/CHIEF COMPLAINT: Insomnia Difficulties sleeping HISTORY OF PRESENTING ILLNESS/INTERIM HISTORY: - variable times of going to bed - anxiety, stressed with her school, - reports that she has had issues with poor sleep since age 4, also complains about possible restless leg syndrome, not every single night - variable times of falling asleep with some night staying up half the night and unable to fall asleep - on average sleeps approximately 6-9 hours - usually gets up at varying times as well - watches TV in her bedroom - fatigue during the day, no sleep attacks, sometimes excessive daytime fatigue , drinks 1 cup of coffee per day at the most, no red bull or energy drinks - no naps during the day - had nasal surgery in the past but since surgery healed no snoring - since July 2018 very stressful life due to commitments in college and homework PAST MEDICAL HISTORY: Past Medical History: Diagnosis Date Asthma Borderline diabetes Fatigue GERD (gastroesophageal reflux disease) Goiter Noy thyroiditis Migraine Polycystic ovarian syndrome Gastric ulcers Rheumatology evaluation for possible/questionable underlying autoimmune disease Past Surgical History: Procedure Laterality Date ESOPHAGOGASTRIC FUNDOPLICATION FOOT SURGERY Left 07/2015 removed a piece of bone, bone spurs. Dr. jeffery Hadley [place] CONIZATION CERVIX,LOOP ELECTRD N/A 07/19/2014 Procedure: LOOP Electrosurgical Excision Procedure per Dr Larkin; Surgeon: Myrna Larkin MD; Location: OR [facility]; Service: Gynecology; Laterality: N/A; [place] NASAL/SINUS NDSC TOTAL WITH SPHENOIDOTOMY Bilateral 01/14/2019 Procedure: Bilateral sinus surgery (sinus instruments and scopes, camera, tower , merocele, medtronic image guidance and debrider); Surgeon: Jasbir Moran MD; Location: OR ; Service: ENT; Laterality: Bilateral; CURRENT MEDICATION: Current Outpatient Medications on File Prior to Visit Medication Sig Dispense Refill albuterol (VENTOLIN HFA) 108 (90 Base) MCG/ACT inhaler Inhale into the lungs Apri 0.15-30 MG-MCG Oral Tablet (desogestrel-ethinyl estradiol) TAKE 1 TABLET BY MOUTH ONCE DAILY 84 tablet 8 azelastine (ASTELIN) 0.1 % nasal spray 2 sprays by Nasal route Two Times Daily Use in each nostril as directed 30 mL 12 budesonide-formoterol (SYMBICORT) 80-4.5 MCG/ACT inhaler Inhale into the lungs Calcium Citrate-Vitamin D (CALCIUM + D PO) Take by mouth. EPINEPHrine (EPIPEN 1:1000) 0.3 MG/0.3ML SOAJ fluticasone (FLONASE) 50 MCG/ACT nasal spray 2 sprays by Nasal route Two Times Daily 16 g 12 GLUMETZA 500 MG 24 hr tablet Take 1 tablet by mouth daily with breakfast Patient needs spear fisher Amneal 30 tablet 11 metroNIDAZOLE (METROGEL) 0.75 % vaginal gel 1 applicator vaginally every night for 5 nights 70 g 2 Multiple Vitamin (MULTIVITAMIN PO) Take 1 tablet by mouth daily. ondansetron (ZOFRAN-ODT) 4 MG disintegrating tablet Take 1 tablet by mouth every 8 (eight) hours as needed for Nausea 45 tablet 6 pantoprazole (PROTONIX) 40 MG tablet Take 1 tablet by mouth Two Times Daily 60 tablet 3 progesterone (PROMETRIUM) 100 MG capsule Take 1 capsule by mouth nightly PRN bleeding 30 capsule 11 ranitidine (ZANTAC) 300 MG tablet Take 1 tablet by mouth nightly 30 tablet 13 Sodium Chloride-Sodium Bicarb 2300-700 MG PACK 50 mLs by Nasal route Two Times Daily 100 each12 Terconazole 0.8 % Vaginal Cream (TERAZOL 3) INSERT ONE APPLICATORFUL VAGINALLY AT BEDTIME UNTIL TUBE IS EMPTY 20 g 0 Terconazole 0.8 % Vaginal Cream (TERAZOL 3) 1 applicatorful into vagina nightly until tube isempty. 20 g 0 Tiotropium [place] Monohydrate (SPIRIVA RESPIMAT) 1.25 MCG/ACT AERS Inhale 1.25 mcg into the lungs verapamil (CALAN) 40 MG tablet Take 1 tablet by mouth Two Times Daily 60 tablet 1 No current facility-administered medications on file prior to visit. ALLERGIES: Amoxicillin; Bee venom; Ibuprofen; Imitrex [sumatriptan base]; Pregabalin; Versed [midazolam]; Bactrim; Cefdinir; Ibuprofen [ibuprofen]; Sulfa antibiotics ; Actos [pioglitazone hydrochloride]; Amitriptyline; Amitriptyline hcl; Aricept [donepezil hydrochloride]; Bentyl [dicyclomine hcl]; Bupropion; Butalbital; Cefaclor; Cefadroxil; Cephalexin; Clarithromycin; Clindamycin; Clindamycin hcl; Clindamycin hcl; Codeine; Cymbalta [duloxetine hcl]; Desogestrel; Desogestrel- ethinyl estradiol; Donepezil; Doxycycline; Drospirenone; Duloxetine; Elavil [ amitriptyline hcl]; Eletriptan; Eletriptan hydrobromide; Escitalopram; Ethinyl estradiol; Fluoxetine; Gabapentin; Hydrocodone; Hydrocodone-acetaminophen; Lamictal [lamotrigine]; Levaquin [levofloxacin in d5w]; Levofloxacin; Levofloxacin; [place]; Loratadine; [place] [rizatriptan benzoate]; Meloxicam; Metformin; Metoclopramide; Metoclopramide hcl; Naproxen; Norethin-eth estrad biphasic; Norethindrone; Norgestimate-eth estradiol; Penicillins; Pioglitazone; Propranolol; Red dye; Relpax [eletriptan hydrobromide]; Rizatriptan; Rizatriptan benzoate; Sertraline hcl;Sertraline hcl; Sprintec [norgestimate-eth estradiol]; Sulfamethoxazole; Sulfamethoxazole-trimethoprim; Sumatriptan; Sumatriptan-naproxen sodium; Tegaderm; Topiramate; Topiramate; Trazodone; Trazodone and nefazodone; Trimethoprim; Venlafaxine; Versapro [lecithin- isopropyl palmitate]; Vicodin [hydrocodone-acetaminophen]; Vinyl ether; [place] [ drospirenone-ethinyl estradiol]; Zolmitriptan; Zomig; Alprazolam; Codeine hydrobromide; Metformin and related; Nutritional supplements; Nutritional supplements; andTramadol 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 PHYSICAL EXAMINATION: GENERAL: comfortable at rest, no acute distress VITAL SIGNS: Visit Vitals BP 142/89 (BP Location: Right arm, Patient Position: Sitting, Cuff size: Regular ) Pulse 91 Temp 37.3 C (99.1 F) (Oral) Resp 16 Ht 1.676 m (5' 6") Wt 83.5 kg (184 lb) SpO2 100% BMI 29.70 kg/m on room air HEENT: no cervical or supraclavicular lymphadenopathy, no thyromegaly, moist oral mucous membranes, no oral thrush or lesions, trachea mid-line, mallampati grade IV CVS: heart sounds normal/without added audible sounds, calves soft, non-tender, no ankle edema RESPIRATORY: no digital clubbing, chest clear to auscultation GIT/ABDOMEN: soft, non-tender, no palpable masses/organomegaly MUSCULOSKELETAL: no obvious joint swelling/ gross deformities/ effusions or overlying redness SKIN: no rashes NEUROLOGICAL: awake and alert with no gross focal neurological deficit PSYCHIATRIC: grossly normal affect, mood, mentation and orientation PERTINENT (INTERIM) INVESTIGATIONS: n/a ASSESSMENT AND RECOMMENDATIONS/PLAN: Mrs. Paula is a 34 year old woman with chronic pain currently being further evaluated by rheumatology for possible underlying occult connective tissue/ autoimmune disease with insomnia and poor sleep as well as anxiety with complaint of chronic fatigue and EDF for which I have requested in-center polysomnogram to further evaluate for any underlying sleep disorder including sleep apnea given that shehas a family history of sleep apnea on her father's side. 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 In addition, we also discussed driving precautions including to refrain from driving should she feel excessively tired and/or be unable to start on treatment for sleep apnea in case of a positive sleep study given increased risk of incurring an accident while driving with untreated sleep apnea. She is scheduled to return to this clinic for review in 3 months' time. Meanwhile she will be initiated on PAP-therapy should her sleep study be positive. I spent 45 minutes in [id number] consultation with the patient today of which at least half were spent counseling on the above outlined diagnosis and management plan with all questions answered to the patient's satisfaction. documented in this encounter Plan of Treatment Date Type Specialty Care Team Description 06/22/2019 Office Visit Rheumatology Jeannie Morrison MD [address] [facility] 2nd [place] [address] [phone] 07/16/2019 Office Visit Hematology and Oncology Missy Peterson MD [address] [place] [address] [phone] Name Type Priority Associated Diagnoses Order Schedule Ambulatory referral Outpatient Referral Routine Insomnia, Ordered: to Sleep Studies unspecified type 06/01/2019 Fatigue, unspecified type Health Maintenance Due Date Last Done Comments MMR Vaccines (1 of 1 - 01/07/1985 Standard series) DTaP,Tdap,and Td Vaccines 01/07/1991 (1 - Tdap) Varicella Vaccines (1 of 2 01/07/1997 - 13+ 2-dose series) Influenza Vaccine 04/20/2019 08/31/2018, 05/07/2018 HIV Screening 10/06/2019 Postponed from 01/07/1997 (Patient declined) Cervical Cancer Screening 5 10/13/2023 10/12/2018, 03/01/2016, years 01/16/2015, Additional history exists Pneumococcal Vaccine: 65+ 01/07/2049 11/02/2018 Years (1 of 2 - PCV13) Pneumococcal Vaccine: Aged Out 11/02/2018 No longer eligible Pediatrics (0 to 5 Years) based on patient's age and At-Risk Patients (6 to to complete this topic 64 Years) HIB Vaccines Aged Out No longer eligible based on patient's age to complete this topic Hepatitis A Vaccines Aged Out No longer eligible based on patient's age to complete this topic Hepatitis B Vaccines Aged Out No longer eligible based on patient's age to complete this topic IPV Vaccines Aged Out No longer eligible based on patient's age to complete this topic documented as of this encounter Implants Implanted Type Area Loan Servicing Representative Device Shelf Expiration Model / Serial Identifier Date / Lot Graft Allomax 2cm X 4cm. - [id number] Nose [facility] [place] [place] 04/16/2023 [id number] / Implanted: Qty: 1 on 01/14/2019 by Jasbir Moran MD at [facility] [id number] / [id number] documented as of this encounter Results Not on filedocumented in this encounter Visit Diagnoses Diagnosis Insomnia, unspecified type - Primary Fatigue, unspecified type documented in this encounter
--- OUTSIDE RECORDS SUMMARY | 2019-07-01 11:00 | XMS REPORT | Summary of Care ---
:1985 Author Organization [facility] Address [address] [place] [address] Care Team Providers Name Role Phone Pcp, No Primary Care Provider Unavailable Reason for Visit Reason Comments Sore Throat Encounter Details Date Type Department Care Team Description 06/19/2019 Emergency EMERGENCY DEPARTMENT [facility] Sore throat (Primary Dx) [address] [place] [address] Allergies Active Allergy Reactions Severity Noted Date [...] 08/25/2012 Levofloxacin 08/25/2012 Patient has tolerated cipro [place] 01/16/2019 Loratadine 08/25/2012 Rizatriptan Benzoate 08/25/2012 Meloxicam [...] as of this encounter (statuses as of 06/19/2019) Medications Medication Sig Dispensed Refills Start Date End Date Status Multiple Vitamin Take 1 tablet by 0 Active (MULTIVITAMIN PO) mouth daily. Calcium Take by mouth. 0 Active Citrate-Vitamin D (CALCIUM + D PO) EPINEPHrine (EPIPEN 0 11/03/2017 Active 1:1000) 0.3 MG/0.3ML SOAJ Tiotropium [place] Inhale 1.25 mcg 0 Active Monohydrate (SPIRIVA into the lungs RESPIMAT) 1.25 MCG/ACT AERS albuterol (VENTOLIN Inhale into the 0 08/12/2017 Active HFA) 108 (90 Base) lungs MCG/ACT inhaler budesonide-formotero Inhale into the 0 Active l (SYMBICORT) 80-4.5 lungs MCG/ACT inhaler fluticasone 2 sprays by Nasal 16 g 12 02/01/2019 Active (FLONASE) 50 MCG/ACT route Two Times 0 nasal spray Daily ondansetron Take 1 tablet by 45 tablet 6 02/11/2019 Active (ZOFRAN-ODT) 4 MG mouth every 8 disintegrating (eight) hours as tabletIndications: needed for Nausea Nausea and vomiting in adult GLUMETZA 500 MG 24 Take 1 tablet by 30 tablet 11 02/12/2019 Active hr mouth daily with 0 tabletIndications: breakfast Patient PCOS (polycystic needs numerical control operator ovarian syndrome) Amneal metroNIDAZOLE 1 applicator 70 g 2 02/17/2019 Active (METROGEL) 0.75 % vaginally every vaginal night for 5 nights gelIndications: BV (bacterial vaginosis) progesterone Take 1 capsule by 30 capsule 11 02/17/2019 Active (PROMETRIUM) 100 MG mouth nightly PRN 0 capsuleIndications: bleeding Menorrhagia with regular cycle pantoprazole Take 1 tablet by 60 tablet 3 03/23/2019 Active (PROTONIX) 40 MG mouth Two Times 0 tabletIndications: Daily Gastric ulcer without hemorrhage or perforation, unspecified chronicity azelastine (ASTELIN) 2 sprays by Nasal 30 mL 12 03/29/2019 Active 0.1 % nasal route Two Times 0 sprayIndications: Daily Use in each Nasal congestion, nostril as directed Sinus congestion Sodium 50 mLs by Nasal 100 each 12 05/21/2019 Active Chloride-Sodium route Two Times Bicarb 2300-700 MG Daily PACK Apri 0.15-30 MG-MCG TAKE 1 TABLET BY 84 tablet 8 05/27/2019 Active Oral Tablet MOUTH ONCE DAILY (desogestrel-ethinyl estradiol)Indication s: PCOS (polycystic ovarian syndrome) Terconazole 0.8 % INSERT ONE 20 g 0 05/31/2019 Active Vaginal Cream APPLICATORFUL (TERAZOL VAGINALLY AT 3)Indications: Yeast BEDTIME UNTIL TUBE vaginitis IS EMPTY raNITIdine HCl 300 TAKE 1 TABLET BY 90 tablet 10 06/03/2019 Active MG Oral Tablet MOUTH AT BEDTIME (ZANTAC)Indications: Gastric ulcer without hemorrhage or perforation, unspecified chronicity Verapamil HCl 40 MG TAKE 1 TABLET BY 180 tablet 1 06/15/2019 Active Oral Tablet (CALAN) MOUTH TWICE A DAY Ciprofloxacin HCl Take 1 tablet by 10 tablet 0 06/16/2019 Active 500 MG Oral Tablet mouth Two Times 9 (CIPRO) Daily for 5 days documented as of this encounter (statuses as of 06/19/2019) Active Problems Patient Care Coordination Note Pt discharged herself from [facility] [place]. 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 10/05/2018 HGSIL on Pap smear of cervix 12/18/2012 10/05/2018 Abdominal pain 09/15/2012 10/05/2018 Dizziness 07/07/2012 10/05/2018 Migraine 10/05/2018 Fatigue 10/05/2018 documented as of this encounter (statuses as of 06/19/2019) Immunizations Name Administration Dates Next Due Influenza Quad IM Pres Free (0.5 mL dose) 05/07/2018 Pneumococcal Polysaccharide PPV23 11/02/2018 documented as of this encounter Social History Tobacco Use Types Packs/Day Years Used Date Former Smoker 0 2 Quit: 10/05/2009 Smokeless Tobacco: Never Used [...] Sign Reading Time Taken Comments Blood Pressure 108/73 06/19/2019 2:42 PM EST Pulse 82 06/19/2019 2:42 PM EST Temperature 37 06/19/2019 2:42 PM EST C (98.6 F) Respiratory Rate 18 06/19/2019 2:42 PM EST Oxygen Saturation 100% 06/19/2019 2:42 PM EST Inhaled Oxygen Concentration - - Weight 81.6 kg (180 lb) 06/19/2019 12:37 PM EST Height 170.2 cm (5' 7") 06/19/2019 12:37 PM EST Body Mass Index 28.19 06/19/2019 12:37 PM EST documented in this encounter Discharge Instructions Rosmery Blas PA - 06/19/2019Rapid strep testing negative. Symptoms consistent with viral sore throat. No need for antibiotics. Flu testing negative. Recommend ibuprofen or tylenol for pain control. Warm salt water gargles. Return to the emergency room with any worsening sore throat, trouble controlling secretions, muffled voice, spiking fever. Follow-up with the primary care doctor within 1 week. documented in this encounter Plan of Treatment Date Type Specialty Care Team Description 06/22/2019 Office Visit Rheumatology Jeannie Morrison MD [address] [facility] [address] [place] [address] [phone] 06/28/2019 Clinical Support Sleep Medicine 07/13/2019 Office Visit Family Medicine Mary Freeman NP [address] [address] [phone] 07/16/2019 Office Visit Hematology and Oncology Missy Peterson MD [address] [place] [address] [phone] Name Type Priority Associated Diagnoses Date/Time Throat culture Microbiology Routine 06/19/2019 1:19 PM EST Name Type Priority Associated Diagnoses Order Schedule Throat culture Microbiology Routine Once for 1 Occurrences starting 06/19/2019 until 06/19/2019 Health Maintenance Due Date Last Done Comments [...] of this encounter Implants Implanted Type Area Window Dresser Device Shelf Expiration Model / Serial Identifier Date / Lot Graft Allomax 2cm X 4cm. - [id number] Nose [employer] 04/16/2023 [id number] / Implanted: Qty: 1 on 01/14/2019 by Jasbir Moran MD at OR [id number] / [id number] documented as of this encounter Procedures Procedure Name Priority Date/Time Associated Diagnosis Comments RAPID STREP STAT 06/19/2019 1:19 PM Results for this EST procedure are in the results section. RESPIRATORY PANEL STAT 06/19/2019 1:19 PM Results for this EST procedure are in the results section. documented in this encounter Results Respiratory Panel (06/19/2019 1:19 PM EST) Special Request None [facility] PATHOLOGY Culture/Results Polymerase chain reaction is NEGATIVE for Influenza A H1, H3 and 2009 H1 viruses, Influenza B virus, Respiratory syncytial virus, Human metapneumovirus, Parainfluenza virus 1, 2, 3 and 4, Adenovirus, Rh [facility] inovirus/Enterovirus, Coronavirus HKU1, NL63, OC43, Univ [facility] and 229E, Bordetella pertussis, Mycoplasma pneumoniae and Chlamydia pneumoniae. Pathology Specimen Nasopharyngeal Swab Performing Organization Address [facility] Phone Number [facility] [address] [place] [address] [phone] [facility] [address] [place] [address] Pathology Rapid Strep (06/19/2019 1:19 PM EST) Special Request None [facility] Culture/Results Negative for Streptococcus [facility] A antigen by [facility] immunochromatographic Pathology assay, throat culture pending. Specimen Throat Swab Performing Organization Address [facility]ode Phone Number [facility] [address] [place] [address] [facility] [address] [place] [address] Pathology documented in this encounter Visit Diagnoses Diagnosis Sore throat - Primary Acute pharyngitis documented in this encounter
--- OUTSIDE RECORDS SUMMARY | 2019-07-01 11:00 | XMS REPORT | Summary of Care ---
:1985 Author Organization [facility] Address [address] [place] [address] Care Team Providers Name Role Phone Pcp, No Primary Care Provider Unavailable Reason for Visit Reason Comments Follow-up Joint Pain Encounter Details Date Type Department Care Team Description 06/22/2019 Office Visit [facility] Jeannie Morrison MD Frequent infections (Primary Dx); [facility] [place] [address] [facility] in [facility]; [facility] 2nd Floor Pain in both hands [address] [place] [address] 2nd Floor, [address] [place] [address] Allergies Active Allergy Reactions Severity Noted Date [...] 08/25/2012 Levofloxacin 08/25/2012 Patient has tolerated cipro [place] 01/16/2019 Loratadine 08/25/2012 Rizatriptan Benzoate 08/25/2012 Meloxicam [...] as of this encounter (statuses as of 06/22/2019) Medications Medication Sig Dispensed Refills Start Date End Date Status Multiple Vitamin Take 1 tablet by 0 Active (MULTIVITAMIN PO) mouth daily. Calcium Citrate-Vitamin Take by mouth. 0 Active D (CALCIUM + D PO) EPINEPHrine (EPIPEN 0 11/03/2017 Active 1:1000) 0.3 MG/0.3ML SOAJ Tiotropium [place] Inhale 1.25 mcg 0 Active Monohydrate (SPIRIVA into the lungs RESPIMAT) 1.25 MCG/ACT AERS albuterol (VENTOLIN Inhale into the 0 08/12/2017 Active HFA) 108 (90 Base) lungs MCG/ACT inhaler budesonide-formoterol Inhale into the 0 Active (SYMBICORT) 80-4.5 lungs MCG/ACT inhaler fluticasone (FLONASE) 2 sprays by Nasal 16 g 12 02/01/2019 01/31/20 Active 50 MCG/ACT nasal spray route Two Times 20 Daily ondansetron Take 1 tablet by 45 tablet 6 02/11/2019 Active (ZOFRAN-ODT) 4 MG mouth every 8 disintegrating (eight) hours as tabletIndications: needed for Nausea Nausea and vomiting in adult GLUMETZA 500 MG 24 hr Take 1 tablet by 30 tablet 11 02/12/2019 02/11/20 Active tabletIndications: PCOS mouth daily with 20 (polycystic ovarian breakfast Patient syndrome) 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 Amneal metroNIDAZOLE 1 applicator 70 g 2 02/17/2019 Active (METROGEL) 0.75 % vaginally every vaginal gelIndications: night for 5 nights BV (bacterial vaginosis) progesterone Take 1 capsule by 30 capsule 11 02/17/2019 02/17/20 Active (PROMETRIUM) 100 MG mouth nightly PRN 20 capsuleIndications: bleeding Menorrhagia with regular cycle pantoprazole (PROTONIX) Take 1 tablet by 60 tablet 3 03/23/2019 03/22/20 Active 40 MG mouth Two Times 20 tabletIndications: Daily Gastric ulcer without hemorrhage or perforation, unspecified chronicity azelastine (ASTELIN) 2 sprays by Nasal 30 mL 12 03/29/2019 03/27/20 Active 0.1 % nasal route Two Times 20 sprayIndications: Nasal Daily Use in each congestion, Sinus nostril as congestion directed Sodium Chloride-Sodium 50 mLs by Nasal 100 each 12 05/21/2019 Active Bicarb 2300-700 MG PACK route Two Times Daily Apri 0.15-30 MG-MCG TAKE 1 TABLET BY 84 tablet 8 05/27/2019 Active Oral Tablet MOUTH ONCE DAILY (desogestrel-ethinyl estradiol)Indications: PCOS (polycystic ovarian syndrome) Terconazole 0.8 % INSERT ONE 20 g 0 05/31/2019 Active Vaginal Cream (TERAZOL APPLICATORFUL 3)Indications: Yeast VAGINALLY AT vaginitis BEDTIME UNTIL TUBE IS EMPTY raNITIdine HCl 300 MG TAKE 1 TABLET BY 90 tablet 10 06/03/2019 Active Oral Tablet MOUTH AT BEDTIME (ZANTAC)Indications: Gastric ulcer without hemorrhage or perforation, unspecified chronicity Verapamil HCl 40 MG TAKE 1 TABLET BY 180 tablet 1 06/15/2019 Active Oral Tablet (CALAN) MOUTH TWICE A DAY Hydroxychloroquine Take 1 tablet by 60 tablet 3 06/22/2019 06/20/20 Active Sulfate 200 MG Oral mouth Two Times 20 Tablet Daily (PLAQUENIL)Indications: Pain in both hands documented as of this encounter (statuses as of 06/22/2019) Active Problems Patient Care Coordination Note Pt discharged herself from [facility]. Future medication requests to be forwarded [...] Larkin Multiple thyroid nodules Overview: Transferred to [place] GERD (gastroesophageal reflux disease) Nasal sinus polyp Maxillary sinus mass Mucous retention cyst of maxillary sinus Acute recurrent sinusitis documented as of this encounter (statuses as of 06/22/2019) Resolved Problems Problem Noted Date Resolved Date Noy's thyroiditis 11/20/2016 10/05/2018 HGSIL on Pap smear of cervix 12/18/2012 10/05/2018 Abdominal pain 09/15/2012 10/05/2018 Dizziness 07/07/2012 10/05/2018 Migraine 10/05/2018 Fatigue 10/05/2018 documented as of this encounter (statuses as of 06/22/2019) Immunizations Name Administration Dates Next Due Influenza [...] Sign Reading Time Taken Comments Blood Pressure 158/88 06/22/2019 3:47 PM EST Pulse 113 06/22/2019 3:47 PM EST Temperature 37.4 06/22/2019 3:47 PM EST C (99.3 F) Respiratory Rate 16 06/22/2019 3:47 PM EST Oxygen Saturation - - Inhaled Oxygen Concentration - - Weight 86.8 kg (191 lb 6.4 oz) 06/22/2019 3:47 PM EST Height 170.2 cm (5' 7.01") 06/22/2019 3:47 PM EST Body Mass Index 29.97 06/22/2019 3:47 PM EST documented in this encounter Progress Notes Jeannie Morrison MD - 06/22/2019 3:30 PM EST Subjective: Patient ID: Shannan Paula is a 34 y.o. female. Chief Complaint: f/u for joint pains, chronic infections HPI Shannan is here for a follow up for joint pains, chronic infections. Serology demonstrates JIA speckled 50. All other serology negative. She has seen allergy and immunology and she plans to get allergy shots. She recently diagnosed with a virus and not feeling well. She has joint pains in her hands and feet. She has had these joint pains since 2008. She does have joint swelling in the hands on and off. Joint pains are on and off. The joint pains are worst with movement and worst at night. She has taken meloxicam, tylenol. meloxicam does help but she does have ulcers and can not take NSAIDs. Denies any photosensitivity, nasal ulcers. +mouth sores. +rashes on and off. No alopecia. +dry eyes/dry mouth. +raynaud's. No history of DVT/PE. 1 miscarriage in 1st trimester. No history of gout or skin psoriasis. She has a history of chronic infections (ear infections, sinus infections, kidney infections). She has multiple medication allergies. Past Medical History: Diagnosis Date Asthma Borderline diabetes Fatigue GERD (gastroesophageal reflux disease) Goiter Noy thyroiditis Migraine Polycystic ovarian syndrome Past Surgical History: Procedure Laterality Date ESOPHAGOGASTRIC FUNDOPLICATION FOOT SURGERY Left 07/2015 removed a piece of bone, bone spurs. Dr. jeffery Hadley [place] CONIZATION CERVIX,LOOP ELECTRD N/A 07/19/2014 Procedure: LOOP Electrosurgical Excision Procedure per Dr Larkin; Surgeon: Myrna Larkin MD; Location: [address]; Service: Gynecology; Laterality: N/A; UT NASAL/SINUS NDSC TOTAL WITH SPHENOIDOTOMY Bilateral 01/14/2019 Procedure: Bilateral sinus surgery (sinus instruments and scopes, camera, tower , merocele, medtronic image guidance and debrider); Surgeon: Jasbir Moran MD; Location: [facility]; Service: ENT; Laterality: Bilateral; Family History Problem Relation Age of Onset Migraines Brother Personality disorder Brother Mental illness Brother Mental illness Mother Intellectual Disability Mother Mental illness Father Cancer Paternal Grandmother Lung Cancer Alpha 1 antitrypsin. Social History Tobacco Use Smoking status: Former Smoker Packs/day: 0.00 Years: 2.00 Pack years: 0.00 Last attempt to quit: 10/05/2009 Years since quittin.7 Smokeless tobacco: Never Used Tobacco comment: quit 2009 (was 1ppd x age 14) Substance Use Topics Alcohol use: No Comment: quit 2009 Drug use: No Allergies Allergen Reactions Amoxicillin Hives and Anaphylaxis Bee Venom Anaphylaxis Ibuprofen Shortness Of Breath Imitrex [Sumatriptan Base] Anaphylaxis Pregabalin Anaphylaxis Lips and face turned purple Versed [Midazolam] Extreme dizziness/nausea Bactrim Nausea And Vomiting Cefdinir Hives Ibuprofen [Ibuprofen] Difficulty with breathing. Able to take ecxedrin. Sulfa Antibiotics Hives Breathing problems Actos [Pioglitazone Hydrochloride] Hives Amitriptyline Itching Amitriptyline Hcl Aricept [Donepezil Hydrochloride] Bentyl [Dicyclomine Hcl] Nausea Only Bupropion Butalbital Cefaclor Cefadroxil Cephalexin Clarithromycin Clindamycin Clindamycin Hcl Clindamycin Hcl Codeine Nausea And Vomiting Cymbalta [Duloxetine Hcl] Desogestrel Desogestrel-Ethinyl Estradiol Donepezil Doxycycline Drospirenone Duloxetine Elavil [Amitriptyline Hcl] Eletriptan Eletriptan Hydrobromide Escitalopram Ethinyl Estradiol Fluoxetine Gabapentin Lips and face turned purple. Hydrocodone Hydrocodone-Acetaminophen Sees flashing lights Lamictal [Lamotrigine] Levaquin [Levofloxacin In D5w] Levofloxacin Levofloxacin Patient has tolerated cipro Sisters Loratadine Maxalt [Rizatriptan Benzoate] Meloxicam Metformin Metoclopramide Metoclopramide Hcl Naproxen Norethin-Eth Estrad Biphasic Norethindrone Norgestimate-Eth Estradiol Penicillins Pioglitazone Propranolol Red Dye Relpax [Eletriptan Hydrobromide] Rizatriptan Rizatriptan Benzoate Sertraline Hcl Sertraline Hcl Sprintec [Norgestimate-Eth Estradiol] Sulfamethoxazole Sulfamethoxazole-Trimethoprim Sumatriptan Sumatriptan-Naproxen Sodium Tegaderm Topiramate Topiramate Trazodone Trazodone And Nefazodone Trimethoprim Venlafaxine Versapro [Lecithin-Isopropyl Palmitate] Nausea And Vomiting Vicodin [Hydrocodone-Acetaminophen] Sees flashing lights Vinyl Ether [place]abella [Drospirenone-Ethinyl Estradiol] Zolmitriptan Zomig Alprazolam Other (See Comments) Codeine Hydrobromide Nausea And Vomiting Metformin And Related Diarrhea Nutritional Supplements Rash Nutritional Supplements Rash Tramadol Other (See Comments) Gets angry Current Outpatient Medications Medication Sig Dispense Refill albuterol (VENTOLIN HFA) [...] by mouth daily with breakfast 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 Amneal 30 tablet 11 metroNIDAZOLE (METROGEL) 0.75 [...] mouth nightly PRN bleeding 30 capsule 11 raNITIdine HCl 300 MG Oral Tablet (ZANTAC) TAKE 1 TABLET BY MOUTH AT BEDTIME 90 tablet 10 Sodium Chloride-Sodium Bicarb 2300-700 MG PACK 50 mLs by Nasal route Two Times Daily 100 each12 Terconazole 0.8 % Vaginal Cream (TERAZOL 3) INSERT ONE APPLICATORFUL VAGINALLY AT BEDTIME UNTIL TUBE IS EMPTY 20 g 0 Tiotropium [place] Monohydrate (SPIRIVA RESPIMAT) 1.25 MCG/ACT AERS Inhale 1.25 mcg into the lungs Verapamil HCl 40 MG Oral Tablet (CALAN) TAKE 1 TABLET BY MOUTH TWICE A DAY 180 tablet 1 No current facility-administered medications for this visit. Review of Systems Constitutional: +fatigue, fevers HENT: +sore throat, frequent sinus infections Eyes: Negative for blurred vision, double vision, pain and discharge. Respiratory: +shortness of breath secondary to asthma Cardiovascular: Negative for lower extremity swelling, chest pain and palpitations. Gastrointestinal: Negative for heartburn, nausea, vomiting, abdominal pain constipation, and diarrhea. Genitourinary: +nausea, diarrhea and vomiting improved Musculoskeletal: +joint pains and joint swelling Skin: +rashes Neurological: Negative for dizziness, sensory change, speech change, focal weakness, loss of consciousness, tingling/numbness and weakness. Endo/Heme/Allergies: Does not bruise/bleed easily. Objective: Vitals: 06/22/19 1547 BP: 158/88 Pulse: (!) 113 Resp: 16 Temp: 37.4 C (99.3 F) Physical Exam Constitutional: Alert and oriented x3, no acute distress HEENT: Normocephalic, atraumatic, PERRLA Cardiovascular: Regular rate and rhythm, S1 normal and S2 normal. Lungs: Clear to auscultation b/l. No wheezing Abdomen: Soft, non-tender Musculoskeletal: no synovitis Neurological: alert and oriented to person, place, and time. Extremities: no edema Skin: Skin is warm and dry. Assessment: Shannan is here for a follow up for joint pains, chronic infections. Serology demonstrates JIA speckled 50. All other serology negative. She has seen allergy and immunology and she plans to get allergy shots. Plan: 1. Joint pains with a history of chronic infections and multiple medication allergies -serology demonstrates JIA speckled 50, all other serology negative. Regarding chronic infections, immunoglobulin levels and complements normal. -Possible mild connective tissue disease. Will start Plaquenil 200mg BID. Side effect including corneal/retinal deposits, neuropathy, myopathy explained. -Recommend follow up with pcp, investment counselor and to do sleep study as planned -Follow up in 3 months - Activities as tolerated. - Fall precautions emphasized. - Diet: low carb/low fat, more greens/vegetables, adequate hydration - Encouraged to maintain good sleep hygiene - Continue other medications as prescribed by PCP and other specialist. - DVT precautions especially long distance travel -RTC: 3 months documented in this encounter Plan of Treatment Date Type Specialty Care Team Description 06/28/2019 Clinical Support Sleep Medicine 07/13/2019 Office Visit Family Medicine Mary Freeman, LINING [employer]ER [address] [address] [phone] 07/30/2019 Office Visit Hematology and Oncology Missy Peterson MD [address] [place] [address] [phone] 10/05/2019 Office Visit Rheumatology Jeannie Morrison MD [address] [facility] [address] [place] [address] [phone] Health Maintenance Due Date Last Done Comments [...] of this encounter Implants Implanted Type Area Pulvi Mixer Operator Device Shelf Expiration Model / Serial Identifier Date / Lot Graft Allomax 2cm X 4cm. - [id number] Nose [employer] 04/16/2023 [id number] / Implanted: Qty: 1 on 01/14/2019 by Jasbir Moran MD at OR [id number] / [id number] documented as of this encounter Results Not on filedocumented in this encounter Visit Diagnoses Diagnosis Frequent infections - Primary Pain in both feet Pain in limb Pain in both hands documented in this encounter
--- OUTSIDE RECORDS SUMMARY | 2019-07-01 11:00 | XMS REPORT | Summary of Care ---
:1985 Author Organization [facility] Address [address] [place] [address] Care Team Providers Name Role Phone MarliadamRae newman Primary Care Provider Encounter Details Date Type Department Care Team Description 06/01/2019 Hospital Encounter Diagnostic Radiology at Frequent infections; [facility] Pain in both hands Center [address] [facility] [address] [place] [address] Allergies Active Allergy Reactions Severity [...] 08/25/2012 Levofloxacin 08/25/2012 Patient has tolerated cipro [place] 01/16/2019 Loratadine 08/25/2012 Rizatriptan Benzoate 08/25/2012 Meloxicam [...] as of this encounter (statuses as of 06/02/2019) Medications Medication Sig Dispensed Refills Start Date End Date Status Multiple Vitamin Take 1 tablet by 0 Active (MULTIVITAMIN PO) mouth daily. Calcium Take by mouth. 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 vaginitis documented as of this encounter (statuses as of 06/02/2019) Active Problems Patient Care Coordination Note Pt discharged herself from [facility]. Future medication requests to be forwarded to Primary Care Provider. 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 10/05/2018 HGSIL on Pap smear of cervix 12/18/2012 10/05/2018 Abdominal pain 09/15/2012 10/05/2018 Dizziness 07/07/2012 10/05/2018 Migraine 10/05/2018 Fatigue 10/05/2018 documented as of this encounter (statuses as of 06/02/2019) Immunizations Name Administration Dates Next Due Influenza [...] of this encounter Last Filed Vital Signs Not on filedocumented in this encounter Plan of Treatment Date Type Specialty Care Team Description 06/22/2019 [facility] Visit [facility] [address] [place] [address] [phone] 07/16/2019 Office Visit Hematology and Oncology Missy Peterson MD [address] [place] [address] [phone] Name Type Priority Associated Diagnoses Date/Time XR Hand 3 or More Views Imaging Routine Frequent infections 06/01/2019 2:34 PM Bilateral Pain in both hands EST Name Type Priority Associated Diagnoses Order Schedule XR Hand 3 or More Imaging Routine Frequent infections As Needed for 1 Views Bilateral Pain in both hands Occurrences starting 06/01/2019 until 06/01/2019 Health Maintenance Due Date Last Done Comments [...] of this encounter Implants Implanted Type Area Rehab Physician Device Shelf Expiration Model / Serial Identifier Date / Lot Graft Allomax 2cm X 4cm. - [id number] Nose [facility] 04/16/2023 [id number] / Implanted: Qty: 1 on 01/14/2019 by Jasbir Moran MD at OR CC [id number] / [id number] documented as of this encounter Results Not on filedocumented in this encounter Visit Diagnoses Diagnosis Frequent infections Pain in both hands documented in this encounter
--- OUTSIDE RECORDS SUMMARY | 2019-07-01 11:00 | XMS REPORT | Continuity of Care Document ---
:1985 External Reference #:[id number] Author Name MALINA Self Address [address] [place] [address] Care Team Providers Name Role Phone Mary Freeman NP Care Team Information Paintings Conservator [phone] Problems Active Problems Provider Date Chronic rhinitis Sherry Peters M.D. Onset: 06/24/2017 Ingestion dermatitis due to food Sherry Peters M.D. Onset: 06/24/2017 Mild persistent asthma Sherry Peters M.D. Onset: 06/24/2017 Toxic effect of venom of bees, accidental Sherry Peters M.D. Onset: 11/2016 (unintentional), subsequent encounter Allergic rhinitis due to pollen Sherry Peters M.D. Onset: 03/31/2018 Allergic rhinitis Sheryr Peters M.D. Onset: 03/31/2018 Uncomplicated moderate persistent [...] SIG Qnty Indications Ordering Date Provider Levocetirizine Take 1 Tablet By 90tabs J30.89 Paty 06/25/2019 Dihydrochloride Mouth Every Day UlOLINDA lagosP-C 5mg Tablets Ventolin HFA 2 puffs every 4 18gm Paty 12/23/2017 108(90Base) hours as needed OLINDA CorderoP-C mcg/Act Aerosol for cough, shortness of breath or chest tighntess Verapamil HCL once a day Unknown 80mg Tablets Glumetza once a day Unknown 500mg Tablets ER 24HR Pantoprazole Sodium Unknown 40mg Tablets DR Hassan 2-Michael use as directed 2units Paty 0.3mg/0.3ML Uldemond IDENTITY MANAGEMENT DEVELOPER-C Solution Auto-Inject Ranitidine HCL Italo Larkin, 300mg Tablets Azelastine HCL (Nasal) instill 2 sprays 30ml Lisa Esther, 0.15% into each nostril RPA-C Solution twice a day Apri Unknown 0.15-30mg-mcg Tablets Zyrtec Allergy 1 every day Unknown 10mg Tablets Spiriva Respimat 2 puffs once 1units Paty 1.25mcg/Act daily Uldrraul IDENTITY MANAGEMENT DEVELOPER-C Aerosol Ondansetron PranavdItalo, 4mg Tablets Dispers Hydroxychloroquine 1 tab by mouth Unknown Sulfate twice daily. 200mg Tablets Symbicort 2 inhalations Unknown 160-4.5mcg/Act am&pm Aerosol Flonase Sensimist 1 spray each Unknown 27.5mcg/[place] nostril once a Suspension day Xyzal Allergy 24HR once daily at Unknown 5mg Tablets bedtime Medications Administered in Office Medication SIG Qnty Indications Ordering Provider Date Injection Allergy Injection 05/26/2019 Injection Immunizations CPT Code Status Date Vaccine Lot # [id number] Given Unknown Pneumococcal Vaccine 35403 Given Unknown Influenza Vaccine 02979 Given Unknown Influenza Vaccine 54227 Given Unknown Influenza Vaccine Vital Signs Date Vital Result Comment 06/30/2019 3:00pm Height 66.5 inches 5'6.50" Weight 180.00 lb Weight 81.648 kg Respiratory Rate 75 /min Heart Rate 81 /min O2 % BldC Oximetry 99 % BP Systolic 107 mmHg BP Diastolic 69 mmHg BMI (Body Mass Index) 28.6 kg/m2 06/25/2019 11:55am Height 66.5 inches 5'6.50" Weight 180.00 lb Weight 81.648 kg Respiratory Rate 20 /min Heart Rate 88 /min O2 % BldC Oximetry 99 % BP Systolic 106 mmHg BP Diastolic 67 mmHg Asthma Control Test 12 BMI (Body Mass Index) 28.6 kg/m2 Results Description No Information Available Procedures Date Code Description Status 05/26/2019 40729 Injection Completed 05/20/2019 46535 Skin Test Scratch # Of Units ____ Completed 04/06/2019 77621 Nitric Oxide Gas Determination Completed 03/17/2019 34005 Ippb Completed 03/12/2019 34370 Ippb Completed 02/08/2019 68211 Pre PFT Completed Medical Devices Description No Information Available Encounters Type Date Location Provider Dx Diagnosis Office Visit 06/30/2019 [facility] Paty Cordero, J45.40 Moderate persistent 3:00p IDENTITY MANAGEMENT DEVELOPER-C asthma, uncomplicated J30.89 Other allergic rhinitis J30.2 Other seasonal allergic rhinitis J30.81 Allergic rhinitis due to animal (cat) (dog) hair and dander J30.1 Allergic rhinitis due to pollen Office Visit 06/25/2019 11:40a Leonie Peters J30.89 Other allergic M.D. rhinitis J30.2 Other seasonal allergic rhinitis J30.81 Allergic rhinitis due to animal (cat) (dog) hair and dander J45.40 Moderate persistent asthma, uncomplicated Office Visit 05/20/2019 11:20a Leonie Cordero J30.89 Other allergic [employer]ENT[employer] MANAGEMENT DEVELOPER-C rhinitis J45.40 Moderate persistent asthma, uncomplicated J31.0 Chronic rhinitis J30.1 Allergic rhinitis due to pollen J30.81 Allergic rhinitis due to animal (cat) (dog) hair and dander Office Visit 04/06/2019 8:40a [facility] Sherry Armstrong J30.89 Other allergic Vickie Peters rhinitis J45.40 Moderate persistent asthma, uncomplicated J31.0 Chronic rhinitis Office Visit 03/17/2019 11:00a [facility] Paty Cordero J30.89 Other allergic [employer]ENTITY MANAGEMENT DEVELOPER-C rhinitis J45.40 Moderate persistent asthma, uncomplicated J31.0 Chronic rhinitis Office Visit 03/12/2019 11:00a [place] Jeffrey Self30.89 Other allergic IDENTITY MANAGEMENT DEVELOPER-C rhinitis J30.1 Allergic rhinitis due to pollen Office Visit 02/08/2019 11:40a Leonie Cordero J45.41 Moderate persistent [employer]ENT[employer] MANAGEMENT DEVELOPER-C asthma with (acute) exacerbation J45.40 Moderate persistent asthma, uncomplicated J30.89 Other allergic rhinitis J30.1 Allergic rhinitis due to pollen J32.8 Other chronic sinusitis Office Visit 01/15/2019 3:00p [place] Sherry Peters J45.40 Moderate persistent M.D. asthma, uncomplicated J30.89 Other allergic rhinitis J30.1 Allergic rhinitis due to pollen J32.8 Other chronic sinusitis Office Visit 01/04/2019 3:20p Leonie Cordero J45.40 Moderate persistent IDENTITY MANAGEMENT DEVELOPER-C asthma, uncomplicated J30.89 Other allergic rhinitis J06.9 Acute upper respiratory infection, unspecified Assessments Date Code Description Provider 06/30/2019 J45.40 Moderate persistent asthma, uncomplicated Paty Cordero , IDENTITY MANAGEMENT DEVELOPER-C 06/30/2019 J30.89 Other allergic rhinitis Paty Cordero, IDENTITY MANAGEMENT DEVELOPER-C 06/30/2019 J30.2 Other seasonal allergic rhinitis Paty Cordero, IDENTITY MANAGEMENT DEVELOPER-C 06/30/2019 J30.81 Allergic rhinitis due to animal (cat) (dog) Paty Uldrich, IDENTITY MANAGEMENT DEVELOPER-C hair and dander 06/30/2019 J30.1 Allergic rhinitis due to pollen Paty Uldrich, IDENTITY MANAGEMENT DEVELOPER-C 06/25/2019 J30.89 Other allergic rhinitis Sherry Peters M.D. 06/25/2019 J30.2 Other seasonal allergic rhinitis Sherry Peters M.D. 06/25/2019 J30.81 Allergic rhinitis due to animal (cat) (dog) Sherry Peters M.D. hair and dander 06/25/2019 J45.40 [...] Peters M.D. 05/20/2019 J30.89 Other allergic rhinitis Paty Gil, IDENTITY MANAGEMENT DEVELOPER-C 05/20/2019 J45.40 Moderate persistent asthma, uncomplicated Sherry Peters M.D. 05/20/2019 J45.40 Moderate persistent asthma, uncomplicated Paty Ulich , IDENTITY MANAGEMENT DEVELOPER-C 05/20/2019 J31.0 Chronic rhinitis Sherry Peters M.D. 05/20/2019 J31.0 Chronic rhinitis Paty Uldrich, IDENTITY MANAGEMENT DEVELOPER-C 05/20/2019 J30.1 Allergic rhinitis due to pollen Sherry Peters M.D. 05/20/2019 J30.1 Allergic rhinitis due to pollen Paty Nitaich, IDENTITY MANAGEMENT DEVELOPER-C 05/20/2019 J30.81 Allergic rhinitis due to animal (cat) (dog) Sherry Peters M.D. hair and dander 05/20/2019 J30.81 Allergic rhinitis due to animal (cat) (dog) Paty Ulich, IDENTITY MANAGEMENT DEVELOPER-C hair and dander 04/06/2019 J30.89 Other allergic rhinitis Sherry Peters M.D. 04/06/2019 J45.40 Moderate persistent asthma, uncomplicated Sherry Peters M.D. 04/06/2019 J31.0 Chronic rhinitis Sherry Peters M.D. 03/17/2019 J30.89 Other allergic rhinitis Sherry Peters M.D. 03/17/2019 J30.89 Other allergic rhinitis Paty Ulich, IDENTITY MANAGEMENT DEVELOPER-C 03/17/2019 J45.40 Moderate persistent asthma, uncomplicated Sherry Peters M.D. 03/17/2019 J45.40 Moderate persistent asthma, uncomplicated Paty Ulich , IDENTITY MANAGEMENT DEVELOPER-C 03/17/2019 J31.0 Chronic rhinitis Sherry Peters M.D. 03/17/2019 J31.0 Chronic rhinitis Paty Ulich, IDENTITY MANAGEMENT DEVELOPER-C 03/12/2019 J30.89 Other allergic rhinitis Sherry Peters M.D. 03/12/2019 J30.89 Other allergic rhinitis Paty Uldrich, IDENTITY MANAGEMENT DEVELOPER-C 03/12/2019 J30.1 Allergic rhinitis due to pollen Sherry Peters M.D. 03/12/2019 J30.1 Allergic rhinitis due to pollen Paty Gil, IDENTITY MANAGEMENT DEVELOPER-C 02/08/2019 J45.41 Moderate persistent asthma with (acute) Sherry Peters M.D. exacerbation 02/08/2019 J45.41 Moderate persistent asthma with (acute) Sherry Peters M.D. exacerbation 02/08/2019 J45.40 Moderate persistent asthma, uncomplicated Sherry Peters M.D. 02/08/2019 J45.41 Moderate persistent asthma with (acute) Paty Ulich, IDENTITY MANAGEMENT DEVELOPER-C exacerbation 02/08/2019 J45.40 Moderate persistent asthma, uncomplicated Sherry Peters M.D. 02/08/2019 J45.40 Moderate persistent asthma, uncomplicated Paty Uldrich , IDENTITY MANAGEMENT DEVELOPER-C 02/08/2019 J30.89 Other allergic rhinitis Sherry Peters M.D. 02/08/2019 J30.89 Other allergic rhinitis Paty Marianodemond, [facility] 02/08/2019 J30.1 Allergic rhinitis due to pollen Sherry Peters M.D. 02/08/2019 J30.1 Allergic rhinitis due to pollen Paty Cordero, [facility] 02/08/2019 J32.8 Other chronic sinusitis Paty Mairanodemond, [facility] 01/15/2019 J45.40 Moderate persistent asthma, uncomplicated Sherry Peters M.D. 01/15/2019 J30.89 Other allergic rhinitis Sherry Peters M.D. 01/15/2019 J30.1 Allergic rhinitis due to pollen Sherry Peters M.D. 01/15/2019 J32.8 Other chronic sinusitis Sherry Peters M.D. 01/04/2019 J45.40 Moderate persistent asthma, uncomplicated Sherry Peters M.D. 01/04/2019 J45.40 Moderate persistent asthma, uncomplicated Paty Uldemond [facility] 01/04/2019 J30.89 Other allergic rhinitis Sherry Peters M.D. 01/04/2019 J30.89 Other allergic rhinitis Paty Cordero [facility] 01/04/2019 J06.9 Acute upper respiratory infection, Sherry Peters M.D. unspecified 01/04/2019 J06.9 Acute upper respiratory infection, Paty Marianodemond [facility] unspecified Plan of Treatment Future Appointment(s):08/10/2019 11:40 am - Sherry Peters M.D. at [facility]06/30/2019 - SILVIA Self-CJ45.40 Moderate persistent asthma, vymcsznuypiwzF60.89 Other allergic eibjtiqrB53.2 Other seasonal allergic lfzeuvhlN40.81 Allergic rhinitis due to animal (cat) (dog) hair and pfcqvmG92.1 Allergic rhinitis due to pollenRecommendations:Continue all medications as prescribed.Refrain from wearing perfumes/scented colognes while visitingour office. IPPB now Continue the Tylenol as you have been doing Gargle with salt water for the sore throat Use the Robitussin as you have been for the cough. Your lungs are clear, throat has no redness, no swollen lymph glands and no fever so I feel this is viral. Zithromax does not help a viral infection. Only supportive care as above. Continue the Spiriva 2 puffs daily, may stop the medication and see if it makes a difference. Continue the Symbicort 160 mcg 2 puffs twice a day Continue the Azelestine 2 spray daily due to surgery Continue the fluticasone 2 sprays daily Continue the Ventolin 2 puffs every 4 hours as needed for cough, shortness of breath, chest congestion or wheezing.Monitor Albuterol use. If using more than 2x/week, please call the office as your asthma medications may need to be adjusted. Continue the Zyrtec 1 daily Functional Status Description No Information Available Mental Status Description No Information Available Referrals Description No Information Available
--- OUTSIDE RECORDS SUMMARY | 2019-07-01 11:01 | XMS REPORT | Continuity of Care Document ---
:1985 External Reference #:[id number] Author Name MALINA Self (transmitted by agent of provider Sherry Peters) Address [address] [place] [address] Problems Active Problems Provider Date Chronic rhinitis Sherry Peters M.D. Onset: 06/24/2017 Ingestion dermatitis due to food Sherry Peters M.D. Onset: 06/24/2017 Mild persistent asthma Sherry Peters M.D. Onset: 06/24/2017 Toxic effect of venom of bees, accidental Sherry Peters M.D. Onset: 11/2016 (unintentional), subsequent encounter Allergic rhinitis due to pollen Sherry Petesr M.D. 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 SUPERVISOR-C Aerosol Flonase Sensimist 1 spray each 3units Sherry Armstrong 03/18/2019 nostril once a day Vickie Peters 27.5mcg/[place] Suspension Ventolin HFA 2 puffs every 4 18gm Patyalda Cordero, 12/23/2017 hours as needed [employer]IM[employer] MAINTENANCE SUPERVISOR-C 108(90Base) mcg/Act for cough, Aerosol shortness of breath or chest tighntess Verapamil HCL once a day Unknown 80mg Tablets Glumetza once a day Unknown 500mg Tablets ER 24HR Pantoprazole Sodium Unknown 40mg Tablets DR Hassan 2-Michael use as directed 2units Paty Cordero, SWIMMING [employer]OL MAINTENANCE SUPERVISOR-C 0.3mg/0.3ML Solution Auto-Inject Ranitidine HCL Italo Larkin MD 300mg Tablets Azelastine HCL instill 2 sprays 30ml Lisa Esther, (Nasal) into each nostril RPA-C 0.15% Solution twice a day Apri Unknown 0.15-30mg-mcg Tablets Zyrtec Allergy 1 every day Unknown 10mg Tablets Spiriva Respimat 2 puffs once daily 1units Paty Cordero, SWIMMING [employer]OL MAINTENANCE SUPERVISOR-C 1.25mcg/Act Aerosol Ondansetron Italo Larkin MD 4mg Tablets Dispers Immunizations CPT Code Status Date Vaccine Lot # [id number] Given Unknown Pneumococcal Vaccine 82690 Given Unknown Influenza Vaccine 58437 Given Unknown Influenza Vaccine 78183 Given Unknown Influenza Vaccine Vital Signs Date Vital Result Comment 05/20/2019 11:26am Height 66.5 inches 5'6.50" Weight 170.00 lb Weight 77.112 kg Respiratory Rate 16 /min Heart Rate 88 /min O2 % BldC Oximetry 98 % BP Systolic 107 mmHg BP Diastolic 77 mmHg Asthma Control Test 24 BMI (Body Mass Index) 27.0 kg/m2 04/06/2019 8:47am Height 66.5 inches 5'6.50" Weight 170.00 lb Weight 77.112 kg Respiratory Rate 16 /min Heart Rate 91 /min Body Temperature 97.7 F O2 % BldC Oximetry 99 % BP Systolic 114 mmHg BP Diastolic 75 mmHg Asthma Control Test 13 Fractional Exhaled Nitric Oxide 13 BMI (Body Mass Index) 27.0 kg/m2 Results Description No Information Available Procedures Date Code Description Status 05/20/2019 05242 Skin Test Scratch # Of Units ____ Completed 04/06/2019 07843 Nitric Oxide Gas Determination Completed 03/17/2019 83387 Ippb Completed 03/12/2019 55529 Ippb Completed 02/08/2019 65667 Pre PFT Completed Medical Devices Description No Information Available Encounters Type Date Location Provider Dx Diagnosis Office Visit 05/20/2019 [place] [facility].[place] Other allergic 11:20a [employer]INTE[employer]NCE SUPERVISOR-[employer] rhinitis J45.40 Moderate persistent asthma, uncomplicated J31.0 Chronic rhinitis J30.1 Allergic rhinitis due to pollen J30.81 Allergic rhinitis due to animal (cat) (dog) hair and dander Office Visit 04/06/2019 8:40a [facility] Sherry Armstrong J30.89 Other allergic Vickie Peters rhinitis J45.40 Moderate persistent asthma, uncomplicated J31.0 Chronic rhinitis Office Visit 03/17/2019 11:00a [facility] Collins Self Other allergic [employer]INTENANCE SUPERVISOR-C rhinitis J45.40 Moderate persistent asthma, uncomplicated J31.0 Chronic rhinitis Office Visit 03/12/2019 11:00a [place] Ryder Other allergic [employer]INTENANCE SUPERVISOR-[employer] rhinitis J30.1 Allergic rhinitis due to pollen Office Visit 02/08/2019 11:40a [place] Paty Gil, J45.41 Moderate persistent [employer]TENA[employer]CE SUPERVISOR-[employer] asthma with (acute) exacerbation J45.40 Moderate persistent asthma, uncomplicated J30.89 Other allergic rhinitis J30.1 Allergic rhinitis due to pollen J32.8 Other chronic sinusitis Office Visit 01/15/2019 3:00p [place] Sherry Peters, J45.40 Moderate persistent M.D. asthma, uncomplicated J30.89 Other allergic rhinitis J30.1 Allergic rhinitis due to pollen J32.8 Other chronic sinusitis Office Visit 01/04/2019 3:20p Leonie Lopeziralda Cordero, J45.40 Moderate persistent [employer] MAINTENANCE SUPERVISOR-C asthma, uncomplicated J30.89 Other allergic rhinitis J06.9 Acute upper respiratory infection, unspecified Assessments Date Code Description Provider 05/20/2019 J30.89 Other allergic rhinitis Sherry Peters M.D. 05/20/2019 J30.89 Other allergic rhinitis Paty Uldrich, SW[employer] MAINTENANCE SUPERVISOR-C 05/20/2019 J45.40 Moderate persistent asthma, uncomplicated Sherry Peters M.D. 05/20/2019 J45.40 Moderate persistent asthma, uncomplicated Paty Uldrich , [employer]ING [employer] MAINTENANCE SUPERVISOR-C 05/20/2019 J31.0 Chronic rhinitis Sherry Peters M.D. 05/20/2019 J31.0 Chronic rhinitis Paty Ulich, [employer] MAINTENANCE SUPERVISOR-C 05/20/2019 J30.1 Allergic rhinitis due to pollen Sherry Peters M.D. 05/20/2019 J30.1 Allergic rhinitis due to pollen Paty Uldrich, SWIM[employer] MAINTENANCE SUPERVISOR-C 05/20/2019 J30.81 Allergic rhinitis due to animal (cat) (dog) Sherry Peters M.D. hair and dander 05/20/2019 J30.81 Allergic rhinitis due to animal (cat) (dog) Paty Marianodrich, [employer] MAINTENANCE SUPERVISOR-C hair and dander 04/06/2019 J30.89 Other allergic rhinitis Sherry Peters M.D. 04/06/2019 J45.40 Moderate persistent asthma, uncomplicated Sherry Peters M.D. 04/06/2019 J31.0 Chronic rhinitis Sherry Peters M.D. 03/17/2019 J30.89 Other allergic rhinitis Sherry Peters M.D. 03/17/2019 J30.89 Other allergic rhinitis Payt Uldrich, SWIMMING [employer] MAINTENANCE SUPERVISOR-C 03/17/2019 J45.40 Moderate persistent asthma, uncomplicated Sherry Peters M.D. 03/17/2019 J45.40 Moderate persistent asthma, uncomplicated Paty Uldrich , SWIMMING [employer] MAINTENANCE SUPERVISOR-C 03/17/2019 J31.0 Chronic rhinitis Sherry Peters M.D. 03/17/2019 J31.0 Chronic rhinitis Paty Uldrich, SWIMMING [employer] MAINTENANCE SUPERVISOR-C 03/12/2019 J30.89 Other allergic rhinitis Sherry Peters M.D. 03/12/2019 J30.89 Other allergic rhinitis Paty Uldrich, SWIMMING [employer]OL MAINTENANCE SUPERVISOR-C 03/12/2019 J30.1 Allergic rhinitis due to pollen Sherry Peters M.D. 03/12/2019 J30.1 Allergic rhinitis due to pollen Paty Uldrich, SWIM[employer] MAINTENANCE SUPERVISOR-C 02/08/2019 J45.41 Moderate persistent asthma with (acute) Sherry Peters M.D. exacerbation 02/08/2019 J45.41 Moderate persistent asthma with (acute) Sherry Peters M.D. exacerbation 02/08/2019 J45.40 Moderate persistent asthma, uncomplicated Sherry Peters M.D. 02/08/2019 J45.41 Moderate persistent asthma with (acute) Paty Uldrich, SW[employer] MAINTENANCE SUPERVISOR-C exacerbation 02/08/2019 J45.40 Moderate persistent asthma, uncomplicated Sherry Peters M.D. 02/08/2019 J45.40 Moderate persistent asthma, uncomplicated Paty Uldrich , SWIMMING [employer] MAINTENANCE SUPERVISOR-C 02/08/2019 J30.89 Other allergic rhinitis Sherry Peters M.D. 02/08/2019 J30.89 Other allergic rhinitis Paty Uldrich, SWIM[employer]ING [employer] MAINTENANCE SUPERVISOR-C 02/08/2019 J30.1 Allergic rhinitis due to pollen Sherry Peters M.D. 02/08/2019 J30.1 Allergic rhinitis due to pollen Paty Uldrich, SWIMMING [employer]OL MAINTENANCE SUPERVISOR-C 02/08/2019 J32.8 Other chronic sinusitis Patyalda Cordero, SW[employer]MING [employer] MAINTENANCE SUPERVISOR-C 01/15/2019 J45.40 Moderate persistent asthma, uncomplicated Sherry Peters M.D. 01/15/2019 J30.89 Other allergic rhinitis Sherry Peters M.D. 01/15/2019 J30.1 Allergic rhinitis due to pollen Sherry Peters M.D. 01/15/2019 J32.8 Other chronic sinusitis Sherry Peters M.D. 01/04/2019 J45.40 Moderate persistent asthma, uncomplicated Sherry Peters M.D. 01/04/2019 J45.40 Moderate persistent asthma, uncomplicated Patyalda Cordero , SW[employer]ING [employer]OL MAINTENANCE SUPERVISOR-C 01/04/2019 J30.89 Other allergic rhinitis Sherry Peters M.D. 01/04/2019 J30.89 Other allergic rhinitis Paty Cordero, SWIMMING [employer] MAINTENANCE SUPERVISOR-C 01/04/2019 J06.9 Acute upper respiratory infection, Sherry Peters M.D. unspecified 01/04/2019 J06.9 Acute upper respiratory infection, Paty Cordero, SW[employer] MAINTENANCE SUPERVISOR-C unspecified Plan of Treatment Future Appointment(s):05/26/2019 3:30 pm - Allergy Injection at [id number] 11:40 am - Sherry Peters M.D. at [place] Functional Status Description No Information Available Mental Status Description No Information Available Referrals Description No Information Available
--- OUTSIDE RECORDS SUMMARY | 2019-07-01 11:01 | XMS REPORT | Summary of Care ---
:1985 Author Organization [facility] Address [address] [place] [address] Care Team Providers Name Role Phone Rae Tijerina Zia TIPPLE REPAIRER Primary Care Provider Reason for Referral Physical Therapy (Routine) Status Reason Specialty Diagnoses / Referred By Referred To Procedures Contact Contact Authorized Otolaryngology Diagnoses Vertigo, benign paroxysmal, unspecified laterality Marva Thorpe, Procedures Physical Therapy [facility] [address] [place] [address] Email: [email or web address] Reason for Visit Reason Comments Follow-up follow up in 2months Encounter Details Date Type Department Care Team Description 05/31/2019 Office Visit ENT Clinic Marva Thorpe, [employer] Chronic maxillary sinusitis (Primary Dx); [address] [facility] [address] [facility] Vertigo, benign paroxysmal, [place] [address] [place] [phone] Allergies Active Allergy Reactions Severity Noted Date [...] 08/25/2012 Levofloxacin 08/25/2012 Patient has tolerated cipro Kamas 01/16/2019 Loratadine 08/25/2012 Rizatriptan Benzoate 08/25/2012 Meloxicam [...] Active 1:1000) 0.3 8 MG/0.3ML SOAJ Tiotropium [place] Inhale 1.25 mcg 0 Active Monohydrate into [...] breakfast Patient 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 Future medication requests to be [...] Larkin Multiple thyroid nodules Overview: Transferred to [facility] G[facility] (gastroesophageal reflux disease) Nasal sinus polyp [...] Sign Reading Time Taken Comments Blood Pressure 113/73 05/31/2019 9:09 AM EST Pulse 108 05/31/2019 9:09 AM EST Temperature 37.2 05/31/2019 9:09 AM EST C (99 F) Respiratory Rate 18 05/31/2019 9:09 AM EST Oxygen Saturation 98% 05/31/2019 9:09 AM EST Inhaled Oxygen Concentration - - Weight 78.5 kg (173 lb) 05/31/2019 9:09 AM EST Height 167.6 cm (5' 6") 05/31/2019 9:09 AM EST Body Mass Index 27.92 05/31/2019 9:09 AM EST documented in this encounter Progress Notes Marva Thorpe, FILIBERTO - 05/31/2019 9:00 AM EST HPI: Shannan is a 34 yr old f who present to clinic for Chronic maxillary sinusitis and BPPV unspecifieduni laterality. S/p septoplasty and sinus surgery. She has been complaining of sinus symptoms. Patient has follow up appointment with Dr. Moran on 05/17/19. Dr. Moran performed nasal endoscopy which revealed widely patent nasal cavities bilaterally and no nasal blockages, and he performed culture of nasal cavity which showed staph epidermidis and corynebacterium so he sent in azithromycin and mupirocin irrigations. Patient finished antibiotic. Continue mupirocin irritations as prescribed. She does feel her sinus symptoms have improved with current treatment. 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 States she has had Vertigo at night recently. Has been taking Meclizine with some relief. Denies fever or chills. Past Medical History: Diagnosis Date Asthma Borderline diabetes Fatigue GERD (gastroesophageal reflux disease) Goiter Noy thyroiditis Migraine Polycystic ovarian syndrome Past Surgical History: Procedure Laterality Date ESOPHAGOGASTRIC FUNDOPLICATION FOOT SURGERY Left 07/2015 removed a piece of bone, bone spurs. Dr. jeffery Hadley LA CONIZATION CERVIX,LOOP ELECTRD N/A 07/19/2014 Procedure: LOOP Electrosurgical Excision Procedure per Dr Larkin; Surgeon: Myrna Larkin MD; Location: OR [facility]; Service: Gynecology; Laterality: N/A; LA NASAL/SINUS NDSC TOTAL WITH SPHENOIDOTOMY Bilateral 01/14/2019 Procedure: Bilateral sinus surgery (sinus instruments and scopes, camera, tower , merocele, medtronic image guidance and debrider); Surgeon: Jasbir Moran MD; Location: OR [facility]; Service: ENT; Laterality: Bilateral; Review of systems positive for sinus drainage and pressure, otherwise negative x 12 systems except per health maintenance form and HPI. PHYSICAL EXAM GENERAL APPEARANCE: Well developed, well nourished. HEAD AND FACE: No lesions or masses. Palpation and percussion of face shows no tenderness over the sinuses. Salivary glands show no masses. EYES: extraocular movements are intact, pupils equal round, reactive to light and accomodation. ENT Ears: External inspection of ears reveals no lesions, no masses. Pneumatic otoscopic examination reveals normal tympanic membranes with normal motion and normal external auditory canals bilaterally. Nose: Visualization of the middle meatus was limited on anterior evaluation necessitating nasal endoscopy. External inspection of nose reveals no lesions, no masses. Sinuses: nontender Oral cavity/Oropharynx: Lips and gums are normal. Oropharynx, including the mucosa of oral cavity, hard and soft palates, tongue, and posterior pharyngeal wall showed normal symmetry without lesion andnormal hydration of mucosal surfaces. Neck: Normal symmetry and overall appearance as well as tracheal position; no masses. Thyroid gland shows no tenderness or masses. No LAD. Neuro: Gait steady without ataxia Assessment and Plan: Shannan is a 34 yr old f who presented to clinic for follow up of Chronic maxillarysinusitis and BPPV unspecified uni laterality. Dr. Moran performed nasal endoscopy which revealed clear sinus cavities, and he performed culture of nasal cavity which showed staph epidermidis and corynebacterium so he sent in azithromycin and mupirocin irrigations. Patient finished antibiotic. Continuemupirocin irritations as prescribed. Sinus symptoms have improved with medical management. -Script for Vestibular therapy -Follow up in 4 weeks Marva Thorpe NP 4: 48 PM ESTdocumented in this encounter Plan of Treatment Date Type Specialty Care Team Description 06/22/2019 Office Visit Rheumatology Jeannie Morrison MD [address] [place] [address] [phone] 07/16/2019 Office Visit Hematology and Oncology Missy Peterson MD [address] [place] [address] [phone] Health Maintenance Due Date Last Done Comments [...] of this encounter Implants Implanted Type Area Employee Development Specialist Device Shelf Expiration Model / Serial Identifier Date / Lot Graft Allomax 2cm X 4cm. - [id number] Nose [facility] 04/16/2023 [id number] / Implanted: Qty: 1 on 01/14/2019 by Jasbir Moran MD at OR [id number] / [id number] documented as of this encounter Results Not on filedocumented in this encounter Visit Diagnoses Diagnosis Chronic maxillary sinusitis - Primary Vertigo, benign paroxysmal, unspecified laterality documented in this encounter
--- OUTSIDE RECORDS SUMMARY | 2019-07-01 11:01 | XMS REPORT | Summary of Care ---
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 Primary Care Provider Reason for Visit Reason Comments New Patient Joint Pain Encounter Details Date Type Department Care Team Description 06/01/2019 Office Visit [facility] Rheumatology Jeannie Morrison MD Frequent infections (Primary Dx); at [facility] [address] Pain in both hands; Care Center 2nd Floor Pain in both feet [address] [place] [address] 2nd Floor, [address] [place] [address] Allergies Active Allergy Reactions Severity [...] 08/25/2012 Levofloxacin 08/25/2012 Patient has tolerated cipro Nissequogue 01/16/2019 Loratadine 08/25/2012 Rizatriptan Benzoate 08/25/2012 Meloxicam [...] as of this encounter (statuses as of 06/01/2019) Medications Medication Sig Dispensed Refills Start Date End Date Status Multiple Vitamin Take 1 tablet by 0 Active (MULTIVITAMIN PO) mouth daily. Calcium Take by mouth. 0 Active Citrate-Vitamin D (CALCIUM + D PO) EPINEPHrine (EPIPEN 0 11/03/2017 Active 1:1000) 0.3 MG/0.3ML SOAJ Tiotropium Charlotte Inhale 1.25 mcg 0 Active Monohydrate (SPIRIVA [...] 0 tabletIndications: breakfast Patient PCOS (polycystic needs head bellhop captain ovarian syndrome) Amneal metroNIDAZOLE 1 applicator 70 [...] as of this encounter (statuses as of 06/01/2019) Active Problems Patient Care Coordination Note Pt discharged herself from [facility]. Future medication requests to be forwarded to [...] Larkin Multiple thyroid nodules Overview: Transferred to [facility] GERD (gastroesophageal reflux disease) Nasal sinus polyp Maxillary sinus mass Mucous retention cyst of maxillary sinus Acute recurrent sinusitis documented as of this encounter (statuses as of 06/01/2019) Resolved Problems Problem Noted Date Resolved Date Noy's thyroiditis 11/20/2016 10/05/2018 HGSIL on Pap smear of cervix 12/18/2012 10/05/2018 Abdominal pain 09/15/2012 10/05/2018 Dizziness 07/07/2012 10/05/2018 Migraine 10/05/2018 Fatigue 10/05/2018 documented as of this encounter (statuses as of 06/01/2019) Immunizations Name Administration Dates Next Due Influenza [...] Time Taken Comments Blood Pressure 142/89 06/01/2019 1:24 PM EST Pulse 91 06/01/2019 1:24 PM EST Temperature 37.3 06/01/2019 1:24 PM EST C (99.1 F) Respiratory Rate 16 06/01/2019 1:24 PM EST Oxygen Saturation - - Inhaled Oxygen Concentration - - Weight 83.5 kg (184 lb) 06/01/2019 1:24 PM EST Height 167.6 cm (5' 6") 06/01/2019 1:24 PM EST Body Mass Index 29.7 06/01/2019 1:24 PM EST documented in this encounter Progress Notes Jeannie Morrison MD - 06/01/2019 1:30 PM EST Subjective: Patient ID: Shannan Paula is a 34 y.o. female. Chief Complaint: joint pains, chronic infections HPI 34 year old female referred for joint pains, chronic infections. She has seen allergy and immunologyand she plans to get allergy shots. She has joint pains in her hands [...] of bone, bone spurs. Dr. jeffery Hadley [place] CONIZATION CERVIX,LOOP ELECTRD N/A 07/19/2014 Procedure: LOOP Electrosurgical Excision Procedure per Dr Larkin; Surgeon: Myrna Larkin MD; Location: OR [facility]; Service: Gynecology; Laterality: N/A; MO NASAL/SINUS NDSC TOTAL WITH SPHENOIDOTOMY Bilateral 01/14/2019 Procedure: Bilateral sinus surgery (sinus instruments and scopes, camera, tower , merocele, medtronic image guidance and debrider); Surgeon: Jasbir Moran MD; Location: OR ; Service: ENT; Laterality: Bilateral; Family History Problem Relation Age of Onset Migraines Brother Personality disorder Brother Mental illness Brother Mental illness Mother Intellectual Disability Mother Mental illness Father Cancer Paternal Grandmother Lung Cancer Alpha 1 antitrypsin. 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 20 g 0 Tiotropium Charlotte Monohydrate (SPIRIVA RESPIMAT) 1.25 MCG/ACT AERS Inhale 1.25 mcg into the lungs verapamil (CALAN) 40 MG tablet Take 1 tablet by mouth Two Times Daily 60 tablet 1 No current facility-administered medications for this visit. Review of Systems Constitutional: +fatigue, fevers HENT: +sore throat, frequent sinus infections Eyes: Negative for blurred vision, double vision, pain and discharge. Respiratory: +shortness of breath secondary to asthma Cardiovascular: Negative for lower extremity swelling, chest pain and palpitations. Gastrointestinal: Negative for heartburn, nausea, vomiting, abdominal pain constipation, and diarrhea. Genitourinary: +diarrhea/vomiting Musculoskeletal: +joint pains and joint swelling Skin: +rashes Neurological: Negative for dizziness, sensory change, speech change, focal weakness, loss of consciousness, tingling/numbness and weakness. Endo/Heme/Allergies: Does not bruise/bleed easily. Objective: Vitals: 06/01/19 1324 BP: 142/89 Pulse: 91 Resp: 16 Temp: 37.3 C (99.1 F) Physical Exam Constitutional: Alert and oriented x3, no acute distress HEENT: Normocephalic, atraumatic, PERRLA Cardiovascular: Regular rate and rhythm, S1 normal and S2 normal. Lungs: Clear to auscultation b/l. No wheezing Abdomen: Soft, non-tender Musculoskeletal: +tenderness on PIPs b/l Neurological: alert and oriented to person, place, and time. Extremities: no edema Skin: Skin is warm and dry. Assessment: 34 year old female referred for joint pains, chronic infections. She has seen allergy and immunologyand she plans to get allergy shots. She has joint pains in her hands and feet. History of chronic infections. Multiple allergies to medications Plan: 1. Joint pains with a history of chronic infections and multiple medication allergies -will order arthritis panel along with anca due to multiple sinus/ear infections , immunoglobulin levels due to chronic infections -She has seen multiple doctors, nothing yet has been found. Plan to have allergy treatments - ALT; Future - JIA; Future - JIA Specificity; Future - AST; Future - C3 complement; Future - C4 complement; Future - CBC and Differential; Future - CCP antiBody; Future - Rheumatoid factor; Future - Sedimentation rate, automated; Future - Creatinine with GFR; Future - C-reactive protein; Future - XR Hand 3 or More Views Bilateral; Future - Complement, total; Future - Neutrophil Cytoplasmic Antibody; Future - Complement, total; Future - Immunoglobulin Assay; Future - IgG Subclasses; Future - Activities as tolerated. - Fall precautions emphasized. - Diet: low carb/low fat, more greens/vegetables, adequate hydration - Encouraged to maintain good sleep hygiene - Continue other medications as prescribed by PCP and other specialist. - DVT precautions especially long distance travel -RTC: 2 weeks documented in this encounter Plan of Treatment Date Type Specialty Care Team Description 06/01/2019 Office Visit Pulmonology Gage Bradley MD PhD Arrived [address] [place] [address] [phone] 06/22/2019 Office Visit Rheumatology Jeannie Morrison MD [address] [address] [phone] 07/16/2019 Office Visit Hematology and Oncology Missy Peterson MD [address] [place] [address] [phone] Name Type Priority Associated Diagnoses Order Schedule ALT Lab Routine Frequent infections 1 Occurrences starting Pain in both hands 06/01/2019 until 11/30/2019 JIA Lab Routine Frequent infections 1 Occurrences starting Pain in both hands 06/01/2019 until 12/02/2019 JIA Specificity Lab Routine Frequent infections 1 Occurrences starting Pain in both hands 06/01/2019 until 12/02/2019 AST Lab Routine Frequent infections 1 Occurrences starting Pain in both hands 06/01/2019 until 11/30/2019 C3 complement Lab Routine Frequent infections 1 Occurrences starting Pain in both hands 06/01/2019 until 11/30/2019 C4 complement Lab Routine Frequent infections 1 Occurrences starting Pain in both hands 06/01/2019 until 12/02/2019 CBC and Differential Lab Routine Frequent infections 1 Occurrences starting Pain in both hands 06/01/2019 until 11/29/2019 CCP antiBody Lab Routine Frequent infections 1 Occurrences starting Pain in both hands 06/01/2019 until 11/30/2019 Rheumatoid factor Lab Routine Frequent infections 1 Occurrences starting Pain in both hands 06/01/2019 until 12/02/2019 Sedimentation rate, Lab Routine Frequent infections 1 Occurrences starting automated Pain in both hands 06/01/2019 until 12/02/2019 Creatinine with GFR Lab Routine Frequent infections 1 Occurrences starting Pain in both hands 06/01/2019 until 11/30/2019 C-reactive protein Lab Routine Frequent infections 1 Occurrences starting Pain in both hands 06/01/2019 until 11/30/2019 XR Hand 3 or More Views Imaging Routine Frequent infections Expected: 06/01/2019, Bilateral Pain in both hands Expires: 06/01/2021 Complement, total Lab Routine Frequent infections 1 Occurrences starting Pain in both hands 06/01/2019 until 11/30/2019 Neutrophil Cytoplasmic Lab Routine Frequent infections 1 Occurrences starting Antibody Pain in both hands 06/01/2019 until 12/01/2019 Complement, total Lab Routine Frequent infections 1 Occurrences starting Pain in both hands 06/01/2019 until 11/30/2019 Immunoglobulin Assay Lab Routine Frequent infections 1 Occurrences starting Pain in both hands 06/01/2019 until 12/02/2019 IgG Subclasses Lab Routine Frequent infections 1 Occurrences starting Pain in both hands 06/01/2019 until 12/02/2019 Health Maintenance Due Date Last Done Comments [...] of this encounter Implants Implanted Type Area Java Web Developer Device Shelf Expiration Model / Serial Identifier Date / Lot Graft Allomax 2cm X 4cm. - [id number] Nose [facility] 04/16/2023 [id number] / Implanted: Qty: 1 on 01/14/2019 by Jasbir Moran MD at [facility] [id number] / [id number] documented as of this encounter Results Not on filedocumented in this encounter Visit Diagnoses Diagnosis Frequent infections - Primary Pain in both hands Pain in both feet Pain in limb documented in this encounter
[2019-07-01 11:04] VITALS: BP 119/80
--- NOTE | 2019-07-01 11:45 | UC ---
Throat Pain/Nasal Foreign HPI - HPI Summary HPI Summary: Pt presents with c/o sinus pressure and pain X 2 weeks. Pt has hx of asthma and said she was seen by her PCP yesterday and hasd a nebulizer treatment for wheezing. Pt is in NAD distress at time of PE. - History of Current Complaint Chief Complaint: UCRespiratory Stated Complaint: SINUS COMPLAINT Time Seen by Provider: 07/01/19 11:32 Hx Obtained From: Patient Hx Last Menstrual Period: 05/11/19 ?: No Onset/Duration: Gradual Onset, Lasting Weeks - 2 Severity: Severe Pain Intensity: 10 Cough: None Associated Signs & Symptoms: Positive: Sinus Discomfort Related History: Seasonal Allergies - Epiglottits Risk Factors Epiglottis Risk Factors: Negative - Allergies/Home Medications Allergies/Adverse Reactions: Allergies Allergy/AdvReac Type Severity Reaction Status Date / Time amitriptyline Allergy Unknown Verified 07/01/19 11:05 Reaction Details amoxicillin Allergy Anaphylatic Verified 07/01/19 11:05 Shock bupropion Allergy Unknown Verified 07/01/19 11:05 Reaction Details butalbital Allergy Unknown Verified 07/01/19 11:05 Reaction Details carisoprodol Allergy Unknown Verified 07/01/19 11:05 Reaction Details cefaclor Allergy Unknown Verified 07/01/19 11:05 Reaction Details cefadroxil Allergy Unknown Verified 07/01/19 11:05 Reaction Details cefdinir Allergy Unknown Verified 07/01/19 11:05 Reaction Details celecoxib Allergy Unknown Verified 07/01/19 11:05 Reaction Details cephalexin Allergy Unknown Verified 07/01/19 11:05 Reaction Details ciprofloxacin Allergy Numbness Verified 07/01/19 11:05 And Tingling clarithromycin Allergy Unknown Verified 07/01/19 11:05 Reaction Details clindamycin Allergy Unknown Verified 07/01/19 11:05 Reaction Details codeine Allergy Unknown Verified 07/01/19 11:05 Reaction Details desogestrel Allergy Unknown Verified 07/01/19 11:05 Reaction Details donepezil Allergy Unknown Verified 07/01/19 11:05 Reaction Details doxycycline Allergy Unknown Verified 07/01/19 11:05 Reaction Details drospirenone Allergy Unknown Verified 07/01/19 11:05 Reaction Details duloxetine [From Cymbalta] Allergy Unknown Verified 07/01/19 11:05 Reaction Details eletriptan Allergy Unknown Verified 07/01/19 11:05 Reaction Details escitalopram Allergy Unknown Verified 07/01/19 11:05 Reaction Details ethinyl estradiol Allergy Unknown Verified 07/01/19 11:05 [From Jolessa] Reaction Details fluoxetine Allergy Unknown Verified 07/01/19 11:05 Reaction Details gabapentin Allergy Hives Verified 07/01/19 11:05 hydrocodone Allergy Unknown Verified 07/01/19 11:05 Reaction Details ibuprofen Allergy Unknown Verified 07/01/19 11:05 Reaction Details lamotrigine [From Lamictal] Allergy Unknown Verified 07/01/19 11:05 Reaction Details levofloxacin [From Levaquin] Allergy Unknown Verified 07/01/19 11:05 Reaction Details levonorgestrel [From Jolessa] Allergy Unknown Verified 07/01/19 11:05 Reaction Details lithium Allergy Unknown Verified 07/01/19 11:05 Reaction Details loratadine Allergy Unknown Verified 07/01/19 11:05 Reaction Details meloxicam Allergy Unknown Verified 07/01/19 11:05 Reaction Details metformin Allergy Unknown Verified 07/01/19 11:05 Reaction Details metoclopramide [From Reglan] Allergy Unknown Verified 07/01/19 11:05 Reaction Details naproxen Allergy Unknown Verified 07/01/19 11:05 Reaction Details norethindrone Allergy Unknown Verified 07/01/19 11:05 [From Necon 0.5/35 (21)] Reaction Details pioglitazone [From Actos] Allergy Unknown Verified 07/01/19 11:05 Reaction Details pregabalin Allergy Anaphylatic Verified 07/01/19 11:05 Shock propranolol Allergy Unknown Verified 07/01/19 11:05 Reaction Details red dye Allergy Unknown Verified 07/01/19 11:05 Reaction Details rizatriptan [From Maxalt] Allergy Unknown Verified 07/01/19 11:05 Reaction Details sertraline [From Zoloft] Allergy Unknown Verified 07/01/19 11:05 Reaction Details Sulfa (Sulfonamide Allergy Hives Verified 07/01/19 11:05 Antibiotics) sulfamethoxazole Allergy Unknown Verified 07/01/19 11:05 [From Bactrim] Reaction Details sumatriptan [From Imitrex] Allergy Unknown Verified 07/01/19 11:05 Reaction Details topiramate [From Topamax] Allergy Unknown Verified 07/01/19 11:05 Reaction Details tramadol Allergy Unknown Verified 07/01/19 11:05 Reaction Details trazodone Allergy Unknown Verified 07/01/19 11:05 Reaction Details trimethoprim [From Bactrim] Allergy Unknown Verified 07/01/19 11:05 Reaction Details venlafaxine [From Effexor] Allergy Unknown Verified 07/01/19 11:05 Reaction Details zolmitriptan [From Zomig] Allergy Unknown Verified 07/01/19 11:05 Reaction Details most antibiotic Allergy Unknown Anaphylatic Uncoded 07/01/19 11:05 Shock CI pigment blue Allergy Unknown Uncoded 07/01/19 11:05 Reaction Details sprintec Allergy Unknown Uncoded 07/01/19 11:05 Reaction Details triximet Allergy Unknown Uncoded 07/01/19 11:05 Reaction Details VINYL Allergy problems Uncoded 07/01/19 11:05 with breathing PMH/Surg Hx/FS Hx/Imm Hx Previously Healthy: Yes Other History Of: Negative For: HIV, Hepatitis B, Hepatitis C, Anticoagulant Therapy - Surgical History Surgical History: Yes Surgery Procedure, Year, and Place: leep procedure 2013, foot operation 2015, fundoplication, sinus endoscopy - Family History Known Family History: Positive: Cardiac Disease, Hypertension - Social History Occupation: Employed Full-time Lives: With Family Alcohol Use: None Substance Use Type: None Smoking Status (MU): Former Smoker Amount Used/How Often: 1 PPD X 6 MONTHS Have You Smoked in the Last Year: No When Did the Patient Quit Smoking/Using Tobacco: 2009 - Immunization History Most Recent Influenza Vaccination: unknown Hx Tetanus, Diphtheria Vaccination: Yes Vaccination Up to Date: Yes Review of Systems All Other Systems Reviewed And Are Negative: Yes Constitutional: Positive: Fever, Chills, Fatigue Skin: Positive: Negative Eyes: Positive: Negative ENT: Positive: Sinus Congestion, Sinus Pain/Tenderness Respiratory: Positive: Cough Cardiovascular: Positive: Negative Gastrointestinal: Positive: Negative Genitourinary: Positive: Negative Motor: Positive: Negative Neurovascular: Positive: Negative Musculoskeletal: Positive: Negative Neurological: Positive: Negative Psychological: Positive: Negative Is Patient Immunocompromised?: No Physical Exam Triage Information Reviewed: Yes Appearance: Ill-Appearing Vital Signs: Initial Vital Signs Temp 97.7 F 07/01/19 11:00 Pulse 85 07/01/19 11:00 Resp 18 07/01/19 11:00 BP 119/80 07/01/19 11:00 Pulse Ox 100 07/01/19 11:00 Vital Signs Reviewed: Yes Eye Exam: Normal ENT: Positive: Nasal congestion, Sinus tenderness Dental Exam: Normal Neck exam: Normal Respiratory Exam: Normal Cardiovascular Exam: Normal Musculoskeletal Exam: Normal Neurological Exam: Normal Psychological Exam: Normal Skin Exam: Normal Throat Pain/Nasal Course/Dx - Differential Dx/Diagnosis Differential Diagnosis/HQI/PQRI: Influenza, Sinusitis Provider Diagnosis: Sinusitis Discharge ED - Sign-Out/Discharge Documenting (check all that apply): Patient Departure All imaging exams completed and their final reports reviewed: No Studies - Discharge Plan Condition: Stable Disposition: HOME Prescriptions: Azithromycin 500 mg PO DAILY #5 tablet Patient Education Materials: Sinusitis (ED) Referrals: Sugey Johnson MD [Primary Care Provider] - If Needed Additional Instructions: Please follow up with your PCP as needed. - Billing Disposition and Condition Condition: STABLE Disposition: Home
== END 2019-07-01 12:02 | disposition home or self-care (01) ==
LOC: UCCORT 09:50
DX: J32.9 Chronic sinusitis, unspecified (principal); Z88.8 Allergy status to other drugs, medicaments and biological substances; Z88.0 Allergy status to penicillin; Z88.1 Allergy status to other antibiotic agents; Z88.5 Allergy status to narcotic agent; Z88.2 Allergy status to sulfonamides; Z91.09 Other allergy status, other than to drugs and biological substances; Z87.891 Personal history of nicotine dependence
CPT/HCPCS: 99212; G0463

== ENCOUNTER 2019-07-20 14:49 | Emergency (ER) | payer BC ==
--- OUTSIDE RECORDS SUMMARY | 2019-07-20 15:18 | XMS REPORT | Summary of Care ---
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 (Primary Dx) [address] [place] [id number] [phone] Allergies Active Allergy Reactions Severity Noted Date [...] 08/25/2012 Levofloxacin 08/25/2012 Patient has tolerated cipro [place] 01/16/2019 Loratadine 08/25/2012 Rizatriptan Benzoate 08/25/2012 Meloxicam [...] as of this encounter (statuses as of 07/16/2019) Medications Medication Sig Dispensed Refills Start Date End Date Status Multiple Vitamin Take 1 tablet 0 Active (MULTIVITAMIN PO) by mouth daily. Calcium Citrate-Vitamin Take by mouth. 0 Active D (CALCIUM + D PO) EPINEPHrine (EPIPEN 0 11/03/2017 Active 1:1000) 0.3 MG/0.3ML SOAJ Tiotropium [place] Inhale 1.25 mcg 0 Active Monohydrate (SPIRIVA into the lungs RESPIMAT) 1.25 MCG/ACT AERS albuterol (VENTOLIN Inhale into the 0 08/12/2017 Active HFA) 108 (90 Base) lungs MCG/ACT inhaler budesonide-formoterol Inhale into the 0 Active (SYMBICORT) 80-4.5 lungs MCG/ACT inhaler fluticasone (FLONASE) 2 sprays by 16 g 12 02/01/2019 01/31/2020 Active 50 MCG/ACT nasal spray Nasal route Two Times Daily ondansetron Take 1 tablet 45 tablet 6 02/11/2019 Active (ZOFRAN-ODT) 4 MG by mouth every disintegrating 8 (eight) hours tabletIndications: as needed for Nausea and vomiting in Nausea adult Additional information Patient not taking. Reported on 07/16/2019 2:55 PM GLUMETZA 500 MG 24 hr Take 1 tablet by 30 tablet 11 02/12/2019 02/11/2020 Active tabletIndications: PCOS mouth daily with (polycystic ovarian breakfast Patient syndrome) needs crew leader Amneal metroNIDAZOLE (METROGEL) 1 applicator 70 g 2 02/17/2019 Active 0.75 % vaginal vaginally every gelIndications: BV night for 5 nights (bacterial vaginosis) Additional information Patient not taking. Reported on 07/16/2019 2:55 PM progesterone (PROMETRIUM) Take 1 capsule 30 capsule 11 02/17/20192019 Active 100 MG capsuleIndications: by mouth Menorrhagia with regular nightly PRN cycle bleeding Additional information Patient not taking. Reported on 07/16/2019 2:55 PM azelastine (ASTELIN) 2 sprays by 30 mL 12 03/29/2019 03/27/2020 Active 0.1 % nasal Nasal route Two sprayIndications: Times Daily Use Nasal congestion, in each nostril Sinus congestion as directed Sodium 50 mLs by Nasal 100 each 12 05/21/2019 Active Chloride-Sodium route Two Times Bicarb 2300-700 MG Daily PACK Apri 0.15-30 MG-MCG TAKE 1 TABLET BY 84 tablet 8 05/27/2019 Active Oral Tablet MOUTH ONCE DAILY (desogestrel-ethinyl estradiol)Indications : PCOS (polycystic ovarian syndrome) raNITIdine HCl 300 MG TAKE 1 TABLET BY 90 tablet 10 06/03/2019 Active Oral Tablet MOUTH AT BEDTIME (ZANTAC)Indications: Gastric ulcer without hemorrhage or perforation, unspecified chronicity Verapamil HCl 40 MG TAKE 1 TABLET BY 180 1 06/15/2019 Active Oral Tablet (CALAN) MOUTH TWICE A tablet DAY Hydroxychloroquine Take 1 tablet by 60 tablet 3 06/22/2019 06/20/2020 Active Sulfate 200 MG Oral mouth Two Times Tablet Daily (PLAQUENIL)Indication s: Pain in both hands Pantoprazole Sodium TAKE 1 TABLET BY 180 0 07/15/2019 Active 40 MG Oral Tablet MOUTH TWICE tablet Delayed Release DAILY (PROTONIX)Indications : Gastric ulcer without hemorrhage or perforation, unspecified chronicity Beclomethasone 2 sprays by 10.6 g 5 07/16/2019 Active Dipropionate 80 Nasal route MCG/ACT Nasal Aerosol daily SolutionIndications: Sinus congestion, Nasal congestion Terconazole 0.8 % INSERT ONE 20 g 1 07/16/2019 Active Vaginal Cream APPLICATORFUL (TERAZOL VAGINALLY AT 3)Indications: Yeast BEDTIME UNTIL vaginitis TUBE IS EMPTY Terconazole 0.8 % INSERT ONE 20 g 0 05/31/2019 07/16/2019 Discontinued Vaginal Cream APPLICATORFUL (Reorder) (TERAZOL VAGINALLY AT 3)Indications: Yeast BEDTIME UNTIL vaginitis TUBE IS EMPTY documented as of this encounter (statuses as of 07/16/2019) Active Problems Patient Care Coordination Note Pt discharged herself from [facility], [place]. 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 10/05/2018 HGSIL on Pap smear of cervix 12/18/2012 10/05/2018 Abdominal pain 09/15/2012 10/05/2018 Dizziness 07/07/2012 10/05/2018 Migraine 10/05/2018 Fatigue 10/05/2018 documented as of this encounter (statuses as of 07/16/2019) Immunizations Name Administration Dates Next Due Influenza [...] Sign Reading Time Taken Comments Blood Pressure 118/74 07/16/2019 2:52 PM EST Pulse - - Temperature 37.7 07/16/2019 2:52 PM EST C (99.8 F) Respiratory Rate - - Oxygen Saturation - - Inhaled Oxygen Concentration - - Weight - - Height 170.2 cm (5' 7") 07/16/2019 2:52 PM EST Body Mass Index - - documented in this encounter Patient Instructions Patient InstructionsMyrna Larkin MD - 07/16/2019 3:00 PM ESTPlease call or email via My Chart with any questions or concerns. documented in this encounter Progress Notes Myrna Larkin MD - 07/16/2019 3:00 PM EST Pt recently diagnosed with lupus. She started plaquenil this week and has noted improvement in her overall physical and emotional malaise. 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 This will fit into her class schedule and enable her to complete homework. Pt is completing a course of antibiotics and is experiencing vaginal itching. She is reluctant to take diflucan this week as she is taking daily acetaminophen , ~2000 mg daily. Pt plans to return to the gym next week. She wonders if she needs to go to PT anymore as her back and wrist pain are only about monthly, which is managed well by her chiropractor. Vitals: 07/16/19 1452 BP: 118/74 Temp: 37.7 C (99.8 F) PE def Assessment: Yeast vaginitis- likely due to prolonged antibiotics Lupus- started on Plaquenil Back and wrist pain- resolved after PT Sleep disturbance- has sleep study coming up Plan: Terconazole Can discontinue PT Do not recommend starting her exercise regimen by going 5 days a week. 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 Her best plan for her lupus , migraines and sleepdisturbances is to have as consistent a schedule as possible. It will improve her sleep hygiene, weight maintenance, mood lability, ability to exercise, and keep from feeling too stressed by constantlytrying to rearrange her life. RTC 3 mos for well woman exam documented in this encounter Plan of Treatment Date Type Specialty Care Team Description 09/17/2019 Initial consult Otolaryngology Rose Sierra MD [address] [place] [address] 09/30/2019 Office Visit Family Medicine Mary Freeman NP [address] [address] [phone] 10/05/2019 Office Visit Rheumatology Jeannie Morrison MD [address] [facility] [address] [place] [address] [phone] Health Maintenance Due Date Last Done Comments MMR Vaccines (1 of 1 - 01/07/1985 Standard series) Varicella Vaccines (1 of 2 01/07/1985 - 2-dose childhood series) DTaP,Tdap,and Td Vaccines 01/07/1991 (1 - Tdap) Influenza Vaccine 04/20/2019 08/31/2018, 05/07/2018 HIV Screening [...] of this encounter Implants Implanted Type Area Spray Ii Painter Device Shelf Expiration Model / Serial Identifier Date / Lot Graft Allomax 2cm X 4cm. - [id number] Nose [facility] 04/16/2023 [id number] / Implanted: Qty: 1 on 01/14/2019 by Jasbir Moran MD at OR [id number] / [id number] documented as of this encounter Results Not on filedocumented in this encounter Visit Diagnoses Diagnosis Yeast vaginitis - Primary Candidiasis of vulva and vagina documented in this encounter
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
[2019-07-20 15:27] VITALS: BP 117/71
--- NOTE | 2019-07-20 15:46 | UC ---
Respiratory Complaint HPI - HPI Summary HPI Summary: Pt presents c/o wheezing, sinus pressure, pain, body aches, chills and "feeling terrible" X "several days". - History of Current Complaint Chief Complaint: UCGU Stated Complaint: ST,CONGESTION Time Seen by Provider: 07/20/19 15:36 Hx Obtained From: Patient Hx Last Menstrual Period: "I don't know" ?: No Onset/Duration: Gradual Onset, Lasting Weeks, Still Present Timing: Constant Severity Initially: Mild Severity Currently: Severe Pain Intensity: 9 Character: Cough: Productive Aggravating Factors: Exertion, Deep Breaths, Recumbent Position Alleviating Factors: Nothing Associated Signs And Symptoms: Positive: Fever, Chills, Wheezing, URI, Nasal Congestion, Sinus Discomfort Related History: Seasonal Allergies - Risk Factors Pulmonary Embolism Risk Factors: Negative Cardiac Risk Factors: Negative Pseudomonas Risk Factors: Chronic Lung Disease Tuberculosis Risk Factors: Negative - Allergies/Home Medications Allergies/Adverse Reactions: Allergies Allergy/AdvReac Type Severity Reaction Status Date / Time amitriptyline Allergy Unknown Verified 07/20/19 15:18 Reaction Details amoxicillin Allergy Anaphylatic Verified 07/20/19 15:18 Shock bupropion Allergy Unknown Verified 07/20/19 15:18 Reaction Details butalbital Allergy Unknown Verified 07/20/19 15:18 Reaction Details carisoprodol Allergy Unknown Verified 07/20/19 15:18 Reaction Details cefaclor Allergy Unknown Verified 07/20/19 15:18 Reaction Details cefadroxil Allergy Unknown Verified 07/20/19 15:18 Reaction Details cefdinir Allergy Unknown Verified 07/20/19 15:18 Reaction Details celecoxib Allergy Unknown Verified 07/20/19 15:18 Reaction Details cephalexin Allergy Unknown Verified 07/20/19 15:18 Reaction Details ciprofloxacin Allergy Numbness Verified 07/20/19 15:18 And Tingling clarithromycin Allergy Unknown Verified 07/20/19 15:18 Reaction Details clindamycin Allergy Unknown Verified 07/20/19 15:18 Reaction Details codeine Allergy Unknown Verified 07/20/19 15:18 Reaction Details desogestrel Allergy Unknown Verified 07/20/19 15:18 Reaction Details donepezil Allergy Unknown Verified 07/20/19 15:18 Reaction Details doxycycline Allergy Unknown Verified 07/20/19 15:18 Reaction Details drospirenone Allergy Unknown Verified 07/20/19 15:18 Reaction Details duloxetine [From Cymbalta] Allergy Unknown Verified 07/20/19 15:18 Reaction Details eletriptan Allergy Unknown Verified 07/20/19 15:18 Reaction Details escitalopram Allergy Unknown Verified 07/20/19 15:18 Reaction Details ethinyl estradiol Allergy Unknown Verified 07/20/19 15:18 [From Jolessa] Reaction Details fluoxetine Allergy Unknown Verified 07/20/19 15:18 Reaction Details gabapentin Allergy Hives Verified 07/20/19 15:18 hydrocodone Allergy Unknown Verified 07/20/19 15:18 Reaction Details ibuprofen Allergy Unknown Verified 07/20/19 15:18 Reaction Details lamotrigine [From Lamictal] Allergy Unknown Verified 07/20/19 15:18 Reaction Details levofloxacin [From Levaquin] Allergy Unknown Verified 07/20/19 15:18 Reaction Details levonorgestrel [From Jolessa] Allergy Unknown Verified 07/20/19 15:18 Reaction Details lithium Allergy Unknown Verified 07/20/19 15:18 Reaction Details loratadine Allergy Unknown Verified 07/20/19 15:18 Reaction Details meloxicam Allergy Unknown Verified 07/20/19 15:18 Reaction Details metformin Allergy Unknown Verified 07/20/19 15:18 Reaction Details metoclopramide [From Reglan] Allergy Unknown Verified 07/20/19 15:18 Reaction Details naproxen Allergy Unknown Verified 07/20/19 15:18 Reaction Details norethindrone Allergy Unknown Verified 07/20/19 15:18 [From Necon 0.5/35 (21)] Reaction Details pioglitazone [From Actos] Allergy Unknown Verified 07/20/19 15:18 Reaction Details pregabalin Allergy Anaphylatic Verified 07/20/19 15:18 Shock propranolol Allergy Unknown Verified 07/20/19 15:18 Reaction Details red dye Allergy Unknown Verified 07/20/19 15:18 Reaction Details rizatriptan [From Maxalt] Allergy Unknown Verified 07/20/19 15:18 Reaction Details sertraline [From Zoloft] Allergy Unknown Verified 07/20/19 15:18 Reaction Details Sulfa (Sulfonamide Allergy Hives Verified 07/20/19 15:18 Antibiotics) sulfamethoxazole Allergy Unknown Verified 07/20/19 15:18 [From Bactrim] Reaction Details sumatriptan [From Imitrex] Allergy Unknown Verified 07/20/19 15:18 Reaction Details topiramate [From Topamax] Allergy Unknown Verified 07/20/19 15:18 Reaction Details tramadol Allergy Unknown Verified 07/20/19 15:18 Reaction Details trazodone Allergy Unknown Verified 07/20/19 15:18 Reaction Details trimethoprim [From Bactrim] Allergy Unknown Verified 07/20/19 15:18 Reaction Details venlafaxine [From Effexor] Allergy Unknown Verified 07/20/19 15:18 Reaction Details zolmitriptan [From Zomig] Allergy Unknown Verified 07/20/19 15:18 Reaction Details most antibiotic Allergy Unknown Anaphylatic Uncoded 07/20/19 15:18 Shock CI pigment blue Allergy Unknown Uncoded 07/20/19 15:18 Reaction Details sprintec Allergy Unknown Uncoded 07/20/19 15:18 Reaction Details triximet Allergy Unknown Uncoded 07/20/19 15:18 Reaction Details VINYL Allergy problems Uncoded 07/20/19 15:18 with breathing Home Medications: Home Medications Beclomethasone Dipropionate [Qnasl] 1 spray DAILY 07/20/19 [History Confirmed ] Hydroxychloroquine TAB* [Plaquenil TAB*] 200 mg PO BID 07/20/19 [History Confirmed 07/20/19] PMH/Surg Hx/FS Hx/Imm Hx - Additional Past Medical History Additional PMH: REcently diagnosed with lupus Previously Healthy: Yes Respiratory History: Asthma Other History Of: Negative For: HIV, Hepatitis B, Hepatitis C, Anticoagulant Therapy - Surgical History Surgical History: Yes Surgery Procedure, Year, and Place: leep procedure 2013, foot operation 2015, fundoplication, sinus endoscopy - Family History Known Family History: Positive: Cardiac Disease, Hypertension - Social History Occupation: Employed Full-time Lives: With Family Alcohol Use: None Substance Use Type: None Smoking Status (MU): Former Smoker Amount Used/How Often: 1 PPD X 6 MONTHS Have You Smoked in the Last Year: No When Did the Patient Quit Smoking/Using Tobacco: 2009 - Immunization History Most Recent Influenza Vaccination: unknown Hx Tetanus, Diphtheria Vaccination: Yes Vaccination Up to Date: Yes Review of Systems All Other Systems Reviewed And Are Negative: Yes Constitutional: Positive: Fever, Chills, Fatigue Skin: Positive: Negative Eyes: Positive: Negative ENT: Positive: Sore Throat, Sinus Congestion Respiratory: Positive: Cough Cardiovascular: Positive: Negative Gastrointestinal: Positive: Negative Genitourinary: Positive: Negative Motor: Positive: Negative Neurovascular: Positive: Negative Neurological: Positive: Headache, Weakness Psychological: Positive: Negative Is Patient Immunocompromised?: No Physical Exam Triage Information Reviewed: Yes Appearance: Ill-Appearing Vital Signs: Initial Vital Signs Temp 98 F 07/20/19 15:22 Pulse 99 07/20/19 15:22 Resp 16 07/20/19 15:22 BP 117/71 07/20/19 15:22 Pulse Ox 100 07/20/19 15:22 Vital Signs Reviewed: Yes Eye Exam: Normal ENT: Positive: Nasal congestion, Sinus tenderness Dental Exam: Normal Neck exam: Normal Respiratory: Positive: Respiratory distress, Wheezing Cardiovascular Exam: Normal Musculoskeletal Exam: Normal Neurological Exam: Normal Psychological Exam: Normal Skin Exam: Normal Respiratory Course/Dx - Differential Dx/Diagnosis Differential Diagnosis/HQI/PQRI: Bronchitis, Influenza, Sinusitis Provider Diagnosis: Sinusitis, Wheezing on both sides of chest Discharge ED - Sign-Out/Discharge Documenting (check all that apply): Patient Departure All imaging exams completed and their final reports reviewed: No Studies - Discharge Plan Condition: Stable Disposition: HOME Prescriptions: Azithromycin TAB* [Zithromax TAB (Z-LEILA) 250 mg #6 tabs] 2 tab PO .TODAY, THEN 1 DAILY #1 leila predniSONE [Prednisone 20 MG TAB] 20 mg PO DAILY #4 tablet Patient Education Materials: Sinusitis (ED), Wheezing (ED) Referrals: Sugey Johnson MD [Primary Care Provider] - As Soon As Possible - Billing Disposition and Condition Condition: STABLE Disposition: Home - Attestation Statements Provider Attestation: Per institutional requirements, I have reviewed the chart, however, I was not consulted specifically or made aware of this patient by the midlevel provider. I did not personally evaluate, interact with , or disposition this patient.
== END 2019-07-20 16:00 | disposition home or self-care (01) ==
LOC: UCCORT 14:49
DX: J32.9 Chronic sinusitis, unspecified (principal); R06.2 Wheezing; J45.909 Unspecified asthma, uncomplicated; J02.9 Acute pharyngitis, unspecified; R53.83 Other fatigue; Z88.8 Allergy status to other drugs, medicaments and biological substances; Z88.0 Allergy status to penicillin; Z88.1 Allergy status to other antibiotic agents; Z88.5 Allergy status to narcotic agent; Z88.6 Allergy status to analgesic agent; Z91.041 Radiographic dye allergy status; Z91.048 Other nonmedicinal substance allergy status; Z88.2 Allergy status to sulfonamides; Z87.891 Personal history of nicotine dependence
CPT/HCPCS: 99212; G0463

== ENCOUNTER 2019-09-06 15:57 | Emergency (ER) | payer BC ==
--- OUTSIDE RECORDS SUMMARY | 2019-09-06 16:51 | XMS REPORT | Summary of Care ---
:1985 Author Organization [facility] Address [address] [place] [address] Care Team Providers Name Role Phone Mary Freeman CLAIM SERVICE REPRESENTATIVE Primary Care Provider Reason for Visit Reason Comments Abnormal Lab Encounter Details Date Type Department Care Team Description 07/16/2019 Office Visit Hematology Oncology Jadon Martinez Iron deficiency [address] Tonie MD anemia, unspecified [place], [place] [address] [facility] iron deficiency anemia [id number] [facility] type [phone] [place] [address] [phone] Allergies Active Allergy Reactions Severity Noted Date [...] 08/25/2012 Levofloxacin 08/25/2012 Patient has tolerated cipro [place] 01/16/2019 Loratadine 08/25/2012 Rizatriptan Benzoate 08/25/2012 Meloxicam [...] as of this encounter (statuses as of 07/22/2019) Medications Medication Sig Dispensed Refills Start Date End Date Status Multiple Vitamin Take 1 tablet 0 Active (MULTIVITAMIN PO) by mouth daily. Calcium Citrate-Vitamin Take by mouth. 0 Active D (CALCIUM + D PO) EPINEPHrine (EPIPEN 0 11/03/2017 Active 1:1000) 0.3 MG/0.3ML SOAJ Tiotropium [place] Inhale 1.25 mcg 0 Active Monohydrate (SPIRIVA [...] with (polycystic ovarian breakfast Patient syndrome) needs mastic man Amneal metroNIDAZOLE (METROGEL) 1 applicator 70 g [...] as of this encounter (statuses as of 07/22/2019) Active Problems Patient Care Coordination Note Pt discharged herself from [facility]. 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 smear of cervix 12/18/2012 10/05/2018 Abdominal pain 09/15/2012 10/05/2018 Dizziness 07/07/2012 10/05/2018 Migraine 10/05/2018 Fatigue 10/05/2018 documented as of this encounter (statuses as of 07/22/2019) Immunizations Name Administration Dates Next Due Influenza [...] Sign Reading Time Taken Comments Blood Pressure - - Pulse 99 07/16/2019 1:12 PM EST Temperature 36.7 07/16/2019 1:12 C (98 PM EST F) Respiratory Rate 18 07/16/2019 1:12 PM EST Oxygen Saturation 100% 07/16/2019 1:12 ra PM EST Inhaled Oxygen - - Concentration Weight 83 kg (183 lb) 07/16/2019 1:12 pt refused so took PM EST from last visit with primary Height - - Body Mass Index 28.66 07/13/2019 8:40 AM EST documented in this encounter Progress Notes Jadon Martinez MD - 07/16/2019 12:30 PM EST Hematology/Oncology Follow Up Note Diagnosis: 1. Iron deficiency anemia, unspecified iron deficiency anemia type HPI: Shannan Paula is a 34 y.o. female With HO LUKE comes for f/u. 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 She refused band aid after attempted lab draw and later says she is frustrated about the care here. She says that no body even offeredband aid in a patient with lupus and open wound due to attempted blood draw. Subjective: Past Medical and Surgical History Past Medical History: Diagnosis Date Asthma Borderline diabetes Fatigue GERD (gastroesophageal reflux disease) Goiter Noy thyroiditis Migraine Polycystic ovarian syndrome Family and Social History Shannan Paula family history includes Cancer in her paternal grandmother; Intellectual Disability inher mother; Mental illness in her brother, father, and mother; Migraines in her brother; Personalitydisorder in her brother. She reports that she quit smoking about 9 years ago. She smoked 0.00 packsper day for 2.00 years. She has never used smokeless tobacco. She reports that she does not drink alcohol or use drugs. Medications and Allergies Allergies Allergen Reactions Amoxicillin Hives and Anaphylaxis [...] D5w] Levofloxacin Levofloxacin Patient has tolerated cipro [place] Loratadine Maxalt [Rizatriptan Benzoate] Meloxicam Metformin Metoclopramide [...] (See Comments) Gets angry Current Outpatient Medications on File Prior to [...] by mouth daily with breakfast Patient needs mastic man Amneal 30 tablet 11 Hydroxychloroquine Sulfate 200 MG Oral Tablet (PLAQUENIL) Take 1 tablet by mouth Two Times Daily 60 tablet 3 metroNIDAZOLE (METROGEL) 0.75 % vaginal gel 1 applicator vaginally every night for 5 nights (Patient not taking: Reported on 07/16/2019) 70 g 2 Multiple Vitamin (MULTIVITAMIN PO) Take 1 tablet by mouth daily. ondansetron (ZOFRAN-ODT) 4 MG disintegrating tablet Take 1 tablet by mouth every 8 (eight) hours as needed for Nausea (Patient not taking: Reported on 07/16/2019) 45 tablet 6 Pantoprazole Sodium 40 MG Oral Tablet Delayed Release (PROTONIX) TAKE 1 TABLET BY MOUTH TWICEDAILY 180 tablet 0 progesterone (PROMETRIUM) 100 MG capsule Take 1 capsule by mouth nightly PRN bleeding (Patient not taking: Reported on 07/16/2019) 30 capsule 11 raNITIdine HCl 300 MG Oral Tablet (ZANTAC) TAKE 1 TABLET BY MOUTH AT BEDTIME 90 tablet 10 Sodium Chloride-Sodium Bicarb 2300-700 MG PACK 50 mLs by Nasal route Two Times Daily 100 each12 Tiotropium [place] Monohydrate (SPIRIVA RESPIMAT) 1.25 MCG/ACT AERS Inhale 1.25 mcg into the lungs Verapamil HCl 40 MG Oral Tablet (CALAN) TAKE 1 TABLET BY MOUTH TWICE A DAY 180 tablet 1 No current facility-administered medications on file prior to visit. Review of Systems Aches and pain everywhere Objective: Vitals: Vitals - 1 value per visit 07/13/2019 07/16/2019 07/16/2019 SYSTOLIC 116 - 118 DIASTOLIC 78 - 74 PULSE 100 99 - TEMPERATURE 98.5 98 99.8 RESPIRATIONS 18 18 - Weight (kg) 83.008 kg 83.008 kg - HEIGHT 170.2 cm - 170.2 cm SPO2 - 100 - BODY MASS INDEX 28.66 kg/m2 28.66 kg/m2 28.66 kg/m2 PAIN SCALE - SCORE 6 9 - PAIN SCALE - LOCATION HEAD GENERALIZED - LAST MENSTRUAL PERIOD 07/06/2019 - - Some recent data might be hidden Physical Exam Awake and alert; oriented to time, place and person HEENT: PERRL EOMI, anicteric sclerae, no pallor Oral mucosa moist: no mucositis or thrush Neck: No thyromegaly, JVD or adenopathy Lungs CTA Heart: No murmurs or gallops; regular heart sounds Abdomen: Soft NT ND pos bowel sounds all quandrants; no organomegaly; Extremities - no cyanosis clubbing or edema Skin: no open sores Imaging No results found. Lab Review Lab Results 06/01/19 WBC: 7.9 RBC: 4.65 HGB: 14.5 HCT: 44.3 MCV: 95.2 MCH: 31.2 MCHC: 32.8 RDW: 12.9 PLT: 300 NEUTR PCT: 61 LYMPH PCT: 32 MONO PCT: 6 EOS PCT: 0 BASO MANUAL: 1 NEUTR ABS: 4.81 LYMPH ABS: 2.53 MONO ABS: 0.44 BASO ABS: 0.06 Tumor Markers Lab Results Component Value Date FSH 2.6 11/18/2016 Assessment: Chai is a 34 YO F with LUKE and multiple endocrine problems who was treated with IV iron In 05/2018 comes for 6 months f/u. Patient is difficult stick, 2 attempts 2 draw labs were unsuccessful. Patient is visibly frustratedand refusing further attempts. She looks nice & pink and has no s/s of anemia, bleeding. Patient wants to have lab drawn with her PCP and fax results to Dr. Peterson. RTC [address] Peterson with CBC and Iron panel. Jadon Martinez MD Hematology/Oncology [phone] documented in this encounter Plan of Treatment Date Type Specialty Care Team Description 09/17/2019 Initial consult Otolaryngology Rose Sierra MD [address] [place] [address] [place] [address] [phone] 09/30/2019 Office Visit Family Medicine Mary Freeman, FILIBERTO [address] [place] [address] [phone] 10/05/2019 Office Visit Rheumatology Jeannie Morrison MD [address] [facility] [address] [place] [address] [phone] Name Type Priority Associated Diagnoses Order Schedule CBC and Differential Lab STAT Iron deficiency anemia, 1 Occurrences starting unspecified iron 07/16/2019 until deficiency anemia type 01/15/2020 Ferritin Lab STAT Iron deficiency anemia, 1 Occurrences starting unspecified iron 07/16/2019 until deficiency anemia type 01/15/2020 Health Maintenance Due Date Last Done Comments [...] of this encounter Implants Implanted Type Area Equity Holder Device Shelf Expiration Model / Serial Identifier Date / Lot Graft Allomax 2cm X 4cm. - [id number] Nose [employer] 04/16/2023 [id number] / Implanted: Qty: 1 on 01/14/2019 by Jasbir Moran MD at [facility] [id number] / [id number] documented as of this encounter Results Not on filedocumented in this encounter Visit Diagnoses Diagnosis Iron deficiency anemia, unspecified iron deficiency anemia type documented in this encounter
--- OUTSIDE RECORDS SUMMARY | 2019-09-06 16:51 | XMS REPORT | Continuity of Care Document ---
:1985 External Reference #:[id number] Author Name Sherry Peters M.D. Address [address] [place] [id number] Care Team Providers Name Role Phone Mary Freeman NP Care Team Information Polisher Dial [phone] Problems Active Problems Provider Date Chronic rhinitis [...] Ordering Date Provider Symbicort 2 puffs 10.200gm J45.40 Sherry Armstrong 160-4.5mcg/Act inhalation twice Vickie Peters 0 Aerosol a day Levocetirizine Take 1 Tablet By 90tabs J30.89 Paty Dihydrochloride Mouth Every Day MALINA Cordero 9 5mg Tablets Ventolin HFA 2 puffs every 4 18gm Paty 108(90Base) hours as needed MALINA Cordero 8 mcg/Act Aerosol for cough, shortness of breath or chest tighntess Verapamil HCL once a day Unknown 80mg Tablets 0 Glumetza once a day Unknown 500mg Tablets ER 0 24HR Pantoprazole Sodium Unknown 40mg [address] Hassan 2-Michael use as directed 2units Paty 0.3mg/0.3ML MALINA Cordero 0 Solution Auto-Inject Ranitidine HCL MestadItalo, 300mg Tablets MD 0 Apri Unknown 0.15-30mg-mcg Tablets 0 Zyrtec Allergy 1 every day Unknown 10mg Tablets 0 Spiriva Respimat 2 puffs once 1units Lisa Santana, 1.25mcg/Act daily RPA-C 0 Aerosol Ondansetron MestadItalo, 4mg Tablets MD 0 Dispers Hydroxychloroquine 1 tab by mouth Unknown 00/00/000 Sulfate twice daily. 0 200mg Tablets Symbicort 2 inhalations 10.200gm Sherry Armstrong 160-4.5mcg/Act am&pm Hailey Peters M.D. 0 Aerosol copay card Id [id number], Bin [id number], Group [id number], PCN CN Qnasl 1-2 sprays in Unknown 80mcg/Act Aerosol each nostril 0 daily Medications Administered in Office Medication SIG Qnty Indications Ordering Provider Date Injection Allergy Injection 05/26/2019 Injection Immunizations CPT Code Status Date Vaccine Lot # [id number] Given Unknown Pneumococcal Vaccine 98242 Given Unknown Influenza Vaccine 90582 Given Unknown Influenza Vaccine 55110 Given Unknown Influenza Vaccine Vital Signs Date Vital Result Comment 08/10/2019 11:42am Height 66.5 inches 5'6.50" Weight 185.00 lb Weight 83.916 kg Respiratory Rate 12 /min Heart Rate 85 /min O2 % BldC Oximetry 97 % BP Systolic 106 mmHg BP Diastolic 69 mmHg Asthma Control Test 17 Fractional Exhaled Nitric Oxide 8 BMI (Body Mass Index) 29.4 kg/m2 06/30/2019 3:00pm Height 66.5 inches 5'6.50" Weight 180.00 lb Weight 81.648 kg Respiratory Rate 75 /min Heart Rate 81 /min O2 % BldC Oximetry 99 % BP Systolic 107 mmHg BP Diastolic 69 mmHg BMI (Body Mass Index) 28.6 kg/m2 Results Description No Information Available Procedures Date Code Description Status 08/10/2019 42040 Nitric Oxide Gas Determination Completed 06/30/2019 64492 Ippb Completed 05/26/2019 38094 Injection Completed 05/20/2019 68273 Skin Test Scratch # Of Units ____ Completed 04/06/2019 05990 Nitric Oxide Gas Determination Completed 03/17/2019 12885 Ippb Completed 03/12/2019 93745 Ippb Completed 02/08/2019 93727 Pre PFT Completed Medical Devices Description No Information Available Encounters Type Date Location Provider Dx Diagnosis Office Visit 08/10/2019 [place] Sherry Armstrong J45.40 Moderate persistent 11:40a Cheryl Peters. asthma, uncomplicated J30.89 Other allergic rhinitis J30.2 Other seasonal allergic rhinitis J30.81 Allergic rhinitis due to animal (cat) (dog) hair and dander J30.1 Allergic rhinitis due to pollen J31.0 Chronic rhinitis L27.2 Dermatitis due to ingested food Office Visit 06/30/2019 3:00p [facility] Paty J45.40 Moderate persistent Uldrich, [employer] asthma, uncomplicated J30.89 Other allergic rhinitis J30.2 Other seasonal allergic rhinitis J30.81 Allergic rhinitis due to animal (cat) (dog) hair and dander J30.1 Allergic rhinitis due to pollen Office Visit 06/25/2019 11:40a [place] Sherry Peters J30.89 Other allergic M.D. rhinitis J30.2 Other seasonal allergic rhinitis J30.81 Allergic rhinitis due to animal (cat) (dog) hair and dander J45.40 Moderate persistent asthma, uncomplicated Office Visit 05/20/2019 11:20a [place] Jeffrey Self30.89 Other allergic [employer] rhinitis J45.40 Moderate persistent asthma, uncomplicated J31.0 Chronic rhinitis J30.1 Allergic rhinitis due to pollen J30.81 Allergic rhinitis due to animal (cat) (dog) hair and dander Office Visit 04/06/2019 8:40a [facility] Sherry Armstrong J30.89 Other allergic Vickie Peters rhinitis J45.40 Moderate persistent asthma, uncomplicated J31.0 Chronic rhinitis Office Visit 03/17/2019 11:00a [facility] Paty Cordero J30.89 Other allergic [employer] rhinitis J45.40 Moderate persistent asthma, uncomplicated J31.0 Chronic rhinitis Office Visit 03/12/2019 11:00a [place] Paty Cordero J30.89 Other allergic [employer] rhinitis J30.1 Allergic rhinitis due to pollen Office Visit 02/08/2019 11:40a [place] Paty Cordero J45.41 Moderate persistent [employer] asthma with (acute) exacerbation J45.40 Moderate persistent asthma, uncomplicated J30.89 Other allergic rhinitis J30.1 Allergic rhinitis due to pollen J32.8 Other chronic sinusitis Assessments Date Code Description Provider 08/10/2019 J45.40 Moderate persistent asthma, uncomplicated Sherry Peters M.D. 08/10/2019 J30.89 Other allergic rhinitis Sherry Peters M.D. 08/10/2019 J30.2 Other seasonal allergic rhinitis Sherry Peters M.D. 08/10/2019 J30.81 Allergic rhinitis due to animal (cat) (dog) Sherry Peters M.D. hair and dander 08/10/2019 J30.1 Allergic rhinitis due to pollen Sherry Peters M.D. 08/10/2019 J31.0 Chronic rhinitis Sherry Peters M.D. 08/10/2019 L27.2 Dermatitis due to ingested food Sherry Peters M.D. 06/30/2019 J45.40 Moderate persistent asthma, uncomplicated Sherry Peters M.D. 06/30/2019 J45.40 Moderate persistent asthma, uncomplicated Sherry Peters M.D. 06/30/2019 J45.40 Moderate persistent asthma, uncomplicated Patyfreddie Cordero , [employer] 06/30/2019 J30.89 Other allergic rhinitis Sherry Peters M.D. 06/30/2019 J30.89 Other allergic rhinitis Paty Ulich, [employer] 06/30/2019 J30.2 Other seasonal allergic rhinitis Sherry Peters M.D. 06/30/2019 J30.2 Other seasonal allergic rhinitis Paty Uldrich, [employer] 06/30/2019 J30.81 Allergic rhinitis due to animal (cat) (dog) Sherry Peters M.D. hair and dander 06/30/2019 J30.81 Allergic rhinitis due to animal (cat) (dog) Paty Uldrich, [employer] hair and dander 06/30/2019 J30.1 Allergic rhinitis due to pollen Paty Uldrich, [employer] 06/25/2019 J30.89 Other allergic rhinitis Sherry Peters [...] M.D. 05/20/2019 J30.89 Other allergic rhinitis Paty Cordero, [employer] 05/20/2019 J45.40 Moderate persistent asthma, uncomplicated Sherry Peters M.D. 05/20/2019 J45.40 Moderate persistent asthma, uncomplicated Patyalda Cordero , [employer] 05/20/2019 J31.0 Chronic rhinitis Sherry Peters M.D. 05/20/2019 J31.0 Chronic rhinitis Patyalda Cordero, [employer] 05/20/2019 J30.1 Allergic rhinitis due to pollen Sherry Peters M.D. 05/20/2019 J30.1 Allergic rhinitis due to pollen Patyalda Cordero, [employer] 05/20/2019 J30.81 Allergic rhinitis due to animal (cat) (dog) Sherry Peters M.D. hair and dander 05/20/2019 J30.81 Allergic rhinitis due to animal (cat) (dog) Patyalda Cordero, [employer] hair and dander 04/06/2019 J30.89 Other allergic rhinitis Sherry Peters M.D. 04/06/2019 J45.40 Moderate persistent asthma, uncomplicated Sherry Peters M.D. 04/06/2019 J31.0 Chronic rhinitis Sherry Peters M.D. 03/17/2019 J30.89 Other allergic rhinitis Sherry Peters M.D. 03/17/2019 J30.89 Other allergic rhinitis Paty Uldrich, [employer] 03/17/2019 J45.40 Moderate persistent asthma, uncomplicated Sherry Peters M.D. 03/17/2019 J45.40 Moderate persistent asthma, uncomplicated Paty Uldrich , [employer] 03/17/2019 J31.0 Chronic rhinitis Sherry Peters M.D. 03/17/2019 J31.0 Chronic rhinitis Paty Uldrich, [employer] 03/12/2019 J30.89 Other allergic rhinitis Sherry Peters M.D. 03/12/2019 J30.89 Other allergic rhinitis Paty Uldrich, [employer] 03/12/2019 J30.1 Allergic rhinitis due to pollen Sherry Peters M.D. 03/12/2019 J30.1 Allergic rhinitis due to pollen Paty Uldemond, [employer] 02/08/2019 J45.41 Moderate persistent asthma with (acute) Sherry Peters M.D. exacerbation 02/08/2019 J45.41 Moderate persistent asthma with (acute) Sherry Peters M.D. exacerbation 02/08/2019 J45.40 Moderate persistent asthma, uncomplicated Sherry Peters M.D. 02/08/2019 J45.41 Moderate persistent asthma with (acute) Paty Uldemond, [employer] exacerbation 02/08/2019 J45.40 Moderate persistent asthma, uncomplicated Sherry Peters M.D. 02/08/2019 J45.40 Moderate persistent asthma, uncomplicated Paty Uldrich , [employer] 02/08/2019 J30.89 Other allergic rhinitis Sherry Peters M.D. 02/08/2019 J30.89 Other allergic rhinitis Paty Uldrich, [employer] 02/08/2019 J30.1 Allergic rhinitis due to pollen Sherry Peters M.D. 02/08/2019 J30.1 Allergic rhinitis due to pollen Paty Ulich, [employer] 02/08/2019 J32.8 Other chronic sinusitis Paty Uldrich, [employer] Plan of Treatment Future Appointment(s):09/21/2019 11:20 am - Sherry Peters M.D. at [place] [id number]/ - Sherry Peters M.D.J45.40 Moderate persistent asthma, jguyfcqrwymrcV39.89 Other allergic eewwvjweM74.2 Other seasonal allergic fonzkqdgF24.81 Allergic rhinitis due to animal (cat) (dog) hair and cbiuneJ90.1 Allergic rhinitis due to prukcnN38.0 Chronic bmkufgkuX79.2 Dermatitis due to ingested foodNew Medication:Symbicort 160-4.5 mcg/ActFollow up:6 weeks, CHECK- UP/FOLLOW UP VISIT: Continued management of patient's medical care.Recommendations:Refrain from wearing perfumes/scented colognes while visiting our office. continue Symbicort - use 160/4.5 2 puffs twice daily; consider reducing in the spring; rinse mouth after use Use Albuterol 2 puffs every 4 hours as needed for cough, wheezing shortness of breath or chest tightness OR 15 mins prior to exercise. Call if using >2x/week aside from pre-exercise. continue Spiriva 2 puffs once daily continue Levocetirizine 5 mg once daily as needed continue Flonase sensimist 2 sprays to each nostril once daily or Qnasl 2 sprays 2 each nostril once daily continue sinus rinses Continue strictavoidance of shellfish. labs to avoided foods limitations of food testing discussed Refer to your emergency plan in case of accidental ingestion/exposure. EpiPen pt has; indications for use reviewed and technique demonstrated Refer to [email or web address] for further information. do not recommendIT continue ENT, rheumatology, PCP f/u Functional Status Description No Information Available Mental Status Description No Information Available Referrals Description No Information Available
--- OUTSIDE RECORDS SUMMARY | 2019-09-06 16:51 | XMS REPORT | Summary of Care ---
:1985 Author Organization [facility] Address [address] [place] [address] Care Team Providers Name Role Phone Mary Freeman SWING FRAME GRINDER OPERATOR Primary Care Provider Reason for Referral Diagnostic Lab (Routine) Status Reason Specialty Diagnoses / Procedures Referred By Contact Referred To Contact Open Diagnoses Diarrhea, unspecified type Mary Freeman, SWING FRAME GRINDER OPERATOR Procedures Community-Acquired Diarrhea Panel [address] [address] Email: [email or web address] Reason for Visit Reason Comments Fever Cough Emesis Diarrhea Abdominal Pain Encounter Details Date Type Department Care Team Description 07/24/2019 Office Visit [facility] Family Medicine Mary Freeman, Diarrhea, unspecified type (Primary Dx); [address] SWING FRAME GRINDER OPERATOR Nausea [address] [place] [address] [phone] [place] [id number] [phone] Allergies Active Allergy Reactions Severity Noted Date [...] 08/25/2012 Levofloxacin 08/25/2012 Patient has tolerated cipro Burley 01/16/2019 Loratadine 08/25/2012 Rizatriptan Benzoate 08/25/2012 Meloxicam [...] as of this encounter (statuses as of 07/24/2019) Medications Medication Sig Dispensed Refills Start Date End Date Status Multiple Vitamin Take 1 tablet by 0 Active (MULTIVITAMIN PO) mouth daily. Calcium Take by mouth. 0 Active Citrate-Vitamin D (CALCIUM + D PO) EPINEPHrine (EPIPEN 0 11/03/2017 Active 1:1000) 0.3 MG/0.3ML SOAJ Tiotropium [place] Inhale 1.25 mcg 0 Active Monohydrate (SPIRIVA into the lungs RESPIMAT) 1.25 MCG/ACT AERS albuterol (VENTOLIN Inhale into the 0 08/12/2017 Active HFA) 108 (90 Base) lungs MCG/ACT inhaler budesonide-formoterol Inhale into the 0 Active (SYMBICORT) 80-4.5 lungs MCG/ACT inhaler fluticasone (FLONASE) 2 sprays by 16 g 12 02/01/2019 01/31/2020 Active 50 MCG/ACT nasal spray Nasal route Two Times Daily Additional information Patient not taking. 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 Reported on 07/24/2019 11:16 AM Sodium Chloride-Sodium Bicarb 50 mLs by Nasal route 100 each 12 05/21/2019 Active 2300-700 MG PACK Two Times Daily Additional information Patient not taking. Reported on 07/24/2019 11:16 AM Apri 0.15-30 MG-MCG Oral TAKE 1 TABLET BY 84 tablet 8 05/27/2019 Active Tablet (desogestrel-ethinyl MOUTH ONCE DAILY estradiol)Indications: PCOS (polycystic ovarian syndrome) raNITIdine HCl 300 MG Oral TAKE 1 TABLET BY 90 tablet 10 06/03/2019 Active Tablet (ZANTAC)Indications: MOUTH AT BEDTIME Gastric ulcer without hemorrhage or perforation, unspecified chronicity Verapamil HCl 40 MG Oral TAKE 1 TABLET BY 180 tablet 1 06/15/2019 Active Tablet (CALAN) MOUTH TWICE A DAY Hydroxychloroquine Sulfate Take 1 tablet by 60 tablet 3 06/22/201906/20/ 200 MG Oral Tablet mouth Two Times 2019 (PLAQUENIL)Indications: Pain Daily in both hands Pantoprazole Sodium 40 MG TAKE 1 TABLET BY 180 tablet 0 07/15/2019 Active Oral Tablet Delayed Release MOUTH TWICE DAILY (PROTONIX)Indications: Gastric ulcer without hemorrhage or perforation, unspecified chronicity Beclomethasone Dipropionate 2 sprays by Nasal 10.6 g 5 07/16/2019 Active 80 MCG/ACT Nasal Aerosol route daily SolutionIndications: Sinus congestion, Nasal congestion Terconazole 0.8 % Vaginal INSERT ONE 20 g 1 07/16/2019 Active Cream (TERAZOL APPLICATORFUL 3)Indications: Yeast VAGINALLY AT vaginitis BEDTIME UNTIL TUBE IS EMPTY Levocetirizine Take by mouth daily 0 07/22/2019 Active Dihydrochloride 5 MG Oral Tablet (XYZAL) predniSONE 20 MG Oral Tablet 0 07/20/2019 Active (DELTASONE) documented as of this encounter (statuses as of 07/24/2019) Active Problems Patient Care Coordination Note Pt discharged herself from [facility]. 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 smear of cervix 12/18/2012 10/05/2018 Abdominal pain 09/15/2012 10/05/2018 Dizziness 07/07/2012 10/05/2018 Migraine 10/05/2018 Fatigue 10/05/2018 documented as of this encounter (statuses as of 07/24/2019) Immunizations Name Administration Dates Next Due Influenza [...] Sign Reading Time Taken Comments Blood Pressure 108/72 07/24/2019 11:06 AM EST Pulse 96 07/24/2019 11:06 AM EST Temperature 36.4 07/24/2019 11:06 AM EST C (97.5 F) Respiratory Rate 18 07/24/2019 11:06 AM EST Oxygen Saturation 98% 07/24/2019 11:06 AM EST Inhaled Oxygen Concentration - - Weight 84.6 kg (186 lb 6.4 oz) 07/24/2019 11:06 AM EST Height 170.2 cm (5' 7.01") 07/24/2019 11:06 AM EST Body Mass Index 29.19 07/24/2019 11:06 AM EST documented in this encounter Patient Instructions Patient InstructionsMary Freeman NP - 07/24/2019 11:00 AM ESTPatient Education Patient Education Independence Diet Your healthcare provider may recommend a bland dietif you have an upset stomach. It consists of foods that are mild and easy to digest. It is better to eat small frequent meals rather than3 large meals a day. Beverages OK: Fruit juices, non-caffeinated teas and coffee, non-carbonated mccoy Avoid: Carbonated beverage, caffeinated tea and coffee, all alcoholic beverages Bread OK: Refined white, wheat or rye bread, shawn or soda crackers, [place] toast, plain rolls, bagels Avoid: Whole-grain bread Cereal OK: Refined cereals: cooked or ready to eat Avoid: Whole-grain cereals and granola, or those containing bran, seeds or nuts Desserts OK: Peanut butter and all others except those to "avoid" Avoid: Chocolate, cocoa, coconut, popcorn, nuts, seeds, jam, marmalade Fruits OK: Canned, cooked, frozen or fresh fruits without seeds or tough skin Avoid: Olives, skin and seeds of fruit, dried fruit Meats OK: All fresh or preserved meat, fish and fowl Avoid: Any that are prepared with those spices to "avoid" Cheese and eggs OK: Eggs, cottage cheese, cream cheese, other cheeses Avoid: All cheeses made with those spices to "avoid" Potatoes and pasta OK: Potato, rice, macaroni, noodles, spaghetti Avoid: None Soups OK: All soups without heavy seasoning Avoid: Soups made with those spices to "avoid" Vegetables OK: Canned, cooked, fresh or frozen mildly flavored vegetables without seeds, skins or coarse fiber Avoid: Vegetables prepared with those spices to "avoid"; skin and seeds of vegetables and those withcoarse fiber, broccoli, cabbage, cauliflower, cucumber , green peppers, and corn Spices OK: Salt, lemon and limejuice, vinegar, all extracts, gloria, cinnamon, thyme, mace, allspice, paprika Avoid: Pisek powder, cloves, pepper, seed spices, garlic, gravy pickles, highly seasoned salad dressings Date Last Reviewed: 11/18/201719992709-6683 The [employer]. [address] [place] [address]. All rights reserved. This information is not intended as a substitute for professional medical care. Always follow your healthcare professional's instructions. Diarrhea with Uncertain Cause (Adult) Diarrhea is when stools are loose and watery. This can be caused by: Viral infections Bacterial infections Food poisoning Parasites Irritable bowel syndrome (IBS) Inflammatory bowel diseases such as ulcerative colitis, Crohn's disease, and celiac disease Food intolerance, such as to lactose, the sugar found in milk and milk products Reaction to medicines like antibiotics, laxatives, cancer drugs, and antacids Along with diarrhea, you may also have: Abdominal pain and cramping Nausea and vomiting Loss of bowel control Fever and chills Bloody stools In some cases, antibiotics may help to treat diarrhea. You may have a stool sample test. This is done to see what is causing your diarrhea, and if antibiotics will help treat it. The results of a stoolsample test may take up to 2 days. The healthcare provider may not give you antibiotics until he or she has the stool test results. Diarrhea can cause dehydration. This is the loss of too much water and other fluids from the body. When this occurs, body fluid must be replaced. This can be done with oral rehydration solutions. Oral rehydration solutions are available at drugstores and grocery stores without a prescription. Sports drinks are not the best choice if you are very dehydrated. They have too much sugar and not enough electrolytes. Home care Follow all instructions given by your healthcare provider. Rest at home for the next 24 hours, or until you feel better. Avoid caffeine, tobacco, and alcohol. These can make diarrhea, cramping, and pain worse. If taking medicines: Zysq-oxe-bmdbxtk nausea and diarrhea medicines are generally OK unless you experience fever or blood stool. Check with your doctor first in those circumstances. You may use acetaminophen or NSAID medicines like ibuprofen or naproxen to reduce pain and fever. Dont use these if you have chronic liver or kidney disease, or ever had a stomach ulcer or gastrointestinalbleeding. Don't use NSAID medicines if you are already taking one for another condition (like arthritis) or are on daily aspirin therapy (such as for heart disease or after a stroke).Talk with your healthcare provider first. If antibiotics were prescribed, be sure you take them until they are finished. Dont stop taking them even when you feel better. Antibiotics must be taken as a full course. To prevent the spread of illness: Remember that washing with soap and water and using alcohol-based audit partner is the best way to prevent the spread of infection. Dry your hands with a single use towel (like a paper towel). Clean the toilet after each use. Wash your hands before eating. Wash your hands before and after preparing food. Keep in mind that people with diarrhea or vomiting should not prepare food for others. Wash your hands after using cutting boards, countertops, and knives that have been in contact with raw foods. Wash and then peel fruits and vegetables. Keep uncooked meats away from cooked and bgbiw-bq-gdk foods. Use a food thermometer when cooking. Cook poultry to at least 165F (74 C). Cook ground meat (beef, veal, pork, golden) to at least 160F (71C) . Cook fresh beef, veal, golden, and pork toat least 145F (63C). Dont eat raw or undercooked eggs (poached or maxine side up), poultry , meat, or unpasteurized milk and juices. Food and drinks The main goal while treating vomiting or diarrhea is to prevent dehydration. This is done by taking small amounts of liquids often. Keep in mind that liquids are more important than food right now. Drink only small amounts of liquids at a time. Dont force yourself to eat, especially if you arehaving cramping , vomiting, or diarrhea. Dont eat large amounts at a time, even if you are hungry. If you eat, avoid fatty, greasy, spicy, or fried foods. Dont eat dairy foods or drink milk if you have diarrhea.These can makediarrhea worse. During the first 24 hours you can try: Oral rehydration solutions. Sports drinks may be used if you are not too dehydrated and areotherwise healthy. Soft drinks without caffeine Mylene manda Water (plain or flavored) Decaf tea or coffee Clear broth, consomm, or bouillon Gelatin, popsicles, or frozen fruit juice bars The second 24 hours, if you are feeling better, you can add: Hot cereal, plain toast, bread, rolls, or crackers Plain noodles, rice, mashed potatoes, chicken noodle soup, or rice soup Unsweetened canned fruit (no pineapple) Bananas As you recover: Limit fat intake to less than 15 grams per day. Dont eat margarine, butter, oils, mayonnaise, sauces, gravies, fried foods, peanut butter, meat, poultry, or fish. Limit fiber. Dont eat raw or cooked vegetables, fresh fruits except bananas, or bran cereals. Limit caffeine and chocolate. Limit dairy. Dont use spices or seasonings except salt. Go back to your normal diet over time, as you feel better and your symptoms improve. If the symptoms come back, go back to a simple diet or clear liquids. Follow-up care Follow up with your healthcare provider, or as advised. If a stool sample was taken or cultures weredone, call the healthcare provider for the results as instructed. Call 911 Call 911 if you have any of these symptoms: Trouble breathing Confusion Extreme drowsiness or trouble walking Loss of consciousness Rapid heart rate Chest pain Stiff neck Seizure When to seek medical advice Call your healthcare provider right away if any of these occur: Abdominal pain that gets worse Constant lower right abdominal pain Continued vomiting and inability to keep liquids down Diarrhea more than 5 times a day Blood in vomit or stool Dark urine or no urine for 8 hours, dry mouth and tongue, tiredness, weakness, or dizziness Drowsiness New rash You dont get better in 2 to 3 days Fever of 100.4F (38C) or higher, or as directed by your healthcare provider Date Last Reviewed: 12/19/201719991473-8520 The [employer]. [address] [place] [address], [place] [address]. All rights reserved. This information is not intended as a substitute for professional medical care. Always follow your healthcare professional's instructions. documented in this encounter Progress Notes Mary Freeman NP - 07/24/2019 11:00 AM EST Subjective: Chief Complaint Patient presents with Fever Cough Emesis Diarrhea Abdominal Pain Ermelinda Zhou LPN 07/24/2019 11:18 AM Signed Patient presents with fever and dry cough. The patient was evaluated at Urgent Care and has been prescribed Azithromycin and Prednisone with no relief. The patient states she has been up all night withvomiting and diarrhea. The patient states she was recently diagnosed with Lupus. The patient states she did take Tylenol this morning. The patient wonders if she has C-diff due to have diarrhea off and on since April 2019. Patient Understanding of Meds Patient expressed understanding of all medications Patient Difficulty Taking Meds The patient is not having difficulty taking medication as prescribed Medication Side Effects The patient is not experiencing side effects Patient ID: Shannan Paula is a 34 y.o. female. HPI: Patient presents today for concerns of ongoing bronchitis and sinusitis symptoms. Patient report she sought treatment at [facility] in [place] for Urgent Care, she statesshe was diagnosed with bronchitis and sinusitis, she was prescribed traditional Z josselyn and Prednisone, she reports she has had no relief in her symptoms, she reports she has 1 dose of the Z josselyn and Prednisone left today Patient reports her cough is improved but her chest still feels tight, she reports her biggest concern today is sudden occurrence of diarrhea, she reports diarrhea beginning last evening after a meal, she has had had stomach upset, bloating, and discomfort, she reports this has been the worst stomach pain of her life, she has associated dizziness, she took OTC Imodium last evening, last stool last night at 11pm, she reports she was told by other specialities she may get cdiff due to frequent ABX use, she reports brown water stool, feeling diaphoretic last night, she has been taking OTC Tylenol for intermittent fever Shannan has a past medical history of [...] which includes the following prescription(s): albuterol, apri, beclomethasone dipropionate, budesonide-formoterol, calcium citrate-vitamin d, epinephrine, glumetza, hydroxychloroquine, metronidazole, multiple vitamins-minerals, ondansetron, pantoprazole, progesterone,ranitidine, terconazole, tiotropium bromide monohydrate, verapamil, azelastine, fluticasone , levocetirizine, prednisone, and sodium chloride-sodium bicarb. Current Outpatient Medications on File Prior to Visit Medication Sig Dispense Refill albuterol (VENTOLIN HFA) 108 (90 Base) MCG/ACT inhaler Inhale into the lungs Apri 0.15-30 MG-MCG Oral Tablet (desogestrel-ethinyl estradiol) TAKE 1 TABLET BY MOUTH ONCE DAILY 84 tablet 8 Beclomethasone Dipropionate 80 MCG/ACT Nasal Aerosol Solution 2 sprays by Nasal route daily 10.6 g 5 budesonide-formoterol (SYMBICORT) 80-4.5 MCG/ACT inhaler Inhale into the lungs Calcium Citrate-Vitamin D (CALCIUM + D PO) Take by mouth. 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 Amneal 30 tablet 11 Hydroxychloroquine Sulfate 200 [...] as needed for Nausea 45 tablet 6 Pantoprazole Sodium 40 MG Oral Tablet Delayed Release (PROTONIX) TAKE 1 TABLET BY MOUTH TWICEDAILY 180 tablet 0 progesterone (PROMETRIUM) 100 MG capsule Take 1 capsule by mouth nightly PRN bleeding 30 capsule 11 raNITIdine HCl 300 MG Oral Tablet (ZANTAC) TAKE 1 TABLET BY MOUTH AT BEDTIME 90 tablet 10 Terconazole 0.8 % Vaginal Cream (TERAZOL 3) INSERT ONE APPLICATORFUL VAGINALLY AT BEDTIME UNTIL TUBE IS EMPTY 20 g 1 Tiotropium [place] Monohydrate (SPIRIVA RESPIMAT) 1.25 MCG/ACT AERS Inhale 1.25 mcg into the lungs Verapamil HCl 40 MG Oral Tablet (CALAN) TAKE 1 TABLET BY MOUTH TWICE A DAY 180 tablet 1 azelastine (ASTELIN) 0.1 % nasal spray 2 sprays by Nasal route Two Times Daily Use in each nostril as directed (Patient not taking: Reported on 07/24/2019 ) 30 mL 12 fluticasone (FLONASE) 50 MCG/ACT nasal spray 2 sprays by Nasal route Two Times Daily (Patientnot taking: Reported on 07/24/2019) 16 g 12 Levocetirizine Dihydrochloride 5 MG Oral Tablet (XYZAL) Take by mouth daily predniSONE 20 MG Oral Tablet (DELTASONE) Sodium Chloride-Sodium Bicarb 2300-700 MG PACK 50 mLs by Nasal route Two Times Daily (Patientnot taking: Reported on 07/24/2019) 100 each 12 No current facility-administered medications on file prior [...] nutritional supplements; and tramadol. Review of Systems Constitutional: Positive for diaphoresis and fever. Gastrointestinal: Positive for abdominal pain, diarrhea, nausea and vomiting. Negative for abdominaldistention, anal bleeding, blood in stool, constipation and rectal pain. Objective: Visit Vitals BP 108/72 (BP Location: Left arm, Patient Position: Sitting, Cuff size: Regular) Pulse 96 Temp 36.4 C (97.5 F) (Tympanic) Resp 18 Ht 1.702 m (5' 7.01") Wt 84.6 kg (186 lb 6.4 oz) LMP 07/06/2019 (Approximate) SpO2 98% BMI 29.19 kg/m Physical Exam Constitutional: General: She is not in acute distress. Appearance: She is not ill-appearing, toxic-appearing or diaphoretic. Cardiovascular: Rate and Rhythm: Normal rate and regular rhythm. Heart sounds: No murmur. No friction rub. No gallop. Pulmonary: Effort: Pulmonary effort is normal. No respiratory distress. Breath sounds: Normal breath sounds. No stridor. No wheezing, rhonchi or rales. Chest: Chest wall: No tenderness. Abdominal: Tenderness: There is abdominal tenderness in the epigastric area. There is no right CVA tenderness or left CVA tenderness. Assessment: 1. Diarrhea, unspecified type Community-Acquired Diarrhea Panel Community-Acquired Diarrhea Panel 2. Nausea Advised patient due to the frequent ABX treatments she is at risk for Cdiff, advised against using Imodium until stool culture results are available, encouraged to increase her fluid intake and take PRN Zofran for severe nausea, if you are unable to tolerate fluids you must seek treatment in ED, she continues to have sinus related concerns and is actively seeing ENT, will see if we can reach out to their office and discuss with her provider regarding ongoing symptoms, follow up as scheduled results pending, patient agreeable to this plan Plan: Shannan was seen today for fever, cough, emesis, diarrhea and abdominal pain. Diagnoses and all orders for this visit: Diarrhea, unspecified type - Community-Acquired Diarrhea Panel; Future - Community-Acquired Diarrhea Panel Nausea Return if symptoms worsen or fail to improve. Patient Instructions Patient Education Diarrhea with Uncertain Cause (Adult) Diarrhea is when stools are loose and watery. This can be caused by: Viral infections Bacterial infections Food poisoning Parasites Irritable bowel syndrome (IBS) Inflammatory bowel diseases such as ulcerative colitis, Crohn's disease, and celiac disease Food intolerance, such as to lactose, the sugar found in milk and milk products Reaction to medicines like antibiotics, laxatives, cancer drugs, and antacids Along with diarrhea, you may also have: Abdominal pain and cramping Nausea and vomiting Loss of bowel control Fever and chills Bloody stools In some cases, antibiotics may help to treat diarrhea. You may have a stool sample test. This is done to see what is causing your diarrhea, and if antibiotics will help treat it. The results of a stoolsample test may take up to 2 days. The healthcare provider may not give you antibiotics until he or she has the stool test results. Diarrhea can cause dehydration. This is the loss of too much water and other fluids from the body. When this occurs, body fluid must be replaced. This can be done with oral rehydration solutions. Oral rehydration solutions are available at drugstores and grocery stores without a prescription. Sports drinks are not the best choice if you are very dehydrated. They have too much sugar and not enough electrolytes. Home care Follow all instructions given by your healthcare provider. Rest at home for the next 24 hours, or until you feel better. Avoid caffeine, tobacco, and alcohol. These can make diarrhea, cramping, and pain worse. If taking medicines: Rvee-kck-vkbknbq nausea and diarrhea medicines are generally OK unless you experience fever or blood stool. Check with your doctor first in those circumstances. You may use acetaminophen or NSAID medicines like ibuprofen or naproxen to reduce pain and fever. Dont use these if you have chronic liver or kidney disease, or ever had a stomach ulcer or gastrointestinalbleeding. Don't use NSAID medicines if you are already taking one for another condition (like arthritis) or are on daily aspirin therapy (such as for heart disease or after a stroke).Talk with your healthcare provider first. If antibiotics were prescribed, be sure you take them until they are finished. Dont stop taking them even when you feel better. Antibiotics must be taken as a full course. To prevent the spread of illness: Remember that washing with soap and water and using alcohol-based audit partner is the best way to prevent the spread of infection. Dry your hands with a single use towel (like a paper towel). Clean the toilet after each use. Wash your hands before eating. Wash your hands before and after preparing food. Keep in mind that people with diarrhea or vomiting should not prepare food for others. Wash your hands after using cutting boards, countertops, and knives that have been in contact with raw foods. Wash and then peel fruits and vegetables. Keep uncooked meats away from cooked and saxew-kk-sik foods. Use a food thermometer when cooking. Cook poultry to at least 165F (74 C). Cook ground meat (beef, veal, pork, golden) to at least 160F (71C) . Cook fresh beef, veal, golden, and pork toat least 145F (63C). Dont eat raw or undercooked eggs (poached or maxine side up), poultry , meat, or unpasteurized milk and juices. Food and drinks The main goal while treating vomiting or diarrhea is to prevent dehydration. This is done by taking small amounts of liquids often. Keep in mind that liquids are more important than food right now. Drink only small amounts of liquids at a time. Dont force yourself to eat, especially if you arehaving cramping , vomiting, or diarrhea. Dont eat large amounts at a time, even if you are hungry. If you eat, avoid fatty, greasy, spicy, or fried foods. Dont eat dairy foods or drink milk if you have diarrhea.These can makediarrhea worse. During the first 24 hours you can try: Oral rehydration solutions. Sports drinks may be used if you are not too dehydrated and areotherwise healthy. Soft drinks without caffeine Mylene manda Water (plain or flavored) Decaf tea or coffee Clear broth, consomm, or bouillon Gelatin, popsicles, or frozen fruit juice bars The second 24 hours, if you are feeling better, you can add: Hot cereal, plain toast, bread, rolls, or crackers Plain noodles, rice, mashed potatoes, chicken noodle soup, or rice soup Unsweetened canned fruit (no pineapple) Bananas As you recover: Limit fat intake to less than 15 grams per day. Dont eat margarine, butter, oils, mayonnaise, sauces, gravies, fried foods, peanut butter, meat, poultry, or fish. Limit fiber. Dont eat raw or cooked vegetables, fresh fruits except bananas, or bran cereals. Limit caffeine and chocolate. Limit dairy. Dont use spices or seasonings except salt. Go back to your normal diet over time, as you feel better and your symptoms improve. If the symptoms come back, go back to a simple diet or clear liquids. Follow-up care Follow up with your healthcare provider, or as advised. If a stool sample was taken or cultures weredone, call the healthcare provider for the results as instructed. Call 911 Call 911 if you have any of these symptoms: Trouble breathing Confusion Extreme drowsiness or trouble walking Loss of consciousness Rapid heart rate Chest pain Stiff neck Seizure When to seek medical advice Call your healthcare provider right away if any of these occur: Abdominal pain that gets worse Constant lower right abdominal pain Continued vomiting and inability to keep liquids down Diarrhea more than 5 times a day Blood in vomit or stool Dark urine or no urine for 8 hours, dry mouth and tongue, tiredness, weakness, or dizziness Drowsiness New rash You dont get better in 2 to 3 days Fever of 100.4F (38C) or higher, or as directed by your healthcare provider Date Last Reviewed: 12/19/201719996451-1955 The [email or web address]. [address] [place] [address], [place] [address]. All rights reserved. This information is not intended as a substitute for professional medical care. Always follow your healthcare professional's instructions. documented in this encounter Plan of Treatment Date Type Specialty Care Team Description 09/17/2019 Initial consult Otolaryngology Rose Sierra MD [address] [place] [address] 09/30/2019 Office Visit Family Medicine Mary Freeman NP [address] [place] [id number] [phone] 10/05/2019 Office Visit Rheumatology Jeannie Morrison MD [address] [facility] [address] [place] [address] [phone] Name Type Priority Associated Diagnoses Order Schedule Community-Acquired Microbiology Routine Diarrhea, unspecified 1 Occurrences starting Diarrhea Panel type 07/24/2019 until 01/22/2020 Health Maintenance Due Date Last Done Comments [...] of this encounter Implants Implanted Type Area Electronic [employer] Technical Device Shelf Expiration Model / Serial Identifier Date / Lot Graft Allomax 2cm X 4cm. - [id number] Nose [facility] 04/16/2023 [id number] / Implanted: Qty: 1 on 01/14/2019 by Jasbir Moran MD at OR [id number] / [id number] documented as of this encounter Results Not on filedocumented in this encounter Visit Diagnoses Diagnosis Diarrhea, unspecified type - Primary Nausea Nausea alone documented in this encounter
[2019-09-06 17:08] VITALS: BP 110/77
[2019-09-06] MEDS ORDERED: Albuterol 2.5 MG/3 ML NEB.SOL* (0.083%) INH ONE (17:19)
--- NOTE | 2019-09-06 17:21 | UC ---
Throat Pain/Nasal Foreign HPI - HPI Summary HPI Summary: 34-year-old woman comes in with a chief complaint of 3 weeks of upper respiratory tract infection symptoms. She reports sinus pressure rhinorrhea cough chest congestion. Reports the rhinorrhea is yellow and green. Patient also reports she's had some spinning dizziness and her ears feel full and pressure. She does report that she has meclizine at home. - History of Current Complaint Chief Complaint: UCGeneralIllness Stated Complaint: HEADACHE, NAUSEA Time Seen by Provider: 09/06/19 16:50 Hx Last Menstrual Period: 08/28/19 Pain Intensity: 9 - Allergies/Home Medications Allergies/Adverse Reactions: Allergies Allergy/AdvReac Type Severity Reaction Status Date / Time amitriptyline Allergy Unknown Verified 09/06/19 17:08 Reaction Details amoxicillin Allergy Anaphylatic Verified 09/06/19 17:08 Shock bupropion Allergy Unknown Verified 09/06/19 17:08 Reaction Details butalbital Allergy Unknown Verified 09/06/19 17:08 Reaction Details carisoprodol Allergy Unknown Verified 09/06/19 17:08 Reaction Details cefaclor Allergy Unknown Verified 09/06/19 17:08 Reaction Details cefadroxil Allergy Unknown Verified 09/06/19 17:08 Reaction Details cefdinir Allergy Unknown Verified 09/06/19 17:08 Reaction Details celecoxib Allergy Unknown Verified 09/06/19 17:08 Reaction Details cephalexin Allergy Unknown Verified 09/06/19 17:08 Reaction Details ciprofloxacin Allergy Numbness Verified 09/06/19 17:08 And Tingling clarithromycin Allergy Unknown Verified 09/06/19 17:08 Reaction Details clindamycin Allergy Unknown Verified 09/06/19 17:08 Reaction Details codeine Allergy Unknown Verified 09/06/19 17:08 Reaction Details desogestrel Allergy Unknown Verified 09/06/19 17:08 Reaction Details donepezil Allergy Unknown Verified 09/06/19 17:08 Reaction Details doxycycline Allergy Unknown Verified 09/06/19 17:08 Reaction Details drospirenone Allergy Unknown Verified 09/06/19 17:08 Reaction Details duloxetine [From Cymbalta] Allergy Unknown Verified 09/06/19 17:08 Reaction Details eletriptan Allergy Unknown Verified 09/06/19 17:08 Reaction Details escitalopram Allergy Unknown Verified 09/06/19 17:08 Reaction Details ethinyl estradiol Allergy Unknown Verified 09/06/19 17:08 [From Jolessa] Reaction Details fluoxetine Allergy Unknown Verified 09/06/19 17:08 Reaction Details gabapentin Allergy Hives Verified 09/06/19 17:08 hydrocodone Allergy Unknown Verified 09/06/19 17:08 Reaction Details ibuprofen Allergy Unknown Verified 09/06/19 17:08 Reaction Details lamotrigine [From Lamictal] Allergy Unknown Verified 09/06/19 17:08 Reaction Details levocetirizine [From Xyzal] Allergy Hives Verified 09/06/19 17:09 levofloxacin [From Levaquin] Allergy Unknown Verified 09/06/19 17:08 Reaction Details levonorgestrel [From Jolessa] Allergy Unknown Verified 09/06/19 17:08 Reaction Details lithium Allergy Unknown Verified 09/06/19 17:08 Reaction Details loratadine Allergy Unknown Verified 09/06/19 17:08 Reaction Details meloxicam Allergy Unknown Verified 09/06/19 17:08 Reaction Details metformin Allergy Unknown Verified 09/06/19 17:08 Reaction Details metoclopramide [From Reglan] Allergy Unknown Verified 09/06/19 17:08 Reaction Details naproxen Allergy Unknown Verified 09/06/19 17:08 Reaction Details norethindrone Allergy Unknown Verified 09/06/19 17:08 [From Necon 0.5/35 (21)] Reaction Details pioglitazone [From Actos] Allergy Unknown Verified 09/06/19 17:08 Reaction Details pregabalin Allergy Anaphylatic Verified 09/06/19 17:08 Shock propranolol Allergy Unknown Verified 09/06/19 17:08 Reaction Details red dye Allergy Unknown Verified 09/06/19 17:08 Reaction Details rizatriptan [From Maxalt] Allergy Unknown Verified 09/06/19 17:08 Reaction Details sertraline [From Zoloft] Allergy Unknown Verified 09/06/19 17:08 Reaction Details Sulfa (Sulfonamide Allergy Hives Verified 09/06/19 17:08 Antibiotics) sulfamethoxazole Allergy Unknown Verified 09/06/19 17:08 [From Bactrim] Reaction Details sumatriptan [From Imitrex] Allergy Unknown Verified 09/06/19 17:08 Reaction Details topiramate [From Topamax] Allergy Unknown Verified 09/06/19 17:08 Reaction Details tramadol Allergy Unknown Verified 09/06/19 17:08 Reaction Details trazodone Allergy Unknown Verified 09/06/19 17:08 Reaction Details trimethoprim [From Bactrim] Allergy Unknown Verified 09/06/19 17:08 Reaction Details venlafaxine [From Effexor] Allergy Unknown Verified 09/06/19 17:08 Reaction Details zolmitriptan [From Zomig] Allergy Unknown Verified 09/06/19 17:08 Reaction Details most antibiotic Allergy Unknown Anaphylatic Uncoded 09/06/19 17:08 Shock CI pigment blue Allergy Unknown Uncoded 09/06/19 17:08 Reaction Details sprintec Allergy Unknown Uncoded 09/06/19 17:08 Reaction Details triximet Allergy Unknown Uncoded 09/06/19 17:08 Reaction Details VINYL Allergy problems Uncoded 09/06/19 17:08 with breathing Home Medications: Home Medications Eth Estradiol/Drospirenone(NF) [Lauren 28(NF)] 1 tab PO DAILY 09/06/19 [History Confirmed 09/06/19] PMH/Surg Hx/FS Hx/Imm Hx Previously Healthy: Yes - LUPUS Respiratory History: Asthma GI/ History: Gastroesophageal Reflux Other History Of: Negative For: HIV, Hepatitis B, Hepatitis C, Anticoagulant Therapy - Surgical History Surgical History: Yes Surgery Procedure, Year, and Place: leep procedure 2013, foot operation 2016, fundoplication, sinus endoscopy - Family History Known Family History: Positive: Cardiac Disease, Hypertension - Social History Alcohol Use: None Substance Use Type: None Smoking Status (MU): Former Smoker Amount Used/How Often: 1 PPD X 6 MONTHS Have You Smoked in the Last Year: No When Did the Patient Quit Smoking/Using Tobacco: 2009 - Immunization History Most Recent Influenza Vaccination: unknown Hx Tetanus, Diphtheria Vaccination: Yes Vaccination Up to Date: Yes Review of Systems All Other Systems Reviewed And Are Negative: Yes Constitutional: Positive: Other - SEE HPI Skin: Positive: Negative Eyes: Positive: Negative ENT: Positive: Nasal Discharge Respiratory: Positive: Cough, Other - SEE HPI Cardiovascular: Positive: Negative Gastrointestinal: Positive: Negative Motor: Positive: Negative Neurovascular: Positive: Negative Musculoskeletal: Positive: Negative Neurological/Mental Status: Positive: Negative Psychological: Positive: Negative Is Patient Immunocompromised?: Yes - on Plaquenil Physical Exam Triage Information Reviewed: Yes Appearance: Well-Appearing, No Pain Distress, Well-Nourished Vital Signs: Initial Vital Signs Temp 98.2 F 09/06/19 17:01 Pulse 87 09/06/19 17:01 Resp 14 09/06/19 17:01 BP 110/77 09/06/19 17:01 Pulse Ox 100 09/06/19 17:01 Vital Signs Reviewed: Yes Eye Exam: Normal Eyes: Positive: Conjunctiva Clear ENT: Positive: Pharynx normal, Nasal congestion, TMs normal Neck: Positive: Supple Respiratory: Positive: Lungs clear, Normal breath sounds, No respiratory distress Cardiovascular: Positive: RRR Musculoskeletal: Positive: Strength Intact, ROM Intact Neurological: Positive: Alert Psychological: Positive: Age Appropriate Behavior Skin Exam: Normal Throat Pain/Nasal Course/Dx - Course Course Of Treatment: Patient reports that for bronchitis she takes a azithromycin 500 mg once a day for 5 days and that the Z-Michael does not do anything for her bronchitis. She prefers to not be on prednisone at this time but she did receive a nebulizer of albuterol here in clinic. Patient follow-up with primary care doctor get reevaluated sooner if worse or any questions or concerns. - Differential Dx/Diagnosis Provider Diagnosis: Bronchitis Discharge ED - Sign-Out/Discharge Documenting (check all that apply): Patient Departure All imaging exams completed and their final reports reviewed: No Studies - Discharge Plan Condition: Stable Disposition: HOME Prescriptions: Azithromycin 500 mg PO DAILY #5 tablet Patient Education Materials: Acute Bronchitis (ED) Referrals: Sugey Johnson MD [Primary Care Provider] - Additional Instructions: FOLLOW UP WITH YOUR DOCTOR IF NOT COMPLETELY IMPROVED. GET REEVALUATED SOONER IF NOT IMPROVED OR WORSE OR ANY QUESTIONS OR CONCERNS. - Billing Disposition and Condition Condition: STABLE Disposition: Home
== END 2019-09-06 17:52 | disposition home or self-care (01) ==
LOC: UCCORT 15:57
DX: J45.909 Unspecified asthma, uncomplicated (principal); Z88.8 Allergy status to other drugs, medicaments and biological substances; Z88.0 Allergy status to penicillin; Z88.1 Allergy status to other antibiotic agents; Z88.2 Allergy status to sulfonamides; Z88.5 Allergy status to narcotic agent; Z88.6 Allergy status to analgesic agent; Z91.09 Other allergy status, other than to drugs and biological substances; Z87.891 Personal history of nicotine dependence
CPT/HCPCS: 99212; G0463